=== PATIENT | female | born 1985 | race Asian ===

== ENCOUNTER 2021-10-04 08:06 | Outpatient (CLI) | payer OTHER, SELFPAY ==
[2021-10-04 09:01] LABS: Glucose Fasting Check 96 mg/dl (60-115)
[2021-10-04 13:08] LABS: Glucose GTT-Gestational 3 Hr 104 mg/dl (70-140)
[2021-10-04 13:19] LABS: Glucose 1 Hour Gest 200 mg/dl (70-180)
--- OUTSIDE RECORDS SUMMARY | 2021-10-11 01:11 | XMS_ITS | Encounter Summary ---
:1985 Author Organization [facility] Address [address] [place] [address] Care Team Providers Name Role Phone Elsewhere, Pcp Primary Care Provider Unavailable Reason for Visit Appointment Request (Routine) - Closed Specialty Diagnoses / Procedures Referred By Contact Refer red To Contact Maternal and Diagnoses Maternal Care For Known Or Suspected Abnormality And Damage NOS Sherly Thompson M.D. Medicine [address] [place] [address] Referral ID Status Reason Start Date Expiration Date Visits Requ ested Visits Authorized [id number] Closed 08/07/2021 08/07/2022 1 1 Encounter Details Date Type Department Care Team Description 09/19/2021 Routine Department of Radha Goddard Obstetrics and [place] Maternal Age Affecting Gynecology in [address] [place] [address] Management [place], [place] ([facility]) (Primary Dx) [address] [place] [id number] [place], [place] [phone] (Work) [phone] Social History Tobacco Use Types Packs/Day Years Used Date Smoking Tobacco: Never Alcohol Use Standard Drinks/Week Comments Never 0 (1 standard drink = 0.6 oz pure alcoho l) Alcohol Habits Answer Date Recorded How often do you have a drink containing alcohol? Never 09/19/2021 How many drinks containing alcohol do you have on a typical Not asked day when you are drinking? How often do you have six or more drinks on one occasion? No t asked Comment: Not asked Social Isolation Answer Date Recorded In a typical week, how many times do you talk on the Twice a week 09/19/2021 phone with family, friends, or neighbors? How often do you get together with friends or Once a week 09/19/2021 relatives? How often do you attend baptism or restorationism services? Never 09/19/2021 Do you belong to any clubs or organizations such as No 09/19/2021 baptism groups, unions, fraternal or athletic groups, or school groups? How often do you attend meetings of the clubs or Patient ref used 09/19/2021 organizations you belong to? Are you now , , , , 09/19/2021 never or living with a partner? Physical Activity Answer Date Recorded On average, how many days per week do you engage in moderate to 2 days 09/19/2021 strenuous exercise (like walking fast, running, jogging, dancing, swimming, biking, or other activities that cause a light or heavy sweat)? On average, how many minutes do you engage in exercise at th is 30 min 09/19/2021 level? Stress Answer Date Recorded Do you feel stress - tense, restless, nervous, or anxious, N ot at all 09/19/2021 or unable to sleep at night because your mind is troubled all the time - these days? Financial Resource Strain Answer Date Recorded How hard is it for you to pay for the very basics like Not h marlen at all 09/19/2021 food, housing, medical care, and heating? Intimate Partner Violence Answer Date Recorded Within the last year, have you been afraid of your partner o r No 09/19/2021 ex-partner? Within the last year, have you been humiliated or emotionall y No 09/19/2021 abused in other ways by your partner or ex-partner? Within the last year, have you been kicked, hit, slapped, or No 09/19/2021 otherwise physically hurt by your partner or ex-partner? Within the last year, have you been raped or forced to have any No 09/19/2021 kind of sexual activity by your partner or ex-partner? Food Insecurity Answer Date Recorded Within the past 12 months, you worried that your food would Never true 09/19/2021 run out before you got money to buy more. Within the past 12 months, the food you bought just didn't N ot asked last and you didn't have money to get more. Transportation Needs Answer Date Recorded In the past 12 months, has lack of transportation kept you f rom No 09/19/2021 medical appointments or from getting medications? In the past 12 months, has lack of transportation kept you f rom No 09/19/2021 meetings, work, or getting things needed for daily living? Housing Stability Answer Date Recorded In the last 12 months, was there a time when you were not ab le No 09/19/2021 to pay the mortgage or rent on time? In the last 12 months, how many places have you lived? 1 09/19/2021 In the last 12 months, was there a time when you did not hav e a No 09/19/[address] or slept in a retirement (including now)? Education Answer Date Recorded What is the highest level of school you have Some college, n o degree 09/19/2021 completed or the highest degree you have received? 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 - 09/19/2021 3:00 PM CDT SUBJECTIVE Markus Esteves is a 35 y.o. at 19w4d. Estimated Date of Delivery: 02/05/22 is determined by LMP consistent with 8 week ultrasound. She is here today for consultation from [facility] to issues as listed below. HISTORY OF PRESENT CONDITION OB History Para Term AB Living 2 1 1 1 SAB IAB Ectopic Molar Multiple Live Births 1 # Outcome Date GA Lbr Rishi/2nd Weight Sex Delivery Anes PTL Lv 2 Current 1 Term 01/28/19 3.997 kg M CS-LTranv EPI N HAMLET Complications: Failure to Progress in First Stage Issues This : 1. Fibroid uterus -Multiple fibroids. the largest is left lateral =4.3 x 3.3cm 2. 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 History of CD x 1 - planning repeat CD 4. AMA - declines genetic testing/screening - continue baby aspirin 5. History of pleural effusions - Ddx preeclampsia vs iatrogenic volume overload OBJECTIVE VITAL SIGNS Temperature: [36.3 ??C] 36.3 ??C Blood Pressure: (120)/(77) 120/77 SpO2: [99 %] 99 % Weight: [92.9 kg] 92.9 kg Pulse Rate: [83] 83 DIAGNOSTICS OB US Anatomy 09/19: Normal Anatomy Scan Acharya . No abnormalities identified. Size equals dates by LMP, first trimester ultrasound. The Placenta is without evidence of previa. The cervix is long and closed. The amniotic fluid appears normal. The adnexae appear normal. Multiple fibroids. the largest is left lateral =4.3 x 3.3cm ASSESSMENT / PLAN Ms. Esteves is a 35 y/o @ 20w1d who presents for [facility] consultation due to above issues. Anatomy ultrasound as written above was reviewed today with patient. Normal anatomy scan today. Inherent risks of advanced maternal age reviewed including aneuploidy, growth restriction, gestational diabetes, preeclampsia, delivery, section. We reviewed types of genetic screening and testing, patient declines at this time. She is currently taking baby aspirin, encouraged to continue. We reviewed risks related to fibroids in including hemorrhage, labor, degeneration and torsion. We reviewed delivery planning (TOLAC vs repeat CD) and patient is planning for repeat at this time. Does not plan on having more children currently. Of note, previously charted in patient diagnoses that patient has a history of cardiomyopathy-- this is not correct. Upon review of her history patient presented with shortness of breath on POD#5 and had a normal echo with LVEF 60-65%. Blood pressures were in the mild range. Normal plts andCr (LFTs not obtained). CT scan was notable for pleural effusions and symptoms resolved with lasix treatment. Ddx on chart review includes preeclampsia vs iatrogenic volume overload. No indication for repeat maternal echo at this time. In summary, patient may continue her regular care and does not need continued MFM management. Please refer back should any complications develop. Recommendations in addition to routine care: Declines genetic screening/testing Continue baby aspirin Consider screening growth US at 32 wga-- also follow up fibroid size at this time Consider testing with weekly NSTs at 36 wga Dispo: Routine care Debby Goddard M.D. MFM Fellow PGY-6 Pager [phone] documented in this encounter Plan of Treatment Not on filedocumented as of this encounter Visit Diagnoses Diagnosis Multigravida Advanced Maternal Age Affec ting Management (HCC) - Primary documented in this encounter Care Teams It Specialist Relationship Specialty Start Date End Date Elsewhere, Pcp PCP - General Family Medicine 02/03/19 documented as of this encounter
--- OUTSIDE RECORDS SUMMARY | 2021-10-11 01:11 | XMS_ITS | Encounter Summary ---
:1985 Author Organization [facility] Address [address] [place] [address] Care Team Providers Name Role Phone Elsewhere, Pcp Primary Care Provider Unavailable Encounter Details Date Type Department Care Team Description 08/07/2021 Orders Only Department of Nery Murrell Supervis ion Of Other Obstetrics and L, R.N. High Risk Pregnancies Gynecology in [address] [place] [address] Unspecified Trimester [place], [place] (HCC) (Primary Dx) [address] [place] [id number] [place] [phone] Social History Tobacco Use Types Packs/Day Years Used Date Smoking Tobacco: Never Alcohol Habits Answer Date Recorded How often [...] 09/19/2021 relatives? How often do you attend sabianist or confucianism services? Never 09/19/2021 Do you belong to any clubs or organizations such as No 09/19/2021 sabianist groups, unions, fraternal or athletic groups, or [...] place to sleep or slept in a [place] [facility] (including now)? Sex Assigned at Date Recorded Female 09/19/2021 11:18 AM CDT documented as of this encounter Plan of Treatment Not on filedocumented as of this encounter Visit Diagnoses Diagnosis Supervision Of Other High Risk Pregnanci es Unspecified Trimester (HCC) - Primary documented in this encounter Care Teams Valet Relationship Specialty Start Date End Date Elsewhere, Pcp PCP - General Family Medicine 02/03/19 documented as of this encounter
--- OUTSIDE RECORDS SUMMARY | 2021-10-11 01:11 | XMS_ITS | Encounter Summary ---
:1985 Author Organization [facility] Address [address] [place] [address] Care Team Providers Name Role Phone Elsewhere, Pcp Primary Care Provider Unavailable Reason for Visit Auth/Cert Specialty Diagnoses / Procedures Referred By Contact Refer red To Contact Diagnoses Shortness Of Breath cariomegaly Procedures R06.02 (ICD-10-CM) - Shortness Of Breath DIR Referral ID Status Reason Start Date Expiration Date Visits Requ ested Visits Authorized [id number] 1 1 Encounter Details Date Type Department Care Team Description 02/02/2019 - Hospital Encounter [facility] Flaquito Rubio M.D., M.P.H. [address] [place] [phone] Shortness Of Breath 02/03/2019 [facility] Joey Freeman M.D. [address] [place] [address] (Primary Dx) [facility], Third Floor [address] [place] [phone] Social History Tobacco Use Types Packs/Day Years [...] 09/19/2021 relatives? How often do you attend cheondoism or latter-day services? Never 09/19/2021 Do you belong to any clubs or organizations such as No 09/19/2021 cheondoism groups, unions, fraternal or athletic groups, or [...] place to sleep or slept in a assisted (including now)? Sex Assigned at Date Recorded Female 09/19/2021 11:18 AM CDT documented as of this encounter Last Filed Vital Signs Vital Sign Reading Time Taken Comments Blood Pressure 134/83 02/03/2019 3:41 PM SUPPLY CHAIN CONSULTANT Pulse 73 02/03/2019 3:41 PM SUPPLY CHAIN CONSULTANT Temperature 36.6 ??C (97.9 ??F) 02/03/2019 3:41 PM SUPPLY CHAIN CONSULTANT Respiratory Rate 22 02/03/2019 3:41 PM SUPPLY CHAIN CONSULTANT Oxygen Saturation 97% 02/03/2019 3:41 PM SUPPLY CHAIN CONSULTANT Inhaled Oxygen Concentration - - Weight 89.6 kg (197 lb 8.5 oz) 02/02/2019 10:13 PM SUPPLY CHAIN CONSULTANT Height 154.9 cm (5' 1) 02/02/2019 10:13 PM SUPPLY CHAIN CONSULTANT Body Mass Index 37.32 02/02/2019 10:13 PM SUPPLY CHAIN CONSULTANT documented in this encounter Discharge Summaries Beth Reynolds M.D. - 02/03/2019 3:43 PM CST DISCHARGE SUMMARY BRIEF OVERVIEW Discharge Provider: Joey Freeman M.D. Primary Care Providers: Elsewhere, Pcp (General) No address on file Primary Care Provider Phone Number: None Primary Care Provider Fax Number: None Admission Date: 02/02/2019 Discharge Date: 02/03/2019 PRINCIPAL DIAGNOSIS Dyspnea On Exertion SECONDARY DIAGNOSES Principal Problem: Dyspnea On Exertion Active Problems: Resection Teratoma Status Post Personal History Shortness Of Breath Resolved Problems: * No resolved hospital problems. * DISCHARGE DISPOSITION Home or Self Care [1] ACTIVE ISSUES REQUIRING FOLLOW UP Please establish care with a PCP as soon as you are able so they can continue to monitor you. Post-Hospital Provider: -If clinical suspicion for nephropathy continues to persist, consider a microalbumin:creatinine ratio. -Due to the ground glass opacities of the lungs, consider an AFP to monitor the status of her history of ovarian teratoma. OUTPATIENT FOLLOW UP No future appointments. TEST RESULTS PENDING AT DISCHARGE DETAILS OF HOSPITAL STAY REASON FOR ADMISSION Shortness Of Breath HOSPITAL COURSE Ms. 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 She had initially presented to an outside provider with these concerns and there was initial concernfor Peripartum Cardiomyopathy. A TTE was performed, but the read was initially unavailable, she was given 1 dose of Furosemide and she was then transferred and directly admitted to [facility] for further cares. On arrival here, she was hemodynamically stable and satting well on RA. Initial labs showing an NT-Pro BNP of 1138, High sensitivity Troponin of 14, repeat of 9, Mild anemia, Normal electrolytes. An outside CT Chest was overread which revealed no PE, but evidence of seemingly new ground glass opacities, discrete pulmonary nodules, and pleural effusions. The report of her outside TTE was obtained and showed a normal LVEF of 60-65% and no RV or diastolic abnormalities. Given these findings, Postpartumcardiomyopathy was felt to be less likely. The morning after admission, she felt well and much of her dyspnea had improved, seemingly with fluid removal from the diuretic. She was discharged in stable condition on 02/03/2019. CONSULTS ORDERED DURING THIS ADMISSION None CONDITION AT DISCHARGE stable Discharge instructions were provided to the patient and caregiver(s). LY CHAIN CONSULTANT documented in this encounter Discharge Instructions Discharge InstructionsJulia Fischer - 02/03/2019 7:57 AM CST You were discharged from the [facility] Medicine 2 ([facility]) Service. Please identify this service name if you call with questions after hospitalization. LY CHAIN CONSULTANT documented in this encounter Medications at Time of Discharge Medication Sig Dispensed Refills Start Date End Date ibuprofen (ADVIL,MOTRIN) Take 600 mg by mouth 0 1 04/02/2018 09/19/2021 600 mg tablet every 6 (six) hours as needed. documented as of this encounter H&P Notes Joey Freeman M.D. - 02/03/2019 4:05 PM CST #1 Volume overload #2 Dyspnea on exertion, improved #3 Ground glass and solid opacities on CT Chest #4 Post- day #6 following #5 Normocytic anemia #6 Leukocytosis #7 Elevated troponin I have discussed the history, physical exam, and assessment and plan with the medicine 2 team, and Iagree with the notes dated today. ??Please refer to the notes at the medicine 2 team for complete details. Brief Mrs. Esteves is a very pleasant 33-year-old woman admitted for dyspnea on exertion. On exam last night she was volume overloaded per the team. She was given furosemide, had effective diuresis and felt better. Her BNP was elevated up to 1138 within isolated trip own in elevation. Her chest imagingshowed pulmonary edema, pleural effusions and cardiomegaly. Her outside echocardiogram showed a normal ejection fraction of 60-65% and we did not feel the need to repeat it here. An informal bedside ultrasound was done by the procedure team and also confirmed a normal ejection fraction. Neither commented on diastolic function. For unclear reasons Mrs. Esteves was volume up though I see no cardiac cause. She did have lower extremity edema, and other causes of volume overload such as a low protein state from chronic liver disease (unlikely) or nephrotic syndrome could be entertained if fluid reaccumulates. Prior to discharge, we will assess O2 with ambulation. Indeterminate groundglass and solid nodular opacities, greater in the right should be followed up byher primary care provider. It would be reasonable to repeat a CT scan of the chest in 4-6 weeks. This scan could be non contrast. Of note, given her clinical response to diuresis, these do not appear to be causing her SOB. Finally, I will note that influenza and RSV were normal. LY CHAIN CONSULTANT Eric Arthur M.D. - 02/02/2019 11:07 PM CST I am seeing this patient with Dr. Guan. I saw and evaluated the patient, participating in the leach portions of the service and medical decision making. I have reviewed her excellent and comprehensive documentation and agree or amend as below. SUBJECTIVE Mrs. Esteves is a 33-year-old female with a history of immature teratoma s/p resection and adjuvant chemotherapy who presents for evaluation of dyspnea on exertion. Mrs. Esteves recently gave last week at 38 weeks and 2 days gestation. Her was only complicated by macrosomia, requiring a delivery. She went home on Saturday, 01/31. Around this time, she developed upper respiratory symptoms including nasal congestion and cough. Yesterday, she developed dyspnea on exertion. She can walk as far as down a standard hallway before having to stopto rest. She also had some orthopnea this morning. She presented to her local doctor, who performed echocardiogram at [facility] that reportedly showed an EF of 50%. She was directed to the [place] [facility] where she had a CT-PE showing bilateral pleural effusion, nodular ground-glass opacities, and negative for PE. Chest x-ray showed mild cardiomegaly but was otherwise clear.She received a dose of IV furosemide before transfer to [facility]. Speaking with Mrs. Esteves on the floor, she states she was in her usual health before the onset of URI symptoms and subsequent dyspnea on exertion. She denies sick contacts and did receive her flu vaccine this year. She is originally from [place] [facility], immigrated to [facility] at age 20. 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 She has hadno recurrence of this. She is currently breast-feeding, and her baby has been healthy since . She does endorse lower extremity edema, but states this has been stable since onset during her . She has no past cardiac history. She denies chest pain or dyspnea at rest. OBJECTIVE Physical Exam Vitals: 02/02/19 2215 BP: 152/81 Pulse: 77 Resp: Temp: SpO2: General: Alert, oriented, no acute distress. Heart: Regular rate and rhythm. No murmurs, gallops, or rubs. Lungs: Bibasilar crackles, diminished right lower field breath sounds. Breathing comfortably on roomair. Abdomen: Soft, nontender, nondistended. incision clean, dry, intact. Extremities: Trace lower extremity edema bilaterally. 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 Esteves is a 33-year-old female who presents for evaluation dyspnea on exertion in the setting of recent . She has clinical heart failure, with an initial concern for peripartum cardiomyopathy. Given her CT findings and URI symptoms, infection such as influenza deserves consideration as well. Nodular opacities can be seen with fungal infections as well, but she lacks other frankly infectious symptoms to go with this. is a risk for PE, though the CT she had does not appear consistent with this at my view. We will obtain basic labs including pro-BNP and one-time troponin, as well as swab for influenza and RSV. We will obtain an ECG and have radiology review her CT chest. We will need to track down the outside echo at [facility], and consider performing one here if this proves troublesome or does not provide all the information we need. She did receive furosemide in [place] and we will monitor her clinical status for improvement. Overall, she looks well and I am r eassured that her symptoms are primarily with exertion. Finally, she is currently and this will need to be a consideration with her ultimate treatment regimen. Rest per Dr. Guan. LY CHAIN CONSULTANT Nuvia Guan M.D. - 02/02/2019 10:02 PM CST SUBJECTIVE CHIEF COMPLAINT Ms. Markus Esteves is a 33 y.o. female who presents with shortness of breath. HISTORY OF PRESENT ILLNESS Ms. Esteves is a 33 year old woman with medical comorbidities of ovarian cancer s/p chemotherapy 2013who is day 5 from a C section delivery of a 38 1/7 weeks gestation now presenting with shortness of breath. She reports noticing shortness of breath with exertion last night. She is able to walk short distances, but going down the hallway would elicit dyspnea. She does report swelling of her lower extremities due to her . She denies any orthopnea, chest pain, nausea, or calf pain. Since saturday, she has also had nasal congestion, sore throat, and a cough. She denies any fevers, chills, or diarrhea. She called an outside provider and was brought in for workup. Per chart review, she has an EF of 50%, chest CT shows bilateral pleural effusion and ground glass nodular densities. Hemoglobin 9.8. She was a direct admit to the medicine service for further workup and management. No past medical history on file. Past Surgical History: Procedure Laterality Date ??? LAPAROTOMY N/A 09/01/2014 Laparotomy Notes: mini-laparotomy ??? OPERATIVE LAPAROSCOPY N/A 09/01/2014 Operative laparoscopy ??? OTHER CONVERTED SHX (SEE COMMENT) N/A 09/01/2014 Other Notes: Excision bilateral adnexal mass ??? OTHER CONVERTED SHX (SEE COMMENT) N/A 09/01/2014 1. Mini laparotomy. >2. Laparoscopic bilateral ovarian cystectomy. No family history on file. Social History Socioeconomic History ??? Marital status: Spouse name: Not on file ??? Number of children: Not on file ??? Years of education: Not on file ??? Highest education level: Not on file Occupational History ??? Not on file Social Needs ??? Financial resource strain: Not on file ??? Food insecurity: Worry: Not on file Inability: Not on file ??? Transportation needs: Medical: Not on file Non-medical: Not on file Tobacco Use ??? Smoking status: Never Smoker Substance and Sexual Activity ??? Alcohol use: Not on file ??? Drug use: Not on file ??? Sexual activity: Not on file Lifestyle ??? Physical activity: Days per week: Not on file Minutes per session: Not on file ??? Stress: Not on file Relationships ??? Social connections: Talks on phone: Not on file Gets together: Not on file Attends latter-day service: Not on file Active member of club or organization: Not on file Attends meetings of clubs or organizations: Not on file Relationship status: Not on file ??? Intimate partner violence: Fear of current or ex partner: Not on file Emotionally abused: Not on file Physically abused: Not on file Forced sexual activity: Not on file Other Topics Concern ??? Not on file Social History Narrative ??? Not on file Allergies not on file Active Home Medications Not on File REVIEW OF SYSTEMS Pertinent items are noted in HPI; all other review of systems was negative. OBJECTIVE VITAL SIGNS Temperature: [36.9 ??C] 36.9 ??C Resp Rate: [22] 22 Blood Pressure: (144-146)/(81-94) 144/94 SpO2: [93 %-98 %] 98 % Pulse Rate: [87-90] 87 PHYSICAL EXAM General: Alert, interactive, nontoxic appearing, no apparent distress Eyes: Pupils equal and round. Sclera anicteric ENT: Hearing intact, moist mucus membranes CV: +2 radial and posterior tibial pulses, S1 S2, normal rate, regular rhythm, no m/r/g Lungs: No increased work of breathing, crackles in bilateral lung bases Abdomen: Normal bowel sounds, soft, non-tender, non-distended Extremities: 2+ pitting edema in bilateral lower extremities Skin: No rashes or lesions on exposed surfaces. Neuro: Face symmetric, moves all extremities well Psych: Appropriate mood and affect, no evidence of disorganized thinking. ASSESSMENT / PLAN Ms. Esteves is a 33 year old woman with medical comorbidities of ovarian cancer s/p chemotherapy 2013who is day 5 from a C section delivery of a 38 1/7 weeks gestation now presenting with shortness of breath. #1 Resection Teratoma Status Post #2 Dyspnea On Exertion #3 Personal History #Dyspnea Differential diagnosis includes peripartum cardiomyopathy vs pulmonary embolism vs viral syndrome. 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 Pulmonaryembolism is less likely as patient is not hypoxemic. Given her URI symptoms, an infectious etiology should also be considered. Plan - CBC - BMP - Pro-BNP - Troponin - Influenza A/B and RSV PCR - Over read of outside CT - Obtain report of outside echo - EKG - Monitor I/Os and diurese as needed LY CHAIN CONSULTANT documented in this encounter Nursing Notes Gertrude Jung R.N. - 02/03/2019 5:06 PM CST Shift Goals: Clinical Goals for the Shift: Patient will discharge Identify possible barriers to meeting goals/advancing plan of care: none End of Shift Summary: Patient discharged home with family all questions answered. Gertrude Jung R.N. LY CHAIN CONSULTANT documented in this encounter Miscellaneous Notes Hospital Course - Beth Reynolds M.D. - 02/03/2019 1:18 AM CST Ms. 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 She had initially presented to an outside provider with these concerns and there was initial concernfor Peripartum Cardiomyopathy. A TTE was performed, but the read was initially unavailable, she was given 1 dose of Furosemide and she was then transferred and directly admitted to [facility] for further cares. On arrival here, she was hemodynamically stable and satting well on RA. Initial labs showing an NT-Pro BNP of 1138, High sensitivity Troponin of 14, repeat of 9, Mild anemia, Normal electrolytes. An outside CT Chest was overread which revealed no PE, but evidence of seemingly new ground glass opacities, discrete pulmonary nodules, and pleural effusions. The report of her outside TTE was obtained and showed a normal LVEF of 60-65% and no RV or diastolic abnormalities. Given these findings, Postpartumcardiomyopathy was felt to be less likely. The morning after admission, she felt well and much of her dyspnea had improved, seemingly with fluid removal from the diuretic. She was discharged in stable condition on 02/03/2019. LY CHAIN CONSULTANT documented in this encounter Plan of Treatment Not on filedocumented as of this encounter Procedures Procedure Name Priority Date/Time Associated Comments Diagnosis ALBUMIN, RANDOM, U Routine 02/03/2019 5:06 Result s for PM SUPPLY CHAIN CONSULTANT this procedure are in the results section. TROPONIN T, 5TH GEN, Timed 02/03/2019 12:24 Res ults for P PM SUPPLY CHAIN CONSULTANT this procedure are in the results section. CBC WITHOUT Routine 02/03/2019 5:30 Results for DIFFERENTIAL, B AM SUPPLY CHAIN CONSULTANT this procedu re are in the results section. BASIC METABOLIC Routine 02/03/2019 5:30 Results f or PANEL, S/P AM SUPPLY CHAIN CONSULTANT this procedure are in the results section. ECG Routine 02/02/2019 11:27 Results for PM SUPPLY CHAIN CONSULTANT this procedure are in the results section. NT-PRO B-TYPE Routine 02/02/2019 11:19 Results fo r NATRIURETIC PEPTIDE PM SUPPLY CHAIN CONSULTANT this pro cedure (BNP), S are in the results section. CBC WITH Routine 02/02/2019 11:19 Results for DIFFERENTIAL, B PM SUPPLY CHAIN CONSULTANT this procedu re are in the results section. TROPONIN T, 5TH GEN, Routine 02/02/2019 11:19 Res ults for P PM SUPPLY CHAIN CONSULTANT this procedure are in the results section. BASIC METABOLIC Routine 02/02/2019 11:19 Results for PANEL, S/P PM SUPPLY CHAIN CONSULTANT this procedure are in the results section. INTERPRETATION OF RAD - Routine 02/02/2019 11:16 Resul ts for OUTSIDE CT CHEST (most inpatients PM SUPPLY CHAIN CONSULTANT this pr ocedure and all are in the outpatients) results section. INFLUENZA A/B AND Routine 02/02/2019 11:14 Result s for RSV, PCR PM SUPPLY CHAIN CONSULTANT this procedure are in the results section. documented in this encounter Results Microalbumin, Random, Urine (02/03/2019 5:06 PM SUPPLY CHAIN CONSULTANT) P athologist Signature Albumin, 14.0 mg/L 02/03/2019 CHRISTIANO Random, U 5:51 PM SUPPLY CHAIN CONSULTANT Comment: ----ADDITIONAL INFORMATION---- This test has been modified from the man ufactangelr's instructions. Its performance characteri stics were determined by [facility] in a manner co nsistent with CLIA requirements. This test has not bee n cleared or approved by the U.S. Food and Drug Admin istration. Creatinine 183 mg/dL 02/03/2019 5:51 PM SUPPLY CHAIN CONSULTANT CHRISTIANO Albumin/Creatinine Ratio 8 <25 mg/g 02/03/2019 5:51 PM SUPPLY CHAIN CONSULTANT CHRISTIANO Specimen Anatomical Collection Method Collection Time Receive d Time (Source) Location / / Volume Laterality Urine (Urine, 02/03/2019 5:06 PM 02/04/20 19 5:06 Clean Catch) SUPPLY CHAIN CONSULTANT PM SUPPLY CHAIN CONSULTANT Beth Reynolds M.D. LAB URINE ORDERABLES Performing Organization Address City/[facility] Phon e Number [facility] - [address] [address] [address] [place] [address] Troponin T, 5th Generation (02/03/2019 12:24 PM SUPPLY CHAIN CONSULTANT) P athologist Signature Troponin T, 5th 9 <=10 ng/L [facility]/03[facility] SUPPLY CHAIN CONSULTANT Specimen Anatomical Collection Method Collection Time Receive d Time (Source) Location / / Volume Laterality Blood (Blood, 02/03/2019 12:24 02/03/2019 Venous) PM SUPPLY CHAIN CONSULTANT 12:31 PM SUPPLY CHAIN CONSULTANT Jose Spencer M.D. LAB BLOOD ADD-ON Performing Organization Address City/[facility] Phon e Number [facility] - [address] (ABNORMAL) CBC without Differential (02/03/2019 5:30 AM SUPPLY CHAIN CONSULTANT) Patholo gist Method Time Signature Hemoglobin 10.4 (L) 11.6 - 02/03/2019 DTL 15.0 g/dL 6:11 AM SUPPLY CHAIN CONSULTANT Hematocrit 32.6 (L) 35.5 - 02/03/2019 DTL 44.9 % 6:11 AM SUPPLY CHAIN CONSULTANT Erythrocytes 3.75 (L) 3.92 - 02/03/2019 [facility]TL 5.13 6:11 AM SUPPLY CHAIN CONSULTANT x10(12)/L MCV 86.9 78.2 - 02/03/2019 DTL 97.9 fL 6:11 AM SUPPLY CHAIN CONSULTANT RBC Distrib Width 15.5 12.2 - 02/03/2019 DTL 16.1 % 6:11 AM SUPPLY CHAIN CONSULTANT Platelet Count 310 157 - 371 02/03/2019 DTL x10(9)/L 6:11 AM SUPPLY CHAIN CONSULTANT Leukocytes 9.8 (H) 3.4 - 9.6 02/03/2019 DTL x10(9)/L 6:11 AM SUPPLY CHAIN CONSULTANT Specimen Anatomical Collection Method Collection Time Receive d Time (Source) Location / / Volume Laterality Blood (Blood, 02/03/2019 5:30 AM 02/04/20 19 6:03 Venous) SUPPLY CHAIN CONSULTANT AM SUPPLY CHAIN CONSULTANT Nuvia Guan M.D., M.P.H. LAB BLOOD ADD-ON Performing Organization Address City/State/ZIP Code Phon e Number [facility] - [address] [place], [place] [address] [address] [place] [address] [facility] [address] (ABNORMAL) BMP (Basic Metabolic Panel) (02/03/2019 5:30 AM SUPPLY CHAIN CONSULTANT) P athologist Signature Potassium, S 4.2 3.6 - 5.2 02/03/2019 DTL mmol/L 6:35 AM SUPPLY CHAIN CONSULTANT Sodium, S 141 135 - 145 02/03/2019 DTL mmol/L 6:35 AM SUPPLY CHAIN CONSULTANT Chloride, S 104 98 - 107 02/03/2019 DTL mmol/L 6:35 AM SUPPLY CHAIN CONSULTANT Bicarbonate, S 23 22 - 29 02/03/2019 DTL mmol/L 6:35 AM SUPPLY CHAIN CONSULTANT Anion Gap 14 7 - 15 02/03/2019 DTL 6:35 AM SUPPLY CHAIN CONSULTANT BUN (Blood Urea 18 6 - 21 02/03/2019 DTL Nitrogen), S mg/dL 6:35 AM SUPPLY CHAIN CONSULTANT Creatinine, S 0.86 0.59 - 1.04 02/03/2019 DTL mg/dL 6:35 AM SUPPLY CHAIN CONSULTANT eGFR-Non 88 >=60 02/03/2019 DTL Black/ mL/min/BSA 6:35 AM SUPPLY CHAIN CONSULTANT Citizen [place] Comment: ----ADDITIONAL INFORMATION---- Estimated GFR calculated using the 2009 CKD_EPI creatinine equation. eGFR-Black/ >90 >=60 mL/min/BSA 2018 6:35 AM SUPPLY CHAIN CONSULTANT DTL Comment: ----ADDITIONAL INFORMATION---- Estimated GFR calculated using the 2009 CKD_EPI creatinine equation. Calcium, Total, S 8.4 (L) 8.6 - 10.0 mg/dL 02/03/2019 6:35 AM SUPPLY CHAIN CONSULTANT DTL Glucose, S 84 70 - 140 mg/dL 02/03/2019 6:35 AM SUPPLY CHAIN CONSULTANT D TL Specimen Anatomical Collection Method Collection Time Receive d Time (Source) Location / / Volume Laterality Blood (Blood, 02/03/2019 5:30 AM 02/04/20 19 6:03 Venous) SUPPLY CHAIN CONSULTANT AM SUPPLY CHAIN CONSULTANT Nuvia Guan M.D., M.P.H. LAB BLOOD ADD-ON Performing Organization Address City/State/ZIP Code Phon e Number [facility] - [address] [place], [place] [address] [place] [address] [facility] [address] [facility] [address] ECG 12 Lead (02/02/2019 11:27 PM SUPPLY CHAIN CONSULTANT) P athologist Signature Ventricular Rate 76 BPM MUSE ECG/Min CT Interval 136 ms MUSE QRSD Interval 88 ms MUSE QT Interval 388 ms MUSE QTC Interval 436 ms MUSE P [place] 40 degrees MUSE R [place] 36 degrees MUSE T Wave [place] 33 degrees MUSE Specimen Anatomical Collection Method Collection Time Receive d Time (Source) Location / / Volume Laterality 02/02/2019 11:27 02/03/2019 5:37 PM SUPPLY CHAIN CONSULTANT AM SUPPLY CHAIN CONSULTANT Impressions MUSE - 02/03/2019 5:37 AM SUPPLY CHAIN CONSULTANT Normal sinus rhythm Normal ECG No previous ECGs available Reviewed by RADHA Wells Narrative This result has an attachment that is no t available. Procedure Note Bharat Barone M.D., Ph.D. - 9 IMPRESSION: Normal sinus rhythm Normal ECG No previous ECGs available Reviewed by RADHA Wells Nuvia Guan M.D., M.P.H. ECG ORDERABLES Performing Organization Address City/[facility]/ZIP Code Phon e Number MUSE MUSE NA (ABNORMAL) NT-Pro B-Type Natriuretic Peptide (BNP) (02/02/2019 11:19 PM SUPPLY CHAIN CONSULTANT) athologist Signature NT-Pro BNP 1138 (H) <=140 pg/mL 02/03/2019 DTL 12:39 AM SUPPLY CHAIN CONSULTANT Comment: NT-proBNP values less than 300 pg/mL hav e a 99% negative predictive value for excluding acute congestive heart macarena lure. A cutoff of 1200 pg/mL for patients with an eGFR<60 yields a diagno stic sensitivity and specificity of 89% and 72% for acute congestive heart f ailure. ??NT-proBNP values greater than 450 pg/mL are consistent with CHF i n adults under 50 years of age. Specimen Anatomical Collection Method Collection Time Receive d Time (Source) Location / / Volume Laterality Blood (Blood, 02/02/2019 11:19 02/02/2019 Venous) PM SUPPLY CHAIN CONSULTANT 11:54 PM SUPPLY CHAIN CONSULTANT Nuvia Guan M.D., M.P.H. LAB BLOOD ADD-ON Performing Organization Address City/State/[facility] Phon e Number [facility] - [address] [place] [address] Laboratories-[address] (ABNORMAL) Troponin T, 5th Generation (02/02/2019 11:19 PM SUPPLY CHAIN CONSULTANT) P athologist Signature Troponin T, 5th 14 (H) <=10 ng/L [facility]/02[facility] SUPPLY CHAIN CONSULTANT Specimen Anatomical Collection Method Collection Time Receive d Time (Source) Location / / Volume Laterality Blood (Blood, 02/02/2019 11:19 02/02/2019 Venous) PM SUPPLY CHAIN CONSULTANT 11:26 PM SUPPLY CHAIN CONSULTANT Nuvia Guan M.D., M.P.H. LAB BLOOD ADD-ON Performing Organization Address City/[facility] Phon e Number [facility] - [address] [place], [place] [address] [place], [place] [id number] [place] [address] (ABNORMAL) CBC with Differential (02/02/2019 11:19 PM SUPPLY CHAIN CONSULTANT) Patholo gist Method Time Signature Hemoglobin 11.5 (L) 11.6 - 02/03/2019 DTL 15.0 g/dL 12:01 AM SUPPLY CHAIN CONSULTANT Hematocrit 36.4 35.5 - 02/03/2019 DTL 44.9 % 12:01 AM SUPPLY CHAIN CONSULTANT Erythrocytes 4.19 3.92 - 02/03/2019 DTL 5.13 12:01 AM SUPPLY CHAIN CONSULTANT x10(12)/L MCV 86.9 78.2 - 02/03/2019 DTL 97.9 fL 12:01 AM SUPPLY CHAIN CONSULTANT RBC Distrib Width 15.3 12.2 - 02/03/2019 DTL 16.1 % 12:01 AM SUPPLY CHAIN CONSULTANT Platelet Count 312 157 - 371 02/03/2019 DTL x10(9)/L 12:01 AM SUPPLY CHAIN CONSULTANT Leukocytes 10.2 (H) 3.4 - 9.6 02/03/2019 DTL x10(9)/L 12:01 AM SUPPLY CHAIN CONSULTANT Neutrophils 8.33 (H) 1.56 - 02/03/2019 DTL 6.45 12:01 AM SUPPLY CHAIN CONSULTANT x10(9)/L Lymphocytes 1.01 0.95 - 02/03/2019 DTL 3.07 12:01 AM SUPPLY CHAIN CONSULTANT x10(9)/L Monocytes 0.69 0.26 - 02/03/2019 DTL 0.81 12:01 AM SUPPLY CHAIN CONSULTANT x10(9)/L Eosinophils 0.13 0.03 - 02/03/2019 DTL 0.48 12:01 AM SUPPLY CHAIN CONSULTANT x10(9)/L Basophils <0.03 0.01 - 02/03/2019 DTL 0.08 12:01 AM SUPPLY CHAIN CONSULTANT x10(9)/L Specimen Anatomical Collection Method Collection Time Receive d Time (Source) Location / / Volume Laterality Blood (Blood, 02/02/2019 11:19 02/02/2019 Venous) PM SUPPLY CHAIN CONSULTANT 11:54 PM SUPPLY CHAIN CONSULTANT Nuvia Guan M.D., M.P.H. LAB BLOOD ADD-ON Performing Organization Address City/State/ZIP Code Phon e Number [facility] - [address] [place], [place] [address] [place] [address] Laboratories-[facility] [address] (ABNORMAL) BMP (Basic Metabolic Panel) (02/02/2019 11:19 PM SUPPLY CHAIN CONSULTANT) P athologist Signature Potassium, S 4.1 3.6 - 5.2 02/03/2019 DTL mmol/L 12:39 AM SUPPLY CHAIN CONSULTANT Sodium, S 144 135 - 145 02/03/2019 DTL mmol/L 12:39 AM SUPPLY CHAIN CONSULTANT Chloride, S 103 98 - 107 02/03/2019 DTL mmol/L 12:39 AM SUPPLY CHAIN CONSULTANT Bicarbonate, S 22 22 - 29 02/03/2019 DTL mmol/L 12:39 AM SUPPLY CHAIN CONSULTANT Anion Gap 19 (H) 7 - 15 02/03/2019 DTL 12:39 AM SUPPLY CHAIN CONSULTANT BUN (Blood Urea 15 6 - 21 02/03/2019 DTL Nitrogen), S mg/dL 12:39 AM SUPPLY CHAIN CONSULTANT Creatinine, S 0.82 0.59 - 02/03/2019 DTL 1.04 mg/dL 12:39 AM SUPPLY CHAIN CONSULTANT eGFR-Non >90 >=60 02/03/2019 DTL Black/ mL/min/BSA 12:39 AM SUPPLY CHAIN CONSULTANT Citizen Of [place] Comment: ----ADDITIONAL INFORMATION---- Estimated GFR calculated using the 2009 CKD_EPI creatinine equation. eGFR-Black/ >90 >=60 mL/min/BSA 2018 12:39 AM SUPPLY CHAIN CONSULTANT DTL Comment: ----ADDITIONAL INFORMATION---- Estimated GFR calculated using the 2009 CKD_EPI creatinine equation. Calcium, Total, S 8.7 8.6 - 10.0 mg/dL 02/03/2019 12:3 9 AM SUPPLY CHAIN CONSULTANT DTL Glucose, S 95 70 - 140 mg/dL 02/03/2019 12:39 AM SUPPLY CHAIN CONSULTANT DTL Specimen Anatomical Collection Method Collection Time Receive d Time (Source) Location / / Volume Laterality Blood (Blood, 02/02/2019 11:19 02/02/2019 Venous) PM SUPPLY CHAIN CONSULTANT 11:54 PM SUPPLY CHAIN CONSULTANT Nuvia Guan M.D., M.P.H. LAB BLOOD ADD-ON Performing Organization Address City/State/ZIP Code Phon e Number [facility] - [address] [place], [place] [address] [place] [address] Laboratories-[facility] [address] Interpretation of Outside CT Chest (02/02/2019 11:16 PM SUPPLY CHAIN CONSULTANT) Anatomical Region Laterality Modality Chest, Thoracic RST LOS, Thoracic ARZ LOS, Thoracic N/A Computed Tomography FLA LOS Specimen (Source) Anatomical Collection Method Collection Time Re ceived Time Location / / Volume Laterality 02/02/2019 11:25 PM SUPPLY CHAIN CONSULTANT Impressions 02/03/2019 6:24 AM SUPPLY CHAIN CONSULTANT 1. Negative for acute pulmonary embolism. 2. Cardiomegaly with mild pulmonary shiraz a and small bilateral pleural effusions, greater on the right. 3. Indeterminate groundglass and solid n odular opacities, greater in the right lung. Findings may be infectious or infl ammatory. Narrative 02/03/2019 6:24 AM SUPPLY CHAIN CONSULTANT EXAM: ??INTERPRETATION OF OUTSIDE CT CHEST 1. Chest CT 2. With IV contrast. 3. Examination performed 02/02/2019 COMPARISON: ??Chest CT 01/03/2015 FINDINGS: ??Negative for acute pulmonary embolism. New indeterminate groundglass and solid nodular opacities, greatest in the right lung. Patchy dependent and lower lung opacities likely represent at electasis. Mild interlobular septal thickening suggestive of mild pulmonary edema. Small bilateral pleural effusions, greater on the right. Cardiom egaly. Remainder negative. Procedure Note Thelma Abarca M.D. - 02/03/2019Fo rmatting of this note might be different from the original. EXAM: INTERPRETATION OF OUTSIDE CT CHEST 1. Chest CT 2. With IV contrast. 3. Examination performed 02/02/2019 COMPARISON: Chest CT 01/03/2015 FINDINGS: Negative for acute pulmonary e mbolism. New indeterminate groundglass and solid nodular opacities, greatest in the right lung. Patchy dependent and lower lung opacities likely represent at electasis. Mild interlobular septal thickening suggestive of mild pulmonary edema. Small bilateral pleural effusions, greater on the right. Cardiom egaly. Remainder negative. IMPRESSION: 1. Negative for acute pulmonary embolism . 2. Cardiomegaly with mild pulmonary shiraz a and small bilateral pleural effusions, greater on the right. 3. Indeterminate groundglass and solid n odular opacities, greater in the right lung. Findings may be infectious or infl ammatory. Nuvia Guan M.D., M.P.H. IMG CT PROCEDURES Influenza A/B and Respiratory Syncytial Virus, PCR (02/02/2019 11:14 PM SUPPLY CHAIN CONSULTANT) Component Value Ref Range Test Analysis Performed Pathologis t Method Time At Signature Specimen NASOPHARYNGEAL 02/03/2019 DTL Source SWAB 10:56 AM SUPPLY CHAIN CONSULTANT Influenza A, Negative Negative 02/03/2019 DTL PCR 10:56 AM SUPPLY CHAIN CONSULTANT Influenza B, Negative Negative 02/03/2019 DTL PCR 10:56 AM SUPPLY CHAIN CONSULTANT Respiratory Negative Negative 02/03/2019 DTL Syncytial 10:56 AM Virus, PCR SUPPLY CHAIN CONSULTANT Specimen Anatomical Collection Method Collection Time Receive d Time (Source) Location / / Volume Laterality Varies 02/02/2019 11:14 02/03/2019 7:27 (Nasopharynx) PM SUPPLY CHAIN CONSULTANT AM SUPPLY CHAIN CONSULTANT Nuvia Guan M.D., M.P.H. LAB MICROBIOLOGY - GENERAL ORDERABLES Performing Organization Address City/State/ZIP Code Phon e Number [facility] - [address] [place], [place] [address] [address] [place] [address] Laboratories-[facility] [address] documented in this encounter Visit Diagnoses Diagnosis Dyspnea On Exertion - Primary Shortness Of Breath Resection Teratoma Status Post Personal History documented in this encounter Admitting Diagnoses Diagnosis Shortness Of Breath documented in this encounter Administered Medications Inactive Administered Medications - up to 3 most recent administrations Medication Order MAR Action Action Date Dose Rate Site acetaminophen tablet 1,000 mg Given 02/03/2019 3:32 PM SUPPLY CHAIN CONSULTANT 1,000 mg (TYLENOL) 1,000 mg, oral, Every 6 hours PRN, mild pain or score 1-3 of 10, Starting on Sat02/02/19 at 2256 Given 02/03/2019 8:10 AM SUPPLY CHAIN CONSULTANT 1,000 mg docusate sodium capsule 100 mg (COLACE) 100 mg, oral, 2 times daily PRN, constip ation, Starting on Sat02/03/19 at 0755, Do NOT crush or chew. heparin (porcine) Given 02/03/2019 1:17 PM SUPPLY CHAIN CONSULTANT 5,000 Units Right Lower injection 5,000 Units Abdomen 5,000 Units, subcutaneous, Every 8 hours scheduled, First dose on Sat02/03/19 at 0600 Given 02/03/2019 6:09 AM SUPPLY CHAIN CONSULTANT 5,000 Units Left Upper Arm (Back) ibuprofen tablet 600 mg (ADVIL,MOTRIN) Given 02/03/2019 11:43 AM SUPPLY CHAIN CONSULTANT 600 mg 600 mg, oral, Every 6 hours PRN, moderate pain or score 4-6 of 10, Starting on Sat02/03/19 at 0755, Take with food or milk if GI disturbances occur with use. documented in this encounter Active and Recently Administered Medications Times are shown in SUPPLY CHAIN CONSULTANT. Scheduled Medication Order 02/01/2019 02/02/2019 02/03/2019 heparin (porcine) injection 5,000 Units 0609 (Given - Provider: So Luna, R.N.)1317 (Given - Provider: Vivi Guerra RScar) 5,000 Units, subcutaneous, Every 8 hours scheduled, First dose on Sat02/03/19 at 0600 PRN Medication Order 02/01/2019 02/02/2019 02/03/2019 acetaminophen tablet 1,000 mg (TYLENOL) 0810 (Given - Provider: Vivi Guerra R.N.)1532 (Given - Provider: Gertrude Jung R.N.) 1,000 mg, oral, Every 6 hours PRN, mild pain or score 1-3 of 10, Starting 02/02/19 at 2256 docusate sodium capsule 100 mg (COLACE) 100 mg, oral, 2 times daily PRN, constip ation, Starting Sat02/03/19 at 0755, Do NOT crush or chew. ibuprofen tablet 600 mg (ADVIL,MOTRIN) 1143 (Given - Provider: Vivi Guerra, R.N.) 600 mg, oral, Every 6 hours PRN, moderat e pain or score 4-6 of 10, Starting Sat02/03/19 at 0755, Take with food or milk if GI disturbances occur with use. documented in this encounter Care Teams Casing Cooker Relationship Specialty Start Date End Date Elsewhere, Pcp PCP - General Family Medicine 02/03/19 documented as of this encounter
--- OUTSIDE RECORDS SUMMARY | 2021-10-11 01:11 | XMS_ITS | Encounter Summary ---
:1985 Author Organization [facility] Address [address] [place] [address] Care Team Providers Name Role Phone Unavailable Primary Care Provider Unavailable Encounter Details Date Type Department Care Team Description 09/01/2014 Hospital Encounter HX NO MAPPING Social History Tobacco Use Types Packs/Day Years Used Date Smoking Tobacco: Never Assessed Alcohol Habits Answer Date Recorded How often [...] How often do you attend cheondoism or taoism services? Never 09/19/2021 Do you belong to [...] place to sleep or slept in a chcf (including now)? Sex Assigned at Date Recorded Female 09/19/2021 11:18 AM CDT documented as of this encounter Plan of Treatment Not on filedocumented as of this encounter Visit Diagnoses Not on filedocumented in this encounter
--- OUTSIDE RECORDS SUMMARY | 2021-10-11 01:11 | XMS_ITS | Encounter Summary ---
:1985 Author Organization [facility] Address [address] [place] [address] Care Team Providers Name Role Phone Elsewhere, Pcp Primary Care Provider Unavailable Encounter Details Date Type Department Care Team Description 09/14/2021 Orders Only Department of Obstetrics Torrey Kim R.N. and Gynecology in [address] [place] [address] [place] [id number] [place] [address] [phone] Social History Tobacco Use Types Packs/Day Years [...] 09/19/2021 relatives? How often do you attend oriental orthodox or adventism services? Never 09/19/2021 Do you belong to any clubs or organizations such as No 09/19/2021 oriental orthodox groups, unions, fraternal or athletic groups, or [...] place to sleep or slept in a fpc (including now)? Sex Assigned at Date Recorded Female 09/19/2021 11:18 AM CDT documented as of this encounter Plan of Treatment Not on filedocumented as of this encounter Visit Diagnoses Not on filedocumented in this encounter Care Teams Wheel Aligner Relationship Specialty Start Date End Date Elsewhere, Pcp PCP - General Family Medicine 02/03/19 documented as of this encounter
--- OUTSIDE RECORDS SUMMARY | 2021-10-11 01:11 | XMS_ITS | Encounter Summary ---
:1985 Author Organization [facility] Address [address] [place] [address] Care Team Providers Name Role Phone Elsewhere, Pcp Primary Care Provider Unavailable Encounter Details Date Type Department Care Team Description 09/19/2021 Hospital Encounter Department of Sherly Thompson Super vision Of Other Obstetrics and M.D. High Risk Gynecology in [address] [facility] Pregnancies [place], [place] Unspecified [place] [address] Trimester (HCC) [address] [phone] [place], [place] (Work) [phone] Social History Tobacco Use Types Packs/Day Years [...] 09/19/2021 relatives? How often do you attend orthodoxy or shinto services? Never 09/19/2021 Do you belong to any clubs or organizations such as No 09/19/2021 orthodoxy groups, unions, fraternal or athletic groups, or [...] place to sleep or slept in a halfway (including now)? Education Answer Date Recorded What is the highest level of school you have Some college, n o degree 09/19/2021 completed or the highest degree you have received? Sex Assigned at Date Recorded Female 09/19/2021 11:18 AM CDT documented as of this encounter Medications at Time of Discharge Medication Sig Dispensed Refills Start Date End Date aspirin [address] tablet Take 81 mg by mouth 0 daily. cetirizine (ZyrTEC) 10 mg Chew 10 mg daily. 0 chewable tablet Take 1 tablet by 0 [id number] (VINATE mouth daily. ONE) 60 mg iron-1 mg per tablet documented as of this encounter Plan of Treatment Not on filedocumented as of this encounter Procedures Procedure Name Priority Date/Time Associated Comments Diagnosis US OB ADVANCED RAD - Routine 09/19/2021 3:09 Supervision Of Results for LEVEL ROBERTSON AND (most inpatients PM CDT Other High Risk t his procedure TRANSVAGINAL and all Pregnancies are in the outpatients) Unspecified results Trimester (HCC) section. documented in this encounter Results US OB Advanced Level Robertson and Transvaginal (09/19/2021 3:09 PM CDT) Anatomical Region Laterality Modality Body, Ultrasound OB RST LOS, Ultrasound ARZ LOS N/A Ultrasound Specimen (Source) Anatomical Location Collection Method / Collectio n Time Received Time / Laterality Volume Narrative 09/19/2021 3:22 PM CDT NICK BARAJAS OB Exam, 09/19/2021 EXAM INFORMATION Patient Name: ??NICK BARAJAS : ??1985 Age: ??35 yrs Sex: ??Female Ref Phys: ??JESSE OSEI Exam Date: 09/19/2021 Procedure: US OB ADVANCED LEVEL SINGLETO N AND TRANSVAGINAL Exam Site: [facility] OB [facility]2 Plurality: 1 OBHx: [G:(2)] ?F Trm:() Pre:() C-Sec:() Ab-I:( ) Ab-S:() Ect:() Multi:() Yulisa:() INDICATIONS FOR SONOGRAPHY Detailed Survey MEASUREMENTS ??george ??wks [+/-] (R james) % ?? BPD: 4.93 cm ?? 20w6d ??[+/-1.73] ??(4. 09 - 5.27) 80% FL: 3.37 cm ?? 20w4d ??[+/-1.80] ??(2.7 2 - 3.90) 58% HC: 18.61 cm ?? 21w0d ??[+/-1.48] ??(15 .90 - 19.82) 77% AC: 16.17 cm ?? 21w2d ??[+/-2.06] ??(12 .45 - 17.70) 79% HL: 3.2 cm ?20w3d ? (2.54 - 3.54) 64% RATIOS ??(Range) % ?? HC/AC: 1.15 ?(1.09 - 1. 26) 38% ?? FL/BPD: 0.68 ? FL/AC: 0.21 ? LONG BONES SURVEY ??cm ??wks [+/-] (Rang e) % ?? Humerus: 3.2 cm ?20w3d ? (2.54 - 3.54) 64% Ulna: ?? 2.98 cm ? Radius: 2.75 cm ? Femur: 3.37 cm ?? 20w4d ??[+/-1.80] ??( 2.72 - 3.90) 58% Tibia: 3.0 cm ? Fibula: 2.92 cm ? COMPUTATIONS GA: ?? 20w1d [+/-1.40] Method: BRANDON BRANDON: 02/05/2022 Sono GA: 20w4d [+/-1.40] Method: ?? BPD, HC, AC, FL OBSERVATIONS Amniotic Fluid Fluid Volume: ??Normal Placenta: Placenta is Posterior. ??There is no evidence of a placenta previa. Presentation: ?? Variable Growth: Within normal limits. FHR: 146 bpm Sex: Male ANATOMY Normal: Sag and Trans Cervical spine, Sa g and Trans Thoracic spine, Sag and Trans Lumbar spine, Sag and Trans Sacral spine, cerebellum, cisterna magna, cerebral ventricle, choroid plexus, midline falx, CSP, nuchal thickness, 4 chamber heart, RVOT, LVOT, 3 vessel view, aortic arch, ductal arch, diaphragm, anterior abdominal wall, abdominal cord insertion, cord insert into placenta, 3 vessel cord, situs, stomach, kidneys, renal arteries, bladder, face/orbits, upper lip/nose, profile/Nasal bone, upper extremities, lower extremities, hands, f eet COMMENTS Both transabdominal and transvaginal ult rasound was performed. Normal Anatomy Scan Robertson . No abnormalities id entified. Size equals dates by LMP, first trimester ultrasound. The Placenta is without evidence of previa. The cervix is long and closed. The amniotic fluid appears normal. The adnexae appear normal. Multiple fibroids. ??the largest is left lateral =4.3 x 3.3cm Preliminary Read by Cookie Rosa R.D.M.S. on 09/19/2021 3:09:13 PM. Field Rep: ??Cookie Rosa R.D. M.S. Thank You For This Referral Procedure Note Rodolfo Woodruff M.B.B.S., [facility] - 09/19 NICK BARAJAS OB Exam, 09/19/2021 EXAM INFORMATION Patient Name: NICK BARAJAS : 1985 Age: 35 yrs Sex: Female Ref Phys: JESSE Ti FARNAZ Exam Date: 09/19/2021 Procedure: US OB ADVANCED LEVEL SINGLETO N AND TRANSVAGINAL Exam Site: [facility] OB #2 Plurality: 1 OBHx: [G:(2)] F Trm:() Pre:() C-Sec:() Ab-I:() Ab-S:( ) Ect:() Multi:() Yulisa:() INDICATIONS FOR SONOGRAPHY Detailed Survey MEASUREMENTS george wks [+/-] (Range ) % BPD:4.93 cm 20w6d [+/-1.73] (4.09 - 5.2 7) 80% FL: 3.37 cm 20w4d [+/-1.80] (2.72 - 3.9 0) 58% HC: 18.61 cm 21w0d [+/-1.48] (15.90 - 1 9.82) 77% AC: 16.17 cm 21w2d [+/-2.06] (12.45 - 1 7.70) 79% HL: 3.2 cm 20w3d (2.54 - 3.54) 64% RATIOS (Range) % HC/AC:1.15 (1.09 - 1.26) 38% FL/BPD:0.68 FL/AC:0.21 LONG BONES SURVEY cm wks [+/-] (Range) % Humerus:3.2 cm 20w3d (2.54 - 3.54) 64% Ulna: 2.98 cm Radius:2.75 cm Femur:3.37 cm 20w4d [+/-1.80] (2.72 - 3 .90) 58% Tibia:3.0 cm Fibula:2.92 cm COMPUTATIONS GA: 20w1d [+/-1.40] Method: BRANDON BRANDON: 02/05/2022 Sono GA: 20w4d [+/-1.40] Method: BPD, HC, AC, FL OBSERVATIONS Amniotic Fluid Fluid Volume: Normal Placenta: Placenta is Posterior. There i s no evidence of a placenta previa. Presentation: Variable Growth: Within normal limits. FHR: 146 bpm Sex: Male ANATOMY Normal: Sag and Trans Cervical spine, Sa g and Trans Thoracic spine, Sag and Trans Lumbar spine, Sag and Trans Sacral spine, cerebellum, cisterna magna, cerebral ventricle, choroid plexus, midline falx, CSP, nuchal thickness, 4 chamber heart, RVOT, LVOT, 3 vessel view, aortic arch, ductal arch, diaphragm, anterior abdominal wall, abdominal cord insertion, cord insert into placenta, 3 vessel cord, situs, stomach, kidneys, renal arteries, bladder, face/orbits, upper lip/nose, profile/Nasal bone, upper extremities, lower extremities, hands, f eet COMMENTS Both transabdominal and transvaginal ult rasound was performed. Normal Anatomy Scan Robertson . No abnormalities id entified. Size equals dates by LMP, first trimester ultrasound. The Placenta is without evidence of previa. The cervix is long and closed. The amniotic fluid appears normal. The adnexae appear normal. Multiple fibroids. the largest is left l ateral =4.3 x 3.3cm Preliminary Read by Cookie Rosa R.D.M.S. on 09/19/2021 3:09:13 PM. Field Rep: Cookie Rosa R.D.M. S. Thank You For This Referral Jesse Osei M.D. IMG OB US PROCEDURES documented in this encounter Visit Diagnoses Diagnosis Supervision Of Other High Risk Pregnanci es Unspecified Trimester (HCC) documented in this encounter Care Teams Production Finisher Relationship Specialty Start Date End Date Elsewhere, Pcp PCP - General Family Medicine 02/03/19 documented as of this encounter
--- OUTSIDE RECORDS SUMMARY | 2021-10-11 01:11 | XMS_ITS | Encounter Summary ---
:1985 Author Organization [facility] Address [address] [place] [address] Care Team Providers Name Role Phone Unavailable Primary Care Provider Unavailable Encounter Details Date Type Department Care Team Description 09/01/2014 Hospital Encounter HX RST UNIT 5-4 GYNECOLOGY Social History Tobacco Use Types Packs/Day Years [...] 09/19/2021 relatives? How often do you attend caodaism or confucianism services? Never 09/19/2021 Do you belong to any clubs or organizations such as No 09/19/2021 caodaism groups, unions, fraternal or athletic groups, or [...] place to sleep or slept in a m[facility]p (including now)? Sex Assigned at Date Recorded Female 09/19/2021 11:18 AM CDT documented as of this encounter Last Filed Vital Signs Vital Sign Reading Time Taken Comments Blood Pressure 120/77 09/01/2014 3:47 PM NIBP - Value from CDT [employer]. Pulse 76 09/01/2014 3:47 PM Value from artplus. CDT Temperature - - Respiratory Rate 16 09/01/2014 3:45 PM CDT Oxygen Saturation - - Inhaled Oxygen - - Concentration Weight 68.3 kg (150 lb 9.2 09/01/2014 6:25 AM oz) CDT Height 156 cm (5' 1.42) 09/01/2014 6:25 AM CDT Body Mass Index 28.07 09/01/2014 6:25 AM CDT documented in this encounter Plan of Treatment Not on filedocumented as of this encounter Procedures Procedure Name Priority Date/Time Associated Comments Diagnosis INHIBIN A AND B, TM, S Routine 09/01/2014 11:05 R esults for this AM CDT procedure are i n the results section. ALPHA-FETOPROTEIN Routine 09/01/2014 11:05 Result s for this (AFP) TM, S AM CDT procedure are i n the results section. HUMAN CHORIONIC Routine 09/01/2014 11:05 Results for this GONADOTROPIN (HCG), AM CDT procedur e are in TINO, the results section. LACTATE DEHYDROGENASE Routine 09/01/2014 10:46 Re sults for this (LD), S AM CDT procedure are i n the results section. HXGENERAL PATHOLOGY Routine 09/01/2014 9:00 AM Re sults for this REPORT CDT procedure are i n the results section. documented in this encounter Results hCG (Human Chorionic Gonadotropin), Quantitative, (09/01/2014 11:05 AM CDT) [facility] gist Method Time Signature HCG, <0.5 <5.0 [facility] Quantitative, Negative; LABORATORIES - , S 5.0-25.0 [facility] Indeterminat CAMPUS e; >25.0 Positive IU/L Specimen Anatomical Collection Method Collection Time Receive d Time (Source) Location / / Volume Laterality 09/01/2014 11:05 09/01/2014 AM CDT 11:05 AM CDT Chapito Thomson M.D. LAB BLOOD ADD-ON Performing Organization Address City/State/ZIP Code Phon e Number [facility] LABORATORIES - [address] [place], [place] [address] [facility] Inhibin A and B, Tumor Marker (09/01/2014 11:05 AM CDT) athologist Signature Inhibin A, 6.3 <97.5 [facility] Tumor Marker, ([place] LABORATORIES - S usal); [facility] <2.1 CAMPUS (Postmenop ausal) PG/ML Comment: ? ADDITIONAL INFORMATIO N ? The testing method is an immunoenzymatic assay ? manufactured by [employer]. and performed ? on the UniCel DxI 800. ? Values obtained with different assay met hods or kits ? may be different and cannot be used inte rchangeably. ? Test results cannot be interpreted as ab solute ? evidence for the presence or absence of ? malignant disease. ? Inhibin A values are not interpretable i n ? females for the investigation o f ? malignant disease. ? Inhibin B, S 17 SeeComment PG/ML [facility] Comment: ? REFERENCE VALUE------ ? <139 (Premenopausal, Follicular) ? <92 (Premenopausal, Luteal) ? <10 (Postmenopausal) ? ADDITIONAL INFORMATIO N ? The testing method is a manual immunoenz ymatic assay manufactured by [employer] ? [employer] ??Values obtained with diff erent assay methods or kits may be ? different and cannot be used interchange ably. If this test is being ordered ? as a tumor marker, results cannot be int erpreted as absolute evidence for the ? presence or absence of malignant disease . ? Specimen Anatomical Collection Method Collection Time Receive d Time (Source) Location / / Volume Laterality 09/01/2014 11:05 09/01/2014 AM CDT 11:05 AM CDT Chapito Thomson M.D. LAB BLOOD ADD-ON Performing Organization Address City/State/ZIP Code Phon e Number [facility] LABORATORIES - [address] [place], [place] [address] [facility] (ABNORMAL) AFP (Alpha-Fetoprotein), Tumor Marker (09/01/2014 11:05 AM CDT) [facility] gist Method Time Signature Alpha-Fetopro 407 (H) SeeComment [facility] tein, Tumor NG/ML LABORATORIES - Marker, S [facility] Comment: ? REFERENCE VALUE------ ? <6.0 ? Reference values are for non- ? subjects only; ? production of AFP ? elevates values in ? women. ? ADDITIONAL INFORMATIO N ? The testing method is an immunoenzymatic assay ? manufactured by [employer] and performed ? on the UniCel DxI 800. ? Values obtained with different assay met hods or ? kits may be different and cannot be used ? interchangeably. ? Test results cannot be interpreted as ab solute ? evidence for the presence or absence of ? malignant disease. ? Alpha-Fetoprotein values are not interpr etable in ? females for the investigation o f ? malignant disease. ? Specimen Anatomical Collection Method Collection Time Receive d Time (Source) Location / / Volume Laterality 09/01/2014 11:05 09/01/2014 AM CDT 11:05 AM CDT Chapito Thomson M.D. LAB BLOOD ADD-ON Performing Organization Address City/State/ZIP Code Phon e Number [facility] LABORATORIES - [address] [place], [place] [address] [facility] LD (Lactate Dehydrogenase) (09/01/2014 10:46 AM CDT) [facility] gist Method Time Signature Lactate 181 122 - 222 [facility] Dehydrogenase U/L LABORATORIES - (LD), S [facility] Specimen Anatomical Collection Method Collection Time Receive d Time (Source) Location / / Volume Laterality 09/01/2014 10:46 09/01/2014 AM CDT 10:46 AM CDT Chapito Thomson M.D. LAB BLOOD NON ADD-ON Performing Organization Address City/State/ZIP Code Phon e Number [facility] LABORATORIES - [address] [place], [place] [address] [facility] Hx general Pathology Report (09/01/2014 9:00 AM CDT) Specimen Anatomical Collection Method Collection Time Receive d Time (Source) Location / / Volume Laterality 09/01/2014 9:00 AM 201 5 9:00 CDT AM CDT Narrative [facility] - 09/01/2014 9:00 AM CDT ??09/01/2014 Surgical Pathology ?([id number]) ? Requested By: Ramon Rodriguez M.D. ? ?[phone] ? SLIDE DISPOSITION: ? DIAGNOSIS: ?? A. 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 ?? Immunohistochemical stains (block A6) s how positivity for Glypican 3 in teratoma and yolk sac elements. ??St aining for CD30 and PLAP is negative. ??See synoptic report. ? B. Ovary, left mass No. 1, cystectomy: ??Mature cystic teratoma measuring 8.8 cm in greatest dimension. ?? C. Ovary, left mass No. 2, cystectomy: ??Mature cystic teratoma measuring 4.9 cm in greatest dimension. ?? Participated in interpretation: ??Shirin Jolley M.D. [phone] and Stu Mariee M.D. [phone] ? Seen in consultation with Dr. Rodolfo jackson. ?? Synoptic Report Specimen: Bilateral ovarian masses. ?? Procedure: Bilateral mass excision. ?? Lymph Node Sampling: Not performed. ?? Specimen Integrity: ?Right ovary: Capsule ruptured. ?Left ovary: Capsule intact. ?? Primary Tumor Site: Right ovary. ?? Ovarian Surface Involvement: Absent. ?? Tumor Size: Right: 6.6 x 5.5 x 2.0 cm. ?? Histologic Type: Mixed malignant germ c ell tumor: ??Predominantly (80%) immature teratoma (grade 2). ??Mi nor (20%) yolk sac component. ?? Histologic Grade: ??GX: Cannot be asses sed. ?? Implants: Not applicable/not sampled. ? ? Extent of Involvement: ?Right ovary: Involved. ?Right fallopian tube: Not appli cable. ?Left ovary: Not involved. ?Left fallopian tube: Not applic able. ?Uterus: Not applicable. ?Omentum: Not applicable. ?Peritoneum: Not applicable. ?? Pathologic Staging (AJCC, 7th edition): ?Primary tumor: ??pT1c ?Regional lymph nodes: pNX ? Number examined (total): 0 ? Number involved (total): 0 ?Distant Metastasis: Not applica ble. ? The synoptic report incorporates inform ation from all relevant surgical material and includes all requ ired data elements of the current CAP Cancer Protocol. ? 09/07/2014 12:44 Interpreted by: Julio Dennis M.D. [id number] Report electronically signed by Julio Dennis M.D. Transcribed by: [email or web address] 09/01/2014 09:39:32 ? PRELIMINARY FROZEN SECTION CONSULTATION : A. Ovary, right mass, excision: ??Germ cell tumor with teratomatous elements. ? B. Ovary, left mass No. 1, cystectomy: ??Mature cystic teratoma measuring 8.8 cm in greatest dimension. ?? C. Ovary, left mass No. 2, cystectomy: ??Mature cystic teratoma measuring 4.9 cm in greatest dimension. ?? HOLD OVER to rule out other germ cell e lements and immature components. ?? Frozen section histologic interpretatio n performed by: ??Julio Dennis M.D. ?? GROSS DESCRIPTION: A. Received fresh labeled right ovaria n mass is a 36.5 gram, 6.6 x 5.5 x 2.0 cm disrupted ovarian mass wit h a smooth surface. ?? Sectioning shows a heterogenous, solid, red-holt and gelatinous cut surface with scant calcifications. ??No papillary excrescence identified. ??Senior Internet Sales Consultant sections a re submitted. ??Grossed by /[facility]. ?? B. Received fresh labeled left ovarian mass is a 65.9 gram, 8.8 x 6.8 x 2.4 cm holt-pink biloculated cyst. ??The specimen is deflated and displays a smooth surface. ??Openin g reveals one cyst containing sanguinous fluid and contains the holt-g reen debris, bezoar, fat and skin. ??No papillary excrescences are g rossly identified. ?? Senior Internet Sales Consultant sections are submitted. ??Grossed [facility]. ?? C. Received fresh labeled left ovarian mass #2 is a 6.2 gram, 4.9 x 3.2 x 1.5 cm deflated unilocular cyst . ??Opening reveals holt-sierra grumous material and a bezoar. ??No pap illary excrescences are identified. ??Senior Internet Sales Consultant sections a re submitted. ??Grossed by [facility]. ? BLOCK SUMMARY: Part A: ??Right ovarian mass ?1 Rt ovarian mass-1 ?2 Rt ovarian mass-2 ?3 Rt ovarian mass-3 ?4 Rt ovarian mass-4 ?5 Rt ovarian mass-5 ?6 Rt ovarian mass-6 ?7 Rt ovarian mass-7 ?8 Rt ovarian mass-8 ?9 Rt ovarian mass-9 ?? Part B: ??Left ovarian mass ?1 Lt ovarian mass ?? Part C: ??Left ovarian mass #2 ?1 Lt ovarian mass #2 - 1 ?2 Lt ovarian mass #2 - 2 ?? Stu Mariee M.D., Ph.D. ? Procedure Note 05/25/2017 09/01/2014 Surgical Pathology ([id number]) Requested By: Ramon Rodriguez M.D. [phone] SLIDE DISPOSITION: DIAGNOSIS: A. Ovary, right mass, excision: Mixed m alignant germ cell tumor is identified forming a 6.6 x 5.5 x 2.0 cm mass, encompassing teratoma with immaturity (grade 2) (80%) and yol k sac elements (20%). Immunohistochemical stains (block A6) s how positivity for Glypican 3 in teratoma and yolk sac elements. Stai lenora for CD30 and PLAP is negative. See synoptic report. B. Ovary, left mass No. 1, cystectomy: Mature cystic teratoma measuring 8.8 cm in greatest dimension. C. Ovary, left mass No. 2, cystectomy: Mature cystic teratoma measuring 4.9 cm in greatest dimension. Participated in interpretation: Klaudia Jolley M.D. [phone] and Stu Mariee M.D. [phone] Seen in consultation with Dr. Rodolfo jackson. Synoptic Report Specimen: Bilateral ovarian masses. Procedure: Bilateral mass excision. Lymph Node Sampling: Not performed. Specimen Integrity: Right ovary: Capsule ruptured. Left ovary: Capsule intact. Primary Tumor Site: Right ovary. Ovarian Surface Involvement: Absent. Tumor Size: Right: 6.6 x 5.5 x 2.0 cm. Histologic Type: Mixed malignant germ c ell tumor: Predominantly (80%) immature teratoma (grade 2). Gerson r (20%) yolk sac component. Histologic Grade: GX: Cannot be assesse d. Implants: Not applicable/not sampled. Extent of Involvement: Right ovary: Involved. Right fallopian tube: Not applicable. Left ovary: Not involved. Left fallopian tube: Not applicable. Uterus: Not applicable. Omentum: Not applicable. Peritoneum: Not applicable. Pathologic Staging (AJCC, 7th edition): Primary tumor: pT1c Regional lymph nodes: pNX Number examined (total): 0 Number involved (total): 0 Distant Metastasis: Not applicable. The synoptic report incorporates inform ation from all relevant surgical material and includes all requ ired data elements of the current CAP Cancer Protocol. 09/07/2014 12:44 Interpreted by: Julio Dennis M.D. [id number] Report electronically signed by Julio Dennis M.D. Transcribed by: [email or web address] 09/01/2014 09:39:32 PRELIMINARY FROZEN SECTION CONSULTATION : A. Ovary, right mass, excision: Germ ce ll tumor with teratomatous elements. B. Ovary, left mass No. 1, cystectomy: Mature cystic teratoma measuring 8.8 cm in greatest dimension. C. Ovary, left mass No. 2, cystectomy: Mature cystic teratoma measuring 4.9 cm in greatest dimension. HOLD OVER to rule out other germ cell e lements and immature components. Frozen section histologic interpretatio n performed by: Julio Dennis M.D. GROSS DESCRIPTION: A. Received fresh labeled right ovaria n mass is a 36.5 gram, 6.6 x 5.5 x 2.0 cm disrupted ovarian mass wit h a smooth surface. Sectioning shows a heterogenous, solid, red-holt and gelatinous cut surface with scant calcifications. No p apillary excrescence identified. Senior Internet Sales Consultant sections are submitted. Grossed by /[facility]. B. Received fresh labeled left ovarian mass is a 65.9 gram, 8.8 x 6.8 x 2.4 cm holt-pink biloculated cyst. The specimen is deflated and displays a smooth surface. Opening reveals one cyst containing sanguinous fluid and contains the holt-g reen debris, bezoar, fat and skin. No papillary excrescences are carole ssly identified. Senior Internet Sales Consultant sections are submitted. Grossed [facility]. C. Received fresh labeled left ovarian mass #2 is a 6.2 gram, 4.9 x 3.2 x 1.5 cm deflated unilocular cyst . Opening reveals holt-sierra grumous material and a bezoar. No papil fay excrescences are identified. Senior Internet Sales Consultant sections are submitted. Grossed by [facility]. BLOCK SUMMARY: Part A: Right ovarian mass 1 Rt ovarian mass-1 2 Rt ovarian mass-2 3 Rt ovarian mass-3 4 Rt ovarian mass-4 5 Rt ovarian mass-5 6 Rt ovarian mass-6 7 Rt ovarian mass-7 8 Rt ovarian mass-8 9 Rt ovarian mass-9 Part B: Left ovarian mass 1 Lt ovarian mass Part C: Left ovarian mass #2 1 Lt ovarian mass #2 - 1 2 Lt ovarian mass #2 - 2 Stu Mariee M.D., Ph.D. Ramon Rodriguez M.D. LAB PATHOLOGY/CYTOLOGY ORDER RENNY Performing Organization Address City/State/ZIP Code Phon e Number [facility]IES - [address] [place], [place] [address] [facility] documented in this encounter Visit Diagnoses Not on filedocumented in this encounter
--- OUTSIDE RECORDS SUMMARY | 2021-10-11 01:11 | XMS_ITS | Encounter Summary ---
:1985 Author Organization [facility] Address [address] [place] [address] Care Team Providers Name Role Phone Elsewhere, Pcp Primary Care Provider Unavailable Encounter Details Date Type Department Care Team Description 07/05/2021 [facility] Sherly Thompson C ardiomyopathy AND CLINICS M.DTelma Peripartum [facility] Delivery (HCC) [place], [place] (Primary Dx ) [phone] Social History Tobacco Use Types Packs/Day Years [...] 09/19/2021 relatives? How often do you attend worship or uatsdin services? Never 09/19/2021 Do you belong to any clubs or organizations such as No 09/19/2021 worship groups, unions, fraternal or athletic groups, or [...] or slept in a halfway (including now)? 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
--- OUTSIDE RECORDS SUMMARY | 2021-10-11 01:11 | XMS_ITS | Encounter Summary ---
:1985 Author Organization [facility] Address [address] [place] [address] Care Team Providers Name Role Phone Unavailable Primary Care Provider Unavailable Encounter Details Date Type Department Care Team Description 02/02/2019 Ancillary Procedure Department of Radiology Amara Arthur in [facility] aileen Cormier [address] [facility] [address] [place] [phone] (Wo rk) Social History Tobacco Use Types Packs/Day Years [...] 09/19/2021 relatives? How often do you attend quaker or anglican services? Never 09/19/2021 Do you belong to any clubs or organizations such as No 09/19/2021 quaker groups, unions, fraternal or athletic groups, or [...] Procedure Name Priority Date/Time Associated Comments Diagnosis INTERPRETATION OF RAD - Routine 02/02/2019 11:16 Resul ts for OUTSIDE CT CHEST (most inpatients PM OPTICAL MECHANIC this pr ocedure and all are in the outpatients) results section. documented in this encounter Results Interpretation of Outside CT Chest (02/02/2019 11:16 PM OPTICAL MECHANIC) Anatomical Region Laterality Modality Chest, Thoracic RST LOS, Thoracic ARZ LOS, Thoracic N/A Computed Tomography FLA LOS Specimen (Source) Anatomical Collection Method Collection Time Re ceived Time Location / / Volume Laterality 02/02/2019 11:25 PM OPTICAL MECHANIC Impressions 02/03/2019 6:24 AM OPTICAL MECHANIC 1. Negative for acute pulmonary embolism. 2. Cardiomegaly with mild pulmonary shiraz a and small bilateral pleural effusions, greater on the right. 3. Indeterminate groundglass and solid n odular opacities, greater in the right lung. Findings may be infectious or infl ammatory. Narrative 02/03/2019 6:24 AM OPTICAL MECHANIC EXAM: ??INTERPRETATION OF OUTSIDE CT CHEST 1. [...] Cardiom egaly. Remainder negative. Procedure Note Thelma Abarac M.D. - 02/03/2019Fo rmatting of this note [...] Nuvia Guan M.D., M.P.H. IMG CT PROCEDURES documented in this encounter Visit Diagnoses Not on filedocumented in this encounter
--- OUTSIDE RECORDS SUMMARY | 2021-10-11 01:11 | XMS_ITS | Clinical Summary ---
:1985 Author Organization [facility] Address [address] [place] [address] Support Name Relationship Address Phone Lamont Varela Spouse [address] [phone] [place] [address] Care Team Providers Name Role Phone Elsewhere, Pcp Primary Care Provider Unavailable Source Comments Patient records contain information from all sites at [facility]. For routine questions regarding patient records, call [phone] during business hours, M-F 8:00 AM - 5:00 PM Central Time. Record requests for emergency care only can be directed to [phone] at any time.[facility] Allergies No known active allergies Medications Medication Sig Dispensed Refills Start Date End Date Status Take 1 tablet 0 Active yzucoco-Vh-pxos-FA by mouth (VINATE ONE) 60 mg daily. iron-1 mg per tablet cetirizine Chew 10 mg 0 Active (ZyrTEC) 10 mg daily. chewable tablet aspirin [address] Take 81 mg by 0 Active tablet mouth daily. ibuprofen Take 600 mg by 0 01/31/2019 09/19/2021 Dis continued (ADVIL,MOTRIN) 600 mouth every 6 mg tablet (six) hours as needed. Active Problems Patient Care Coordination Note Formatting of this note might be differe nt from the original. Pt is being seen in [place]. 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 08/07/2021 Orders Only Maternal and Handy, Supervisi on Of Other Medicine Nery Lindquist R.N. High Risk Pregnancies Unspecified Trimester (HCC) (Primary Dx) from Last 3 Months Social History Tobacco Use Types Packs/Day Years [...] 09/19/2021 relatives? How often do you attend tenriism or mosque services? Never 09/19/2021 Do you belong to any clubs or organizations such as No 09/19/2021 tenriism groups, unions, fraternal or athletic groups, or [...] place to sleep or slept in a residential (including now)? Education Answer Date Recorded What is the highest level of school you have Some college, n o degree 09/19/2021 completed or the highest degree you have received? Estimated Date of Delivery Comments Yes 02/05/2022 Based on last menstr ual period of 05/01/2021 (Exact Date) Sex Assigned at Date Recorded Female 09/19/2021 11:18 AM CDT Last Filed Vital Signs Vital Sign Reading Time Taken Comments Blood Pressure 120/77 09/19/2021 3:20 PM CDT Pulse 83 09/19/2021 3:20 PM CDT Temperature 36.3 ??C (97.4 ??F) 09/19/2021 3:20 PM CDT Respiratory Rate 22 02/03/2019 3:41 PM PANAMA HAT BLOCKER Oxygen Saturation 99% 09/19/2021 3:20 PM CDT Inhaled Oxygen Concentration - - Weight 92.9 kg (204 lb 12.9 oz) 09/19/2021 3:18 PM CDT Height 154.9 cm (5' 1) 02/02/2019 10:13 PM PANAMA HAT BLOCKER Body Mass Index 38.7 02/02/2019 10:13 PM PANAMA HAT BLOCKER Plan of Treatment Health Maintenance Due Date Last Done Comments Fasting Lipid Panel 1985 HIV Screening 1985 Hepatitis B Vaccines (1 of 3 1984 - 3-dose series) Hepatitis C Screening 1985 Cervical Cancer Screening 10/16/2018 10/17/2015 Depression Screening (Annual 03/04/2021 PHQ-2) Influenza Vaccine (#1) 2022 11/19/2019, 12/02/2018, 10/20/2017 DTaP,Tdap,and Td Vaccines (2 12/02/2028 12/02/2018 - Td or Tdap) COVID-19 Vaccine Completed 03/17/2021, 06/28/2020, 06/07/2020 Pneumococcal vaccine (0-64 Aged Out No lo nger eligible based years) on patient's age to complete this to pic Procedures Procedure Name Priority Date/Time Associated Comments Diagnosis US OB ADVANCED RAD - Routine 09/19/2021 3:09 Supervision Of Results for LEVEL ROBERTSON AND (most inpatients PM CDT Other High Risk t his procedure TRANSVAGINAL and all Pregnancies are in the outpatients) Unspecified results Trimester (HCC) section. from Last 3 Months Results US OB Advanced Level Robertson and [...] LEVEL SINGLETO N AND TRANSVAGINAL Exam Site: [facility] OB #2 Plurality: 1 OBHx: [G:(2)] ?F Trm:() Pre:() C-Sec:() Ab-I:( ) Ab-S:() Ect:() Multi:() Yulisa:() INDICATIONS FOR SONOGRAPHY Detailed Survey MEASUREMENTS ??george ??wks [+/-] (Beau ramirez) % ?? BPD: 4.93 cm ?? 20w6d [...] x 3.3cm Preliminary Read by Cookie Rosa R.D.M.STelma on 09/19/2021 3:09:13 PM. Bmet: ??Cookie Rosa R.D. M.S. Thank You For This Referral Procedure Note Rodolfo Woodruff M.B.B.S., M.D. - 09/19 NICK BARAJAS OB Exam, 09/19/2021 EXAM INFORMATION Patient Name: NICK BARAJAS : 1985 Age: 35 yrs Sex: Female Ref Phys: JESSE OSEI Exam Date: 09/19/2021 Procedure: US OB ADVANCED LEVEL SINGLETO N AND TRANSVAGINAL Exam Site: [facility] OB #2 Plurality: 1 OBHx: [G:(2)] F [...] x 3.3cm Preliminary Read by Cookie Rosa R.D.M.STelma on 09/19/2021 3:09:13 PM. Bmet: Cookie Rosa R.D.MTelma STelma Thank You For This Referral Jesse SHI OB US PROCEDURES from Last 3 Months Insurance Payer Benefit Plan Subscriber ID Effective Phone Address Typ e / Group Dates [facility] [id number] 2018-Pres [phone] [address] [id number] PPO PLUS ent [address] [place] [address] Guarantor Name Account Type Relation to Date of Phone Billing Patient Address Nick Barajas Personal/Family Self 1985 [phone] [address] [facility] (Home) [place] [address] Advance Directives For more information, please contact: [phone] Latest Code Status on File Code Status Date Activated Date Inactivated Comments Full Code 02/02/2019 10:57 PM 02/03/2019 7:17 PM Full Code: Discussed Care Teams Director Of Preclinical Research Relationship Specialty Start Date End Date Elsewhere, Pcp PCP - General Family Medicine 02/03/19
--- OUTSIDE RECORDS SUMMARY | 2021-10-11 01:12 | XMS_ITS | Encounter Summary ---
:1985 Author Organization [facility] Address [address] [place] [address] Care Team Providers Name Role Phone Unavailable Primary Care Provider Unavailable Encounter Details Date Type Department Care Team Description 04/23/2014 Hospital Encounter HX [facility] Ramy Gaston M .D. Social History Tobacco Use Types Packs/Day Years [...] 09/19/2021 relatives? How often do you attend anabaptist or moravian services? Never 09/19/2021 Do you belong to any clubs or organizations such as No 09/19/2021 anabaptist groups, unions, fraternal or athletic groups, or [...] place to sleep or slept in a longterm (including now)? Sex Assigned at Date Recorded Female 09/19/2021 11:18 AM CDT documented as of this encounter Progress Notes Ramy Ospina M.D. - 04/23/2014 9:56 AM CST [id number] CHIEF COMPLAINT/REASON FOR VISIT Abdominal pain, nausea, vomiting. HISTORY OF PRESENT ILLNESS This patient is a 28-year-old , female with LMP of 04/05/2014, who presents for an acute visit in clinic. She complains of acute onset of left side abdominal pain with nausea and vomiting. We are unable to obtain vital signs on the patient due to her emesis. The patient reports she is in severe pain. IMPRESSION/REPORT/PLAN The patient was not examined in clinic and she was taken down to the emergency room for evaluation and management of her acute pain, nausea and vomiting with IV fluids, ultrasound and other measures. The patient was not examined in clinic before going down to the emergency room. Ramy Ospina M.D./oma Electronically Signed By: RAMY OSPINA MD On: 04/23/2014 11:23 AM Source: [facility] MHSDOLBEYNONRADSYS Document Id: [id number] ER MECHANIC documented in this encounter Miscellaneous Notes Miscellaneous - Ramy Ospina M.D. - 04/23/2014 10:25 AM CST Ambulatory Patient Summary [facility] [address] [place] [id number] Visit Information Name: NICK BARAJAS [facility] Number: [id number] Current Date: 04/23/2014 10:25:14 Physicians Attending Provider: RAMY OSPINA MD Primary Care Provider: PCP, UNASSIGNED - NICK PERSAUD has been given the following list of follow-up instructions, medication list, and patient education materials: Follow-up Instructions Your Medications Here is a list of your medications. It is important to take your medications as directed. Use a pillbox or chart to help remind you to take your medications. Please let your doctor or nurse know if you have problems taking your medications. Medication/Strength How to Take Indications/Special Instructions/Comments/Notes for Patient Medication Changes/Routing No Medications found Stop Taking the Following Medications: Medication list as of 04-23-14 10:25 Attention: If you have any medications at home that are not on this list, DO NOT take them until youcontact your provider for clarification. Give a copy of your medication list to your primary care provider. Update your medication list any time medications or doses are changed and carry your medication list at all times in case of emergency. Electronically Signed By: RAMY OSPINA MD Signed On:23-APR-2014 10:25:12 Your Allergies & Intolerances Substance Reaction Symptoms Category Comments No Known Allergies Drug Your Problem List Problem Status Onset Comments Cyst Ovary Active Your Upcoming Appointments Date Time Location Provider No Appointments found Attention: Contact your local Clinic if further appointment detail needed. Your Goals/Additional instructions: Source: [facility] POWERCHART Document Id: [id number] ER MECHANIC Miscellaneous - Ramy Ospina M.D. - 04/23/2014 10:25 AM CST Ambulatory Discharge Medication List [address] [id number] Visit Information Name: NICK BARAJAS [facility] Number: [id number] Visit Date: 04/23/2014 10:25:13 Attending Provider: RAMY OSPINA MD Primary Care Provider: PCP, UNASSIGNED - FB BARAJASNICK URENA has been given the following list of medications: Your Medications It is important to take your medications as directed. Use a pill box or chart to help remind you to take your medications. Please let your doctor or nurse know if you have problems taking your medications. Medication/Strength How to Take Indications/Special Instructions/Comments/Notes for Patient Medication Changes/Routing No Medications found Stop Taking the Following Medications: Medication list as of 04-23-14 10:25 Attention: If you have any medications at home that are not on this list, DO NOT take them until youcontact your provider for clarification. Give a copy of your medication list to your primary care provider. Update your medication list any time medications or doses are changed and carry your medication list at all times in case of emergency. Electronically Signed By: RAMY OSPINA MD Signed On:23-APR-2014 10:25:12 Additional Information: Source: [facility] POWERCHART Document Id: [id number] ER MECHANIC documented in this encounter Plan of Treatment Not on filedocumented as of this encounter Visit Diagnoses Not on filedocumented in this encounter
--- OUTSIDE RECORDS SUMMARY | 2021-10-11 01:12 | XMS_ITS | Encounter Summary ---
:1985 Author Organization [facility] Address [address] [place] [address] Care Team Providers Name Role Phone Unavailable [...] 09/19/2021 relatives? How often do you attend pentecostalism or hoahaoism services? Never 09/19/2021 Do you belong to any clubs or organizations such as No 09/19/2021 pentecostalism groups, unions, fraternal or athletic groups, or [...] place to sleep or slept in a nursing home (including now)? Sex Assigned at Date Recorded Female 09/19/2021 11:18 AM CDT documented as of this encounter Last Filed Vital Signs Vital Sign Reading Time Taken Comments Blood Pressure 100/62 04/23/2014 2:23 PM GRASS CUTTER Pulse 76 04/23/2014 2:23 PM GRASS CUTTER Temperature - - Respiratory Rate - - Oxygen Saturation - - Inhaled Oxygen Concentration - - Weight 67.2 kg (148 lb 2.4 oz) 04/23/2014 2:23 PM GRASS CUTTER Height - - Body Mass Index - - documented in this encounter Progress Notes Ramy Ospina M.D. - 04/23/2014 2:18 PM CST [id number] CHIEF COMPLAINT/REASON FOR VISIT Ovarian cyst, emergency room followup. HISTORY OF PRESENT ILLNESS This patient is a 28-year-old G0, P0, female with LMP of 04/05/2014. The patient presents for emergency room followup. She was seen in the emergency room this morning. She had acute onset of left-sidedpelvic pain 2 weeks ago which caused her to present to the emergency room with sharp stabbing pain in the left lower quadrant and left pelvis. The pain resolved in the emergency room with IV fluids andIV pain medications. She was found to have a large pelvic mass on the left side. The patient was seen in clinic last week without pain or discomfort. She requested conservative observation of the pelvic mass with a repeat ultrasound. This morning the patient woke up with acute onset of left-sided sharp stabbing pelvic pain in her left lower quadrant and left pelvis. The pain radiated down to her left leg. It is not relieved with oral pain medications, so the patient presented to the emergency room this morning. She was given IV fluids and IV pain medications with resolution of her pain. Her nausea and vomiting symptoms have resolved, now that her pain has resolved. The patient reports positive flatus without difficulty. She denies bowel movement today. She denies any difficulty urinating. No vaginal itching, irritation, or discharge. No vaginal bleeding. No fevers or chills. The patient presents to clinic after being seen in the emergency room this morning to discuss plan. She is interested in surgical evaluation and removal of this pelvic mass, which she believes is causing her sharp pain. The patient feels normal now. She has no further pain, cramping, tenderness, or discomfort after being seen in the emergency room this morning. Since being discharged from the emergency room earlier today, she reports no difficulty eating, no further nausea or vomiting, no difficulty with flatus, no difficulty with urination. She has some diffuse tenderness in the left lower quadrant, but no further sharp stabbing pain. ALLERGIES No known drug allergies. MEDICATIONS 1. Percocet pain medication. 2. Tramadol pain medication. PAST MEDICAL/SURGICAL HISTORY PAST MEDICAL HISTORY: None. PAST SURGICAL HISTORY: None. PAST OBSTETRICAL HISTORY: None. SOCIAL HISTORY Patient is . No tobacco, alcohol or drug use. No history of STD or PID. She has never had a Pap smear. FAMILY HISTORY Mother with hypertension. No diabetes, breast cancer, colon cancer or ovarian cancer. ADULT PREVENTIVE SERVICES Unknown. VITAL SIGNS Weight 67.2 kg, pulse 76, blood pressure 100/62, respirations 18. PHYSICAL EXAMINATION GENERAL: Well-developed, well-nourished female, in no apparent distress. Alert and oriented x3. LUNGS: Clear to auscultation bilaterally. Good inspiratory effort. HEART: Regular rate and rhythm without murmur. ABDOMEN: Soft, nontender, nondistended. Positive bowel sounds. No hepatosplenomegaly. No rebound. Noguarding. EXTREMITIES: No clubbing, cyanosis, or edema. Nontender bilaterally. GENITALIA: Normal external female genitalia. Normal BUS. Normal vaginal rugae without lesions. Normal nulliparous cervical os without lesions. No cervical motion tenderness. Uterus is anteflexed, mobile, nontender. Right adnexal without masses or tenderness. In the left adnexa, there is a large pelvicmass that is not mobile and is not tender to palpation. RECTAL: Exam declined by patient. DIAGNOSTICS LABORATORY: 04/09/2014: Creatinine 0.81. test negative. White blood cell count 5.2, hemoglobin 13.5, hematocrit 41.1, platelets 218. 04/23/2014: Creatinine 0.79, ALT 14, AST 21. test negative. Amylase 116, lipase 20. White blood cell count 6.8, hemoglobin 14.1, hematocrit 42.8, platelets 220. Urinalysis negative. CA-125 pending. RADIOLOGY: 04/09/2014: Pelvic ultrasound shows anteflexed uterus is 7.3 x 5.5 x 2.9 cm without myometrial masses. Endometrial stripe is 4 mm. No fluid in the endometrial cavity. Right ovary measures 4.3 x 3.9 cm and appeared normal with good blood flow. Left ovary measures 4.6 x 4.4 cm and appears normal with good blood flow. Adjacent to left ovary is a hypoechoic anomaly, measuring 6.6 x 5.7 cm, consistent with hemorrhagic cyst. Also adjacent to left ovary is a multicystic hypoechoic anomaly, measured 10.8 x 9.2 x 6.5 cm with multiple septum. This may be adjacent to the ovary or part of the left ovary. There is no free fluid noted. 04/23/2014: Pelvic ultrasound shows a normal-appearing uterus with normal myometrium. No masses. Endometrium shows endometrial thickness of 13 mm. No endometrial mass or fluid. Right ovary measured 3.5x 4.1 x 2.1 cm without adnexal masses. Good blood flow. Left ovary measures 5.4 x 4.4 x 1.9 cm with g ood blood flow. There is a large mixed cystic and solid mass of the left adnexa, measuring up to 14 cm in size. No free fluid is noted. IMPRESSION/REPORT/PLAN 1. Large left adnexal complex cystic mass, multiseptated. 2. Episode of acute abdominal pain, now resolved. PLAN: 1. CA-125 value is drawn today in the emergency room. And this result is pending. 2. I discussed management options with the patient. The large multicystic complex adnexal mass in the left adnexa has increased in size from 11 cm up to 14 cm. There is good blood flow going in and outof the adnexal mass. There is no evidence of a torsion. 3. I reviewed differential diagnosis with the patient. I reviewed with the patient that this may be ovarian in nature. I discussed the possibility of a gastrointestinal or colon source. I discussed with the patient the possibility of a pedunculated fibroid. I discussed the possibility of an endometrioma or dermoid cyst. I reviewed the small possibility of ovarian carcinoma. CA-125 value is drawn today and the result is pending. 4. Due to the large size of the left pelvic mass and the prominent nature and the patient's acute abdominal pain that redeveloped, I recommend surgical evaluation. I recommend laparoscopic evaluation with possible laparotomy, with ovarian cystectomy versus oophorectomy, with excision of this pelvic mass. I discussed the possibility of laparotomy. The patient thought about her options and would like to proceed forward with surgery. 5. The patient would like to have surgery in 2 weeks due to family situation and the need to apply for medical insurance. 6. I am going to have the patient talk with our business office for any assistance that they can offer in applying for medical insurance. 7. I would like the patient to follow back up next week for evaluation in the clinic and preoperative examination, or be seen sooner as needed. 8. The patient will follow up immediately if she has any return of sharp pelvic pain. 9. I did discuss with the patient the possibility of checking an MRI to further evaluate the nature of this pelvic adnexal mass, and the patient declines due to cost. I feel proceeding forward with surgery is reasonable at this time. 10. I discussed with the patient about having her do surgery next week instead of waiting for 2 weeks, but she would prefer to wait for 2 weeks due to family situation and cost. 11. The patient is comfortable. Her pain symptoms have resolved. 12. I have contacted [facility] and scheduled patient for laparoscopy with possible laparotomy with possible ovarian cystectomy versus oophorectomy, as well as excision of mass on 05/06/2014. 13. Pain precautions reviewed with the patient. 14. I would like the patient to see [employer] for assistance in applying for medical insurance. 15. I spent 30 minutes [id number] time with the patient, with over 50% of that time spent in counseling. Ramy Ospina M.D./oma Electronically Signed By: RAMY OSPINA MD On: 04/26/2014 08:16 AM Source: [facility] MHSDOLBEYNONRADSYS Document Id: [id number] S CUTTER documented in this encounter Miscellaneous Notes Miscellaneous - Ramy Ospina M.D. - 04/23/2014 2:58 PM CST Ambulatory Patient Summary [address] [id number] Visit Information Name: NICK BARAJAS [facility] Number: [id number] Current Date: 04/23/2014 14:58:01 Physicians Attending Provider: RAMY OSPINA MD Primary Care Provider: PCP, BRONWYNSSIGNED - FB BARAJASNICK URENA has been given [...] Following Medications: Medication list as of 04-23-14 14:58 Attention: If you have any medications at home that are not on this list, DO NOT take them until youcontact your provider for clarification. Give a copy of your medication list to your primary care provider. Update your medication list any time medications or doses are changed and carry your medication list at all times in case of emergency. Electronically Signed By: RMAY OSPINA MD Signed On:23-APR-2014 14:57:59 Your Allergies & Intolerances Substance Reaction Symptoms Category Comments No Known Allergies Drug Your Problem List Problem Status Onset Comments Cyst Ovary Active Your Upcoming Appointments Date Time Location Provider 05/03/2014 09:30 [facility] LAB SUPPORT SERVICE TECH Ramy Ospina MD Attention: Contact your local Clinic if further appointment detail needed. Your Goals/Additional instructions: Source: [facility] POWERCHART Document Id: [id number] S CUTTER Miscellaneous - Ramy Ospina M.D. - 04/23/2014 2:58 PM CST Ambulatory Discharge Medication List [address] [id number] Visit Information Name: NICK BARAJAS [facility] Number: [id number] Visit Date: 04/23/2014 14:58:01 Attending Provider: RAMY OSPINA MD Primary Care Provider: PCP, BRONWYNSSUSHA - YURIDIA BARAJAS NICK has been given the following list of [...] Following Medications: Medication list as of 04-23-14 14:58 Attention: If you have any medications at [...] Signed By: RAMY OSPINA MD Signed On:23-APR-2014 14:57:59 Additional Information: Source: [facility] POWERCHART Document Id: [id number] S CUTTER Miscellaneous - Isacc Wisdom, L.P.N. - 04/23/2014 2:23 PM CST Adult Wine And Spirits Clerk Intake/History Adult Wine And Spirits Clerk Intake/History Entered On: 04/23/2014 14:25 GRASS CUTTER Performed On: 04/23/2014 14:23 GRASS CUTTER by ISACC WISDOM LPN Intake Chief Complaint : ER follow up LMP Date : 04/05/14 Peripheral Pulse Rate : 76 /min Systolic Blood Pressure : 100 mmHg Diastolic Blood Pressure : 62 mmHg NIBP Mean : 75 mmHg BP Location : Left upper extremity Blood Pressure Cuff Size : Regular Actual Weight : 67.2 kg(Converted to: 148 lb 2 oz) Weight Source : Standing scale Dosing Weight Clinic : 67.2 kg ISACC WISDOM LPN - 04/23/2014 14:23 GRASS CUTTER General Info Information Given By : Patient Languages : Yakut Is Patient Female and 13-50 no hysterectomy : Yes Status : Patient denies Are you ? : No ISACC WISDOM LPN - 04/23/2014 14:23 GRASS CUTTER Subjective Pain Symptoms : No ISACC WISDOM LPN - 04/23/2014 14:23 GRASS CUTTER Dependent Habits Tobacco Use/Currently Using : No Exposure to Tobacco Smoke : Other: Never Smoking Status : Never smoker ISACC WISDOM LPN - 04/23/2014 14:23 GRASS CUTTER ID Screen Drug Resistant Organism : No Travel Within Last 21 Days : No ISACC WISDOM LPN - 04/23/2014 14:23 GRASS CUTTER Source: [facility] [employer] Document Id: [id number] GRASS CUTTER!28 S CUTTER documented in this encounter Plan of Treatment Not on filedocumented as of this encounter Visit Diagnoses Not on filedocumented in this encounter
--- OUTSIDE RECORDS SUMMARY | 2021-10-11 01:12 | XMS_ITS | Encounter Summary ---
:1985 Author Organization [facility] Address [address] [place] [address] Care Team Providers Name Role Phone Unavailable Primary Care Provider Unavailable Encounter Details Date Type Department Care Team Description 05/17/2014 - 05/27/2014 Hospital Encounter HX NO MAPPING Social History [...] 09/19/2021 relatives? How often do you attend jewish or sikhism services? Never 09/19/2021 Do you belong to any clubs or organizations such as No 09/19/2021 jewish groups, unions, fraternal or athletic groups, or [...]
--- OUTSIDE RECORDS SUMMARY | 2021-10-11 01:12 | XMS_ITS | Encounter Summary ---
:1985 Author Organization [facility] Address [address] [place] [address] Care Team Providers Name Role Phone Unavailable Primary Care Provider Unavailable Encounter Details Date Type Department Care Team Description 04/14/2014 Hospital Encounter HX [facility] Ramy Gaston [...] How often do you attend jewish or church services? Never 09/19/2021 Do you belong to [...] place to sleep or slept in a care home (including now)? Sex Assigned at Date Recorded Female 09/19/2021 11:18 AM CDT documented as of this encounter Last Filed Vital Signs Vital Sign Reading Time Taken Comments Blood Pressure 104/74 04/14/2014 2:57 PM GEOPHYSICS TEACHER Pulse 74 04/14/2014 2:57 PM GEOPHYSICS TEACHER Temperature - - Respiratory Rate - - Oxygen Saturation - - Inhaled Oxygen Concentration - - Weight 67.5 kg (148 lb 13 oz) 04/14/2014 2:57 PM GEOPHYSICS TEACHER Height - - Body Mass Index - - documented in this encounter Progress Notes Ramy Ospina M.D. - 04/14/2014 2:53 PM CST [id number] CHIEF COMPLAINT/REASON FOR VISIT Ovarian cyst. HISTORY OF PRESENT ILLNESS This patient presents for TEACHING ASSISTANT consult from Dr. Rivera of [facility]. This is her first visit to [facility]. She is a 28-year-old G0, P0, female with LMP of 04/05/2014. The patient presents for TEACHING ASSISTANT consult from Dr. Rivera. She was seen in the emergency room last week with abdominal pain. The patient reports regular menses once a month that last for 5 to 6 days. She denies menorrhagia or intermenstrual bleeding. No dysmenorrhea. No dyspareunia or postcoital spotting. No vaginal itching, irritation or discharge. The patient reports acute onset of left side and left pelvic pain on 04/09/2014. She started having the left-sided pelvic pain during a bowel movement and lasted for approximately 2 to 3 hours. This was sharp and stabbing in the left lower quadrant and left pelvis. She reports the pain radiated down to her left leg. The patient reports that the pain did not improve so she went to the emergency room and with intravenous fluids and medication, the pain resolved. The patient reports that she has had nofurther left-sided or pelvic pain or discomfort since she left the emergency room on 04/09/2014. Shehas had no further pain or discomfort with bowel movement. She denies any change in bowel habits. No constipation or diarrhea. No nausea or vomiting. No difficulty urinating. No dysuria, hematuria or flank pain. In the emergency room, the patient was found to have an ovarian cyst. It was suspected to be a hemorrhagic cyst and then she also had a multi-cystic pelvic mass with septations. There is no signs of infection. The patient was discharged home, much improved. The patient now presents for TEACHING ASSISTANT consult. She reports that she has had no further pain, cramping, tenderness or discomfort. No difficulty eating. No change in bowel habits. No further pain with defecation. No bright red blood per rectum or melena. No fevers or chills. ALLERGIES No known drug allergies. MEDICATIONS None. PAST MEDICAL/SURGICAL HISTORY PAST MEDICAL HISTORY: None. PAST SURGICAL HISTORY: None. PAST OBSTETRICAL HISTORY: None. SOCIAL HISTORY Patient is . She denies tobacco, alcohol or drug use. She denies history of STD or PID. She reports she has never had a Pap smear. FAMILY HISTORY Mother with hypertension. No diabetes. No breast cancer, colon cancer or ovarian cancer. ADULT PREVENTIVE SERVICES Unknown. VITAL SIGNS Weight 67.5 kg. Pulse 74. Blood pressure 104/74. Respirations 18. PHYSICAL EXAMINATION GENERAL: Well-developed, well-nourished female, in no apparent distress. Alert and oriented x3. LUNGS: Clear to auscultation bilaterally with good inspiratory effort. HEART: Regular rate and rhythm without murmur. ABDOMEN: Soft, nontender, nondistended. Positive bowel sounds. No hepatomegaly. No rebound. No guarding. EXTREMITIES: No clubbing, cyanosis or edema. Nontender bilaterally. GENITOURINARY: Normal external female genitalia. Normal BUS. Normal vaginal rugae without lesions. Normal nulliparous cervical os without lesions. No cervical motion tenderness. Bimanual exam normal size uterus anteflexed, mobile and nontender. Right adnexa no masses or tenderness. Left adnexa there is a normal ovary that is palpated without tenderness. Adjacent to the ovary there is a large 6 to 8 cm pelvic mass that is not mobile and tender to examination. RECTAL: Declined by patient. DIAGNOSTICS LABORATORY: 04/09/2014: Creatinine 0.81. test negative. White blood cell count 5.2, hemoglobin 13.5, hematocrit 41.1, platelets 218. RADIOLOGY: 04/09/2014: Pelvic ultrasound shows an anteflexed uterus that is 7.3 x 5.5 x 2.9 cm without myometrial masses. Endometrial stripe is 4 mm. No fluid in the endometrial cavity. Right ovary measures 4.3 x 3.9 cm and appears normal with good blood flow. Left ovary measures 4.6 x 4.4 cm and appears normal with good blood flow. Adjacent to the left ovary is a hypoechoic anomaly measuring 6.6 x 5.7 cm. It is consistent with a hemorrhagic cyst. Also adjacent to the left ovary is a multi-cystic hypoechoic anomaly measuring 10.8 x 9.2 x 6.5 cm with multiple septum. This may be adjacent to the ovary or part of the left ovary no free fluid is noted. IMPRESSION/REPORT/PLAN 1. Suspected a 6.6 cm hemorrhagic left ovarian cyst. 2. There is a large 10.8 x 9.2 cm multi septated left pelvic mass of unknown etiology. PLAN: 1. The patient's abdominal pelvic pain symptoms have resolved. She is having no further pain or discomfort. She has no difficulty with bowel movement or pain with defecation. No bleeding or bright red blood per rectum. No fevers or chills or signs of infection. 2. I reviewed the patient's ultrasound findings and physical examination findings showing a large left-sided pelvic adnexal mass. On ultrasound it has multiple septations. I reviewed the abnormality ofthis with the patient. 3. I discussed differential diagnosis with the patient. This may be ovarian in nature. There is a possibility it could be gastrointestinal or colon in nature. There is also a possibility that this could be from the uterus, possibly a pedunculated fibroid. I discussed the possibility of endometrioma aswell as dermoid cyst. I reviewed with the patient the small possibility of a carcinoma. 4. I discussed management options with the patient. Due to the large size of the left pelvic mass and the prominent nature of this on examination, I recommend surgical evaluation. I discussed laparoscopic, possible laparotomy evaluation, possible operative procedures. I reviewed the risks, benefits, alternatives and indication of this with the patient. The patient declined surgical evaluation at thistime. 5. I discussed the option of checking tumor markers including CA-125, CEA and alpha fetoprotein. Thepatient is undecided. 6. I discussed the option of checking an MRI to further evaluate the nature of this pelvic adnexal mass. The patient is undecided. 7. The patient reports that she does not have insurance. I am sending the patient to our business office for assistance, as well as to social service worker to help apply for medical insurance. 8. I discussed options with the patient and she would like conservative observation as she feels fine and her symptoms have resolved. I reviewed with the patient that I suspect that this large pelvic mass has been present for some time and has been slowly growing. It is not an acute process. I discussed my concerns and reservations with this with the patient. The patient desires conservative observation. In that situation, I discussed having the patient come back in for repeat pelvic ultrasound in 4to 6 weeks or sooner if she re-develops symptoms. 9. If the patient re-develops pain symptoms or problems with bowel movements, she should follow up immediately for evaluation at which point I strongly would recommend surgical evaluation. If on the next ultrasound this pelvic mass is still present or enlarged I would strongly recommend proceeding with laparoscopic and surgical evaluation. 10. Pain precautions are reviewed with patient. 11. I did discuss with the patient my concerns for this pelvic mass and the fact that this may be a malignancy. She again declines to do tumor markers, MRI or surgical evaluation at this time. 12. All the patient's questions are answered. 13. I would like the patient to see social service worker, too for assistance, as mentioned above. 14. I spent 30 minutes [id number] time with patient with over 50% of that time spent in counseling. Ramy Ospina M.D./oma Electronically Signed By: RAMY OSPINA MD On: 04/15/2014 10:41 AM Source: [facility]SDOLBEYNON[facility] Document Id: [id number] HYSICS TEACHER documented in this encounter Miscellaneous Notes Miscellaneous - Ramy Ospina M.D. - 04/14/2014 5:38 PM CST Ambulatory Discharge Medication List [address] [id number] Visit Information Name: NICK BARAJAS [facility] Number: [id number] Visit Date: 04/14/2014 17:38:33 Attending Provider: RAMY OSPINA MD Primary Care [...] the Following Medications: Medication list as of 04-14-14 17:38 Attention: If you have any medications at [...] Electronically Signed By: RAMY OSPINA MD Signed On:14-APR-2014 17:38:32 Additional Information: Source: [facility] POWER[facility] Document Id: [id number] HYSICS TEACHER Miscellaneous - Ramy Ospina M.D. - 04/14/2014 5:38 PM CST Ambulatory Patient Summary [address] [id number] Visit Information Name: NICK BARAJAS [facility] Number: [id number] Current Date: 04/14/2014 17:38:34 Physicians Attending Provider: RAMY OSPINA MD Primary Care Provider: PCP, UNASSIGNED - FB NICK BARAJAS has been given the following list of [...] the Following Medications: Medication list as of 04-14-14 17:38 Attention: If you have any medications at [...] Electronically Signed By: RAMY OSPINA MD Signed On:14-APR-2014 17:38:32 Your Allergies & Intolerances Substance Reaction Symptoms Category Comments No Known Allergies Drug Your Problem List Problem Status Onset Comments Cyst Ovary Active Your Upcoming Appointments Date Time Location Provider No Appointments found Attention: Contact your local Clinic if further appointment detail needed. Your Goals/Additional instructions: Source: [facility] Document Id: [id number] HYSICS TEACHER Miscellaneous - Isacc Wisdom L.P.N. - 04/14/2014 2:57 PM CST Adult Uptwist Spinner Intake/History Adult Uptwist Spinner Intake/History Entered On: 04/14/2014 15:00 GEOPHYSICS TEACHER Performed On: 04/14/2014 14:57 GEOPHYSICS TEACHER by ISACC WISDOM LPN Intake Chief Complaint : Consult- ovarian cysts Peripheral Pulse Rate : 74 /min Systolic Blood Pressure : 104 mmHg Diastolic Blood Pressure : 74 mmHg NIBP Mean : 84 mmHg BP Location : Left upper extremity Blood Pressure Cuff Size : Regular Actual Weight : 67.5 kg(Converted to: 148 lb 13 oz) Weight Source : Standing scale Dosing Weight Clinic : 67.5 kg ISACC WISDOM LPN - 04/14/2014 14:57 GEOPHYSICS TEACHER General Info Information Given By : Patient Languages : Bangladeshi Is Patient Female and 13-50 no hysterectomy : Yes Status : Patient denies Are you ? : No ISACC WISDOM LPN - 04/14/2014 14:57 GEOPHYSICS TEACHER Subjective Pain Symptoms : No ISACC WISDOM LPN - 04/14/2014 14:57 GEOPHYSICS TEACHER Dependent Habits Tobacco Use/Currently Using : No Exposure to Tobacco Smoke : Other: Never Smoking Status : Never smoker ISACC WISDOM LPN - 04/14/2014 14:57 GEOPHYSICS TEACHER ID Screen Drug Resistant Organism : No Travel Within Last 21 Days : No ISACC WISDOM LPN - 04/14/2014 14:57 GEOPHYSICS TEACHER Source: [facility] Document Id: [id number] GEOPHYSICS TEACHER!27 HYSICS TEACHER documented in this encounter Plan of Treatment Not on filedocumented as of this encounter Visit Diagnoses Not on filedocumented in this encounter
--- OUTSIDE RECORDS SUMMARY | 2021-10-11 01:12 | XMS_ITS | Encounter Summary ---
:1985 Author Organization [facility] Address [address] [place] [address] Care Team Providers Name Role Phone Unavailable Primary Care Provider Unavailable Encounter Details Date Type Department Care Team Description 05/03/2014 Hospital Encounter HX [facility] Ramy Gaston [...] 09/19/2021 relatives? How often do you attend gnosticist or gnosticism services? Never 09/19/2021 Do you belong to any clubs or organizations such as No 09/19/2021 gnosticist groups, unions, fraternal or athletic groups, or [...] place to sleep or slept in a custodial (including now)? Sex Assigned at Date Recorded Female 09/19/2021 11:18 AM CDT documented as of this encounter Last Filed Vital Signs Vital Sign Reading Time Taken Comments Blood Pressure 112/78 05/03/2014 9:26 AM CUSTOMER MARKETING ASSISTANT Pulse 72 05/03/2014 9:26 AM CUSTOMER MARKETING ASSISTANT Temperature - - Respiratory Rate - - Oxygen Saturation - - Inhaled Oxygen Concentration - - Weight 66.7 kg (147 lb 0.8 oz) 05/03/2014 9:26 AM CUSTOMER MARKETING ASSISTANT Height - - Body Mass Index - - documented in this encounter Progress Notes Ramy Patterson M.D. - 05/03/2014 9:19 AM CST [id number] CHIEF COMPLAINT/REASON FOR VISIT Pelvic mass. HISTORY OF PRESENT ILLNESS This patient is a 28-year-old G0, P0, female with LMP of 04/30/2014. The patient has a large left adnexal complex cystic mass that is multi septated. The patient presents for followup and to discuss management options. The patient had acute onset of left-sided pelvic pain on 04/09/2014. During a bowelmovement she had sharp stabbing pain in her left lower quadrant and left pelvis. She presented to the emergency room, was given IV medications and intravenous fluids. Her pain symptoms resolved. she was found to have a left-sided large pelvic mass. The patient requested conservative observation and repeat ultrasound. The patient then had a 2nd episode of acute pelvic pain with sharp stabbing pain in the left pelvis and left lower quadrant on 04/23/2014. The patient re-presented to the emergency roomwith nausea and sharp stabbing pain. She was given pain medications and intravenous fluids with improvement in her symptoms. The patient was having no difficulty with bowel movements. No pain with bowel movements. No difficulty urinating. No signs of infection. The patient had a another ultrasound performed again showing a large left adnexal complex multi septated cystic mass. The patient is interested in surgical evaluation and removal. The patient believes that this pelvic mass is causing her pelvic pain. The patient presents for follow up. She reports that her pain has resolved. She had no abdominal pain, cramping, tenderness, or discomfort. No difficulty urinating. No dysuria, hematuria or flank pain.No change in bowel habits. No constipation. No pain with defecation. No diarrhea. No fevers or chills. No vaginal itching, irritation, discharge. She did start her menses 2 days ago and is having normal blood flow without menorrhagia. ALLERGIES No known drug allergies. MEDICATIONS Tramadol pain medication as needed. PAST MEDICAL/SURGICAL HISTORY PAST MEDICAL: Large left adnexal mass. PAST SURGICAL HISTORY: None. PAST OBSTETRICAL HISTORY: None. SOCIAL HISTORY Patient is . No tobacco, alcohol or drug use. No history of STD or PID. She has never had a Pap smear. FAMILY HISTORY Mother with hypertension. No diabetes breast cancer, colon cancer or ovarian cancer. ADULT PREVENTIVE SERVICES Unknown. VITAL SIGNS Weight 66.7 kg, pulse 72, respiration 18, blood pressure 112/78. PHYSICAL EXAMINATION GENERAL: Well-developed, well-nourished female, in no apparent distress. Alert and oriented x3. LUNGS: Clear to auscultation bilaterally. Good inspiratory effort. HEART: Regular rate and rhythm without murmur. ABDOMEN: Soft, nontender, nondistended. Positive bowel sounds. No hepatomegaly. No rebound. No guarding. EXTREMITIES: No clubbing, cyanosis, or edema. Nontender bilaterally. GENITALIA: Exam deferred as on menses. Prior examination showed normal external female genitalia with normal BUS. Nulliparous cervical os without lesions. No cervical motion tenderness. Uterus was anteflexed, mobile, nontender. Right adnexa without masses or tenderness, in the left adnexa there is a large palpable mass that is not mobile but was not tender to palpation. RECTAL: Was declined by patient. DIAGNOSTICS 04/23/2014 creatinine 0.79, ALT 14, AST 21, test negative. Amylase 116, lipase 20. White blood cell count 6.8, hemoglobin 14.1, hematocrit 42.8, platelets 220. Urinalysis negative. CA-125 41.3, elevated. 04/23/2014 pelvic ultrasound shows a normal appearing uterus with normal myometrium. No masses. Endometrium shows endometrial thickness of 13 mm. No endometrial mass or fluid. Right ovary measured 3.5 x 4.1 x 2.1 cm without adnexal masses. Good blood flow to the right ovary. Left ovary measures 5.4 x 4 .4 x 1.9 cm with good blood flow. There is a large mixed cystic and solid mass in the left adnexum measuring 14 cm in size. No free fluid is noted. IMPRESSION/REPORT/PLAN 1. Symptomatic large left adnexal complex multi septated cystic mass. 2. Elevated CA-125 level. 3. Episode of acute abdominal pain, now resolved and asymptomatic. PLAN: 1. Reviewed CA-125 value. Results the patient which is elevated at 41.3. I discussed with the patient her large multi-cystic complex adnexal mass and that is up to 14 cm in size. There is good blood flow in and out of both ovaries. There is no evidence of an ovarian torsion. The patient's pelvic pain symptoms have resolved and she is asymptomatic currently. 2. I discussed elevated CA-125 value in the setting of an adnexal multi-septated complex mass. I discussed with the patient possibility of ovarian carcinoma. I discussed possibility of a dermoid cyst. I discussed the possibility of endometrioma. 3. Due to the large size of the adnexal mass and elevated CA-125 value I recommend the patient be seen at a tertiary care center for further evaluation and management and possible surgery. 4. The patient and her are requesting a consult to [facility] to see a specialty clinic for evaluation and management. They would like to have surgery at [facility]. I feel this is very reasonable given her situation and the elevated CA-125 value. I discussed the possibility of laparoscopy with possible laparotomy. Instead of having this done at our [facility] the patient would like to go to [facility] which I feel it is very reasonable. 5. I have placed a consult to [facility] for evaluation and management including surgical evaluation and management. They will contact the patient in the next few days to set this up. 6. Precautions are reviewed patient. 7. Bleeding and pain precautions reviewed with the patient. 8. We will not proceed with surgery at our facility. I recommend the patient be seen and evaluated at tertiary care center, with strong consideration of surgery at their facility. The patient agrees tothis course of action. Ramy Patterson M.D./oma Electronically Signed By: RAMY PATTERSON MD On: 05/03/2014 02:34 PM Source: [facility] MHSDOLBEYNONRADSYS Document Id: [id number] OMER MARKETING ASSISTANT documented in this encounter Miscellaneous Notes Telephone Encounter - Conversion, Historical Provider Ser - 05/11/2014 10:19 AM CDT *Phone Message/dr patterson Document Contains Addenda Addendum by CAROLINE WISDOM LPN on 12 May 2014 08:40:05 CDT Referral placed. Addendum by RAMY PATTERSON MD on 12 May 2014 08:30:51 CDT From: RAMY PATTERSON MD To: Obstetrics/Gynecology Nurse; Sent: 05/12/2014 08:30:51 CDT Subject: RE: *Phone Message/dr patterson I spoke with the patient. She is requesting another consult to [facility]. Her prior consult was closed due to insurance reasons and now she has insurance and wants to be seen in [place]. Consult placed. Addendum by RAMY PATTERSON MD on 12 May 2014 07:53:58 CDT From: RAMY PATTERSON MD To: Obstetrics/Gynecology Nurse; Sent: 05/12/2014 07:53:58 CDT Subject: RE: *Phone Message/dr patterson No answer at listed number. voice mail left for patient Addendum by KALIA CHAVES on 11 May 2014 10:54:34 CDT From: KALIA CHAVES ( Obstetrics/Gynecology Nurse) To: RAMY PATTERSON MD; Sent: 05/11/2014 10:54:34 CDT Subject: FW: *Phone Message/dr patterson Looks like referral was originally closed due to insurance issue. Should we resubmit or what would you like to do? From: GREG WOOTEN ( [place] [facility]) To: Obstetrics/Gynecology Nurse; Sent: 05/11/2014 10:19:20 CDT Subject: *Phone Message/dr patterson Caller is: ( x ) Patient ( ) Mother ( ) Father ( ) Spouse ( ) Daughter ( ) Son ( ) Pharmacy ( ) Other: Physician: Patient N #: Reason for Call: S needs another referral sent to [facility] can call [phone] Message: Advice/Action: Source used: ( ) Verbalizes understanding of instructions ( ) Instructed to call back if symptoms worsen or do not resolve ( ) Refused to see provider ( ) Appointment Scheduled ( ) OK to leave message on voice mail ( ) Patient told to expect return call: ( ) today ( ) tomorrow ( ) next work day ( ) Patient's email ( ) Patient told physician out of office, will call upon return call on ( ) ( ) Patient told physician out of office, routed to other physician ( ) Other ( ) Call back telephone number ( ) Call back cell phone number ( ) Source: [facility] Delivered Document Id: [id number] Miscellaneous - Ramy Patterson M.D. - 05/03/2014 9:58 AM CST Ambulatory Patient Summary [address] [id number] Visit Information Name: NICK BARAJAS [facility] Number: [id number] Current Date: 05/03/2014 09:58:59 Physicians Attending Provider: RAMY PATTERSON MD Primary Care Provider: PCP, UNASSIGNED - [...] the Following Medications: Medication list as of 05-03-14 09:59 Attention: If you have any medications at home that are not on this list, DO NOT take them until youcontact your provider for clarification. Give a copy of your medication list to your primary care provider. Update your medication list any time medications or doses are changed and carry your medication list at all times in case of emergency. Electronically Signed By: RAMY PATTERSON MD Signed On:03-MAY-2014 09:58:56 Your Allergies & Intolerances Substance Reaction Symptoms Category Comments No Known Allergies Drug Your Problem List Problem Status Onset Comments Cyst Ovary Active Your Upcoming Appointments Date Time Location Provider No Appointments found Attention: Contact your local Clinic if further appointment detail needed. Your Goals/Additional instructions: Source: [facility] Delivered Document Id: [id number] Ramy Harris M.D. - 05/03/2014 9:58 AM CST Ambulatory Discharge Medication List [address] [id number] Visit Information Name: NICK BARAJAS [facility] Number: [id number] Visit Date: 05/03/2014 09:58:58 Attending Provider: RAMY PATTERSON MD Primary Care Provider: PCP, UNASSIGNED - [...] the Following Medications: Medication list as of 05-03-14 09:58 Attention: If you have any medications at home that are not on this list, DO NOT take them until youcontact your provider for clarification. Give a copy of your medication list to your primary care provider. Update your medication list any time medications or doses are changed and carry your medication list at all times in case of emergency. Electronically Signed By: RAMY PATTERSON MD Signed On:03-MAY-2014 09:58:56 Additional Information: Source: [facility] Document Id: [id number] [place] - Caroline Wisdom L.P.N. - 05/03/2014 9:26 AM CST Adult Machine Operator Hop Worker Intake/History Adult Machine Operator Hop Worker Intake/History Entered On: 05/03/2014 9:27 CUSTOMER MARKETING ASSISTANT Performed On: 05/03/2014 9:26 CUSTOMER MARKETING ASSISTANT by CAROLINE WISDOM LPN Intake Chief Complaint : Pre-op/consents LMP Date : 04/30/14 Peripheral Pulse Rate : 72 /min Systolic Blood Pressure : 112 mmHg Diastolic Blood Pressure : 78 mmHg NIBP Mean : 89 mmHg BP Location : Right upper extremity Blood Pressure Cuff Size : Regular Actual Weight : 66.7 kg(Converted to: 147 lb 1 oz) Weight Source : Standing scale Dosing Weight Clinic : 66.7 kg CAROLINE WISDOM LPN - 05/03/2014 9:26 CUSTOMER MARKETING ASSISTANT General Info Information Given By : Patient Languages : Korean Is Patient Female and 13-50 no hysterectomy : Yes Status : Patient denies Are you ? : No CAROLINE WISDOM LPN - 05/03/2014 9:26 CUSTOMER MARKETING ASSISTANT Subjective Pain Symptoms : No CAROLINE WISDOM LPN - 05/03/2014 9:26 CUSTOMER MARKETING ASSISTANT Dependent Habits Tobacco Use/Currently Using : No Exposure to Tobacco Smoke : Other: Never Smoking Status : Never smoker CAROLINE WISDOM LPN - 05/03/2014 9:26 CUSTOMER MARKETING ASSISTANT ID Screen Drug Resistant Organism : No Travel Within Last 21 Days : No Contact with someone with Ebola : No CAROLINE WISDOM LPN - 05/03/2014 9:26 CUSTOMER MARKETING ASSISTANT Source: [facility] POWERCHART Document Id: [id number] CUSTOMER MARKETING ASSISTANT!29 OMER MARKETING ASSISTANT documented in this encounter Plan of Treatment Not on filedocumented as of this encounter Visit Diagnoses Not on filedocumented in this encounter
== END 2021-10-04 08:07 | disposition home or self-care (01) ==
PROVIDERS: PCP Family Medicine; Visit Provider Obstetrics & Gynecology
DX: R73.09 Other abnormal glucose (principal)
CPT/HCPCS: 82951; 82952

== ENCOUNTER 2021-11-15 08:01 | Outpatient (CLI) | payer OTHER, SELFPAY ==
--- NOTE | 2021-11-15 08:15 | CRLHL7_ITS ---
For Patients: As a result of the Century Cures Act, medical imaging exams and procedure reports are released immediately into your electronic medical record. You may view this report before your referring provider. If you have questions, please contact your health care provider. INDICATION: Third trimester scan, evaluate growth. COMPARISON: Not available TECHNIQUE: Real time sierra scale imaging of the fetus was performed. FINDINGS: Sonographic imaging demonstrates a single living intrauterine gestation. Fetus demonstrates a regular cardiac rate of 139 beats per minute. Fetus has a wilder breech position. The placenta lies posteriorly. Amniotic fluid volume appears normal and there is a single deepest vertical pocket: 6.1 cm. The estimated weight is 1543gm which lies at the 96th %. BPD greater than 97th percentile. HC 94th percentile. AC greater than 97th percentile. FL 22nd percentile. The HC/AC ratio measures 1.04 range (0.97-1.18). Anterior left uterine fibroid measuring 5.7 x 2.3 x 4.4 cm. Smaller fibroid also present measuring 2.2 x 1.2 x 1.8 cm. IMPRESSION: Sonographic gestational age 30 weeks 3 days and sonographic due date of 01/21/2022. sonographic age is 15 days ahead of the clinical dates. Estimated weight 96th percentile. Abdominal circumference greater than 97th percentile. Uterine fibroids measuring up to 5.7 cm. Dictated by Aristides Snow MD @ 11/15/2021 10:45:28 AM (Electronically Signed)
== END 2021-11-15 08:02 | disposition home or self-care (01) ==
PROVIDERS: PCP Family Medicine; Visit Provider Obstetrics & Gynecology
DX: O24.419 Gestational diabetes mellitus in pregnancy, unspecified control (principal); O34.13 Maternal care for benign tumor of corpus uteri, third trimester; Z3A.30 30 weeks gestation of pregnancy
CPT/HCPCS: 76816; 86592

== ENCOUNTER 2021-12-13 07:20 | Outpatient (CLI) | payer OTHER, SELFPAY ==
--- NOTE | 2021-12-13 07:15 | CRLHL7_ITS ---
For Patients: As a result of the Century Cures Act, medical imaging exams and procedure reports are released immediately into your electronic medical record. You may view this report before your referring provider. If you have questions, please contact your health care provider. INDICATION: Third trimester scan, evaluate growth. Advanced maternal age COMPARISON: 11/15/2021 TECHNIQUE: Real time sierra scale imaging of the fetus was performed. FINDINGS: Sonographic imaging demonstrates a single living intrauterine gestation. Fetus demonstrates a regular cardiac rate of 132 beats per minute. Fetus has a vertex position. The placenta lies posteriorly. Amniotic fluid volume appears normal and there is a single deepest vertical pocket: 6.4 cm. The estimated weight is 2676gm which lies at the greater than 97th %. On the prior OB ultrasound exam dated 11/15/2021 the estimated weight was at the 96th%. BPD 97th percentile. HC 89th percentile. AC greater than 97th percentile. FL 44th percentile. The HC/AC ratio measures 0.96 range (0.93-1.11). IMPRESSION: Sonographic gestational age 35 weeks 0 days and sonographic due date 01/17/2022. Sonographic age 19 days ahead of the clinical age. Estimated weight greater than 97th percentile. Abdominal circumference greater than 97th percentile. Dictated by Aristides Snow MD @ 12/13/2021 9:21:14 AM (Electronically Signed)
--- OUTSIDE RECORDS SUMMARY | 2021-12-13 07:22 | XMS_ITS | Clinical Summary ---
:1985 Demographics Address [address] [facility] [place] [address] Home Phone Phone Preferred Language Danish Marital Status Unknown Baptism Affiliation Unknown Race Ethnic Group Not or Author Organization [facility] [place] [address] Care Team Providers Name Role Phone West Ospina MD Primary Care Provider Allergies No known active allergies Medications Medication Sig Dispensed Refills Start Date End Date Status fluticasone (50 mcg Inhale 1 [place] 1 Bottle 2 11/19/2016 Active per actuation) nasal into both nostrils solution once daily. (FLONASE)Indications: Sore throat Active Problems Not on file Social History Tobacco Use Types Packs/Day Years Used Date Never Smoker Smokeless Tobacco: Never Used Tobacco Cessation: Counseling Given: Yes Alcohol Use Standard Drinks/Week Comments Not Asked 0 (1 standard drink = 0.6 oz pure alcoho l) Sex Assigned at Date Recorded Not on file Obstetrics History Last Filed Vital Signs Vital Sign Reading Time Taken Comments Blood Pressure 103/68 11/19/2016 5:32 PM CDT Pulse 66 11/19/2016 5:32 PM CDT Temperature 37 ??C (98.6 ??F) 11/19/2016 5:32 PM CDT Respiratory Rate 22 04/23/2014 10:29 AM AEROPLANE PILOT Oxygen Saturation 98% 11/19/2016 5:32 PM CDT Inhaled Oxygen Concentration - - Weight 86.9 kg (191 lb 9.6 oz) 11/19/2016 5:32 PM CDT Height 154.9 cm (5' 1) 04/23/2014 10:29 AM AEROPLANE PILOT Body Mass Index 36.2 04/23/2014 10:29 AM AEROPLANE PILOT Plan of Treatment Health Maintenance Due Date Last Done Comments COVID-19 vaccine series (#1) 06/25/1985 Tdap 12/26/1995 Depression screening for age 12+ 1996 BMI (ht and wt on same day) for age 18+ 2002 Hepatitis C screening for age 18-79 2002 Tetanus booster 2004 Pap test for age 21-65 07/08/2021 07/08/2018, 07/08/2018 Influenza for age 9-49 11/02/2021 Results Not on filefrom Last 3 Months Insurance Payer Benefit Plan / Subscriber ID Effective Dates Phone Addre ss Type Group [facility] [id number] 2018-Jie [place] [id number] [place] [phone] [address] (Home) [place] [address] Markus Esteves Personal/Family Self 1985 [address] (Home) [place] [id number] Care Teams Glass Production Machine Operator Relationship Specialty Start Date End Date West Ospina MD PCP - General Obstetrics and Gynecology 04/28/14 [address] [facility] [place] [id number]
--- OUTSIDE RECORDS SUMMARY | 2021-12-13 07:23 | XMS_ITS | Encounter Summary ---
:1985 Author Organization [facility] Address [address] [place] [address] Care Team Providers Name Role Phone Elsewhere, Pcp Primary Care Provider Unavailable Encounter Details Date Type Department Care Team Description 07/05/2021 [facility] Sherly Thompson C ardiomyopathy AND CLINICS M.DTelma Peripartum [address] [facility] [address] [facility] Delivery (HCC) [place], [place] (Primary Dx ) [phone] Social History Tobacco Use Types Packs/Day Years [...] 09/19/2021 relatives? How often do you attend yazidi or alevism services? Never 09/19/2021 Do you belong to any clubs or organizations such as No 09/19/2021 yazidi groups, unions, fraternal or athletic groups, or [...] place to sleep or slept in a fci (including now)? 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
--- OUTSIDE RECORDS SUMMARY | 2021-12-13 07:23 | XMS_ITS | Encounter Summary ---
:1985 Author Organization [facility] Address [address] [place] [address] Care Team Providers Name Role Phone Unavailable [...] 09/19/2021 relatives? How often do you attend roman catholic or adventism services? Never 09/19/2021 Do you belong to any clubs or organizations such as No 09/19/2021 roman catholic groups, unions, fraternal or athletic groups, or [...] place to sleep or slept in a jail (including now)? Sex Assigned at Date Recorded Female 09/19/2021 11:18 AM CDT documented as of this encounter Plan of Treatment Not on filedocumented as of this encounter Visit Diagnoses Not on filedocumented in this encounter
--- OUTSIDE RECORDS SUMMARY | 2021-12-13 07:23 | XMS_ITS | Encounter Summary ---
:1985 Author Organization [facility] Address [address] [place] [address] Care Team Providers Name Role Phone Elsewhere, Pcp Primary Care Provider Unavailable Encounter Details Date Type Department Care Team Description 09/19/2021 Hospital Encounter Department of Sherly Thompson Super vision Of Other Obstetrics and M.D. High Risk Gynecology in [address] [facility] Pregnancies [place], [place] Unspecified [place] [address] Trimester (HCC) [address] [phone] [place], [place] (Work) [phone] Social History Tobacco Use Types Packs/Day Years [...] 09/19/2021 relatives? How often do you attend rastafari or adventism services? Never 09/19/2021 Do you belong to any clubs or organizations such as No 09/19/2021 rastafari groups, unions, fraternal or athletic groups, or [...] or slept in a longterm (including now)? Education Answer Date Recorded What [...] chewable tablet Take 1 tablet by 0 [id number] (VINATE mouth daily. ONE) 60 mg iron-1 [...] LEVEL SINGLETO N AND TRANSVAGINAL Exam Site: [facility]2 Plurality: 1 OBHx: [G:(2)] ?F [...] Cookie Rosa R.D.M.S. on 09/19/2021 3:09:13 PM. Veterinary Assistant: ??Cookie Rosa R.D. M.S. Thank You For This Referral Procedure Note Rodolfo Woodruff M.B.B.S., [facility] - 09/19 NICK BARAJAS OB Exam, 09/19/2021 EXAM INFORMATION Patient Name: NICK BARAJAS : 1985 Age: 35 yrs Sex: Female Ref Phys: JESSE Ti FARNAZ Exam Date: 09/19/2021 Procedure: US OB ADVANCED LEVEL SINGLETO N AND TRANSVAGINAL Exam Site: [facility]2 Plurality: 1 OBHx: [G:(2)] F [...] Cookie Rosa R.D.M.S. on 09/19/2021 3:09:13 PM. Veterinary Assistant: Cookie Rosa R.D.M. S. Thank You For This Referral Jesse Osei M.D. IMG OB US PROCEDURES documented in this encounter Visit Diagnoses Diagnosis Supervision Of Other High Risk Pregnanci es Unspecified Trimester (HCC) documented in this encounter Care Teams Cutter Grind Tool Technician Relationship Specialty Start Date End Date Elsewhere, Pcp PCP - General Family Medicine 02/03/19 documented as of this encounter
--- OUTSIDE RECORDS SUMMARY | 2021-12-13 07:23 | XMS_ITS | Encounter Summary ---
:1985 Author Organization [facility] Address [address] [place] [address] Care Team Providers Name Role Phone Elsewhere, Pcp Primary Care Provider Unavailable Reason for Visit Auth/Cert Specialty Diagnoses / Procedures Referred By Contact Refer red To Contact Diagnoses Shortness Of Breath cariomegaly Procedures R06.02 (ICD-10-CM) - Shortness Of Breath DIR Referral ID Status Reason Start Date Expiration Date Visits Requ ested Visits Authorized [id number] 1 1 Encounter Details Date Type Department Care Team Description 02/02/2019 - Hospital Encounter [facility] Flaquito Rubio M.D., M.P.H. [address] [place] [phone] Shortness Of Breath 02/03/2019 [facility] Joey Freeman M.D. [address] [place] [address] (Primary Dx) [facility], Third Floor [address] [place] [id number] Social History Tobacco Use Types Packs/Day [...] How often do you attend orthodoxy or baptism services? Never 09/19/2021 Do you belong to [...] Comments Blood Pressure 134/83 02/03/2019 3:41 PM WRAPPER STITCHER Pulse 73 02/03/2019 3:41 PM WRAPPER STITCHER Temperature 36.6 ??C (97.9 ??F) 02/03/2019 3:41 PM WRAPPER STITCHER Respiratory Rate 22 02/03/2019 3:41 PM WRAPPER STITCHER Oxygen Saturation 97% 02/03/2019 3:41 PM WRAPPER STITCHER Inhaled Oxygen Concentration - - Weight 89.6 kg (197 lb 8.5 oz) 02/02/2019 10:13 PM WRAPPER STITCHER Height 154.9 cm (5' 1) 02/02/2019 10:13 PM WRAPPER STITCHER Body Mass Index 37.32 02/02/2019 10:13 PM WRAPPER STITCHER documented in this encounter Discharge Summaries Beth [...] was then transferred and directly admitted to [facility] for further cares. On arrival here, she [...] were provided to the patient and caregiver(s). PER STITCHER documented in this encounter Discharge Instructions Discharge InstructionsJulia Fischer - 02/03/2019 7:57 AM CST You were discharged from the [facility] Medicine 2 ([facility]) Service. Please identify this service name if you call with questions after hospitalization. PER STITCHER documented in this encounter Medications at Time [...] note that influenza and RSV were normal. PER STITCHER Eric Arthur M.D. - 02/02/2019 11:07 PM [...] her local doctor, who performed echocardiogram at [facility] that reportedly showed an EF of 50%. She was directed to the [place] [facility] where she had a CT-PE showing bilateral pleural effusion, nodular ground-glass opacities, and negative for PE. Chest x-ray showed mild cardiomegaly but was otherwise clear.She received a dose of IV furosemide before transfer to [facility]. Speaking with Mrs. Esteves on the floor, she states she was in her usual health before the onset of URI symptoms and subsequent dyspnea on exertion. She denies sick contacts and did receive her flu vaccine this year. She is originally from [place], immigrated to [place] at age 20. She was treated for [...] to track down the outside echo at [facility], and consider performing one here if this proves troublesome or does not provide all the information we need. She did receive furosemide in [place] and we will monitor her clinical status for improvement. Overall, she looks well and I am r eassured that her symptoms are primarily with exertion. Finally, she is currently and this will need to be a consideration with her ultimate treatment regimen. Rest per Dr. Guan. PER STITCHER Nuvia Guan M.D. - 02/02/2019 10:02 PM [...] file Gets together: Not on file Attends baptism service: Not on file Active member of [...] - Monitor I/Os and diurese as needed PER STITCHER documented in this encounter Nursing Notes Gertrude Jung R.N. - 02/03/2019 5:06 PM CST Shift Goals: Clinical Goals for the Shift: Patient will discharge Identify possible barriers to meeting goals/advancing plan of care: none End of Shift Summary: Patient discharged home with family all questions answered. Gertrude Jung R.N. PER STITCHER documented in this encounter Miscellaneous Notes Hospital [...] was then transferred and directly admitted to [facility] for further cares. On arrival here, she [...] was discharged in stable condition on 02/03/2019. PER STITCHER documented in this encounter Plan of Treatment Not on filedocumented as of this encounter Procedures Procedure Name Priority Date/Time Associated Comments Diagnosis ALBUMIN, RANDOM, U Routine 02/03/2019 5:06 Result s for PM WRAPPER STITCHER this procedure are in the results section. TROPONIN T, 5TH GEN, Timed 02/03/2019 12:24 Res ults for P PM WRAPPER STITCHER this procedure are in the results section. CBC WITHOUT Routine 02/03/2019 5:30 Results for DIFFERENTIAL, B AM WRAPPER STITCHER this procedu re are in the results section. BASIC METABOLIC Routine 02/03/2019 5:30 Results f or PANEL, S/P AM WRAPPER STITCHER this procedure are in the results section. ECG Routine 02/02/2019 11:27 Results for PM [facility]APPER STITCHER this procedure are in the results section. NT-PRO B-TYPE Routine 02/02/2019 11:19 Results fo r NATRIURETIC PEPTIDE PM WRAPPER STITCHER this pro cedure (BNP), S are in the results section. CBC WITH Routine 02/02/2019 11:19 Results for DIFFERENTIAL, B PM WRAPPER STITCHER this procedu re are in the results section. TROPONIN T, 5TH GEN, Routine 02/02/2019 11:19 Res ults for P PM WRAPPER STITCHER this procedure are in the results section. BASIC METABOLIC Routine 02/02/2019 11:19 Results for PANEL, S/P PM WRAPPER STITCHER this procedure are in the results section. INTERPRETATION OF RAD - Routine 02/02/2019 11:16 Resul ts for OUTSIDE CT CHEST (most inpatients PM WRAPPER STITCHER this pr ocedure and all are in the outpatients) results section. INFLUENZA A/B AND Routine 02/02/2019 11:14 Result s for RSV, PCR PM WRAPPER STITCHER this procedure are in the results section. documented in this encounter Results Microalbumin, Random, Urine (02/03/2019 5:06 PM WRAPPER STITCHER) P athologist Signature Albumin, 14.0 mg/L 02/03/2019 CHRISTIANO Random, U 5:51 PM WRAPPER STITCHER Comment: ----ADDITIONAL INFORMATION---- This test has been modified from the man ufactangelr's instructions. Its performance characteri stics were determined by [facility] in a manner co nsistent with CLIA requirements. This test has not bee n cleared or approved by the U.S. Food and Drug Admin istration. Creatinine 183 mg/dL 02/03/2019 5:51 PM WRAPPER STITCHER CHRISTIANO Albumin/Creatinine Ratio 8 <25 mg/g 02/03/2019 5:51 PM WRAPPER STITCHER CHRISTIANO Specimen Anatomical Collection Method Collection Time Receive d Time (Source) Location / / Volume Laterality Urine (Urine, 02/03/2019 5:06 PM 02/04/20 19 5:06 Clean Catch) WRAPPER STITCHER PM WRAPPER STITCHER Beth Reynolds M.D. LAB URINE ORDERABLES Performing Organization Address City/[facility] Phon e Number [facility] - [address] [address] [address] [place] [address] Troponin T, 5th Generation (02/03/2019 12:24 PM WRAPPER STITCHER) P athologist Signature Troponin T, 5th 9 <=10 ng/L [facility]/03[facility] Specimen Anatomical Collection Method Collection Time Receive d Time (Source) Location / / Volume Laterality Blood (Blood, 02/03/2019 12:24 02/03/2019 Venous) PM WRAPPER STITCHER 12:31 PM WRAPPER STITCHER Jose Spencer M.D. LAB BLOOD ADD-ON Performing Organization Address City/[facility] Phon e Number [facility] - [address] (ABNORMAL) CBC without Differential (02/03/2019 5:30 AM WRAPPER STITCHER) Patholo gist Method Time Signature Hemoglobin 10.4 (L) 11.6 - 02/03/2019 DTL 15.0 g/dL 6:11 AM WRAPPER STITCHER Hematocrit 32.6 (L) 35.5 - 02/03/2019 DTL 44.9 % 6:11 AM WRAPPER STITCHER Erythrocytes 3.75 (L) 3.92 - 02/03/2019 DTL 5.13 6:11 AM WRAPPER STITCHER x10(12)/L MCV 86.9 78.2 - 02/03/2019 DTL 97.9 fL 6:11 AM WRAPPER STITCHER RBC Distrib Width 15.5 12.2 - 02/03/2019 DTL 16.1 % 6:11 AM WRAPPER STITCHER Platelet Count 310 157 - 371 02/03/2019 DTL x10(9)/L 6:11 AM WRAPPER STITCHER Leukocytes 9.8 (H) 3.4 - 9.6 02/03/2019 DTL x10(9)/L 6:11 AM WRAPPER STITCHER Specimen Anatomical Collection Method Collection Time Receive d Time (Source) Location / / Volume Laterality Blood (Blood, 02/03/2019 5:30 AM 02/04/20 19 6:03 Venous) WRAPPER STITCHER AM WRAPPER STITCHER Nuvia Guan M.D., M.P.H. LAB BLOOD ADD-ON Performing Organization Address City/State/ZIP Code Phon e Number [facility] - [address] [place], [place] [address] [facility] [place] [address] Laboratories-[facility] [address] (ABNORMAL) BMP (Basic Metabolic Panel) (02/03/2019 5:30 AM WRAPPER STITCHER) P athologist Signature Potassium, S 4.2 3.6 - 5.2 02/03/2019 DTL mmol/L 6:35 AM WRAPPER STITCHER Sodium, S 141 135 - 145 02/03/2019 DTL mmol/L 6:35 AM WRAPPER STITCHER Chloride, S 104 98 - 107 02/03/2019 DTL mmol/L 6:35 AM WRAPPER STITCHER Bicarbonate, S 23 22 - 29 02/03/2019 DTL mmol/L 6:35 AM WRAPPER STITCHER Anion Gap 14 7 - 15 02/03/2019 DTL 6:35 AM WRAPPER STITCHER BUN (Blood Urea 18 6 - 21 02/03/2019 DTL Nitrogen), S mg/dL 6:35 AM WRAPPER STITCHER Creatinine 0.86 0.59 - 02/03/2019 DTL 1.04 mg/dL 6:35 AM WRAPPER STITCHER eGFR-Non 88 >=60 02/03/2019 DTL Black/ mL/min/BSA 6:35 AM WRAPPER STITCHER Syrian Comment: ----ADDITIONAL INFORMATION---- Estimated GFR calculated using the 2009 CKD_EPI creatinine equation. eGFR-Black/ >90 >=60 mL/min/BSA 2018 6:35 AM WRAPPER STITCHER DTL Comment: ----ADDITIONAL INFORMATION---- Estimated GFR calculated using the 2009 CKD_EPI creatinine equation. Calcium, Total, S 8.4 (L) 8.6 - 10.0 mg/dL 02/03/2019 6:35 AM WRAPPER STITCHER DTL Glucose, S 84 70 - 140 mg/dL 02/03/2019 6:35 AM WRAPPER STITCHER D TL Specimen Anatomical Collection Method Collection Time Receive d Time (Source) Location / / Volume Laterality Blood (Blood, 02/03/2019 5:30 AM 02/04/20 19 6:03 Venous) WRAPPER STITCHER AM WRAPPER STITCHER Nuvia Guan M.D., M.P.H. LAB BLOOD ADD-ON Performing Organization Address City/[facility]/ZIP Code Phon e Number [facility] - [address] [place], [place] [address] [facility] [place] [address] [facility] 200 [facility] ECG 12 Lead (02/02/2019 11:27 PM WRAPPER STITCHER) P athologist Signature Ventricular Rate 76 BPM MUSE ECG/Min [place] Interval 136 ms MUSE QRSD Interval 88 ms MUSE QT Interval 388 ms MUSE QTC Interval 436 ms MUSE P [place] 40 degrees MUSE R [place] 36 degrees MUSE T Wave [place] 33 degrees MUSE Specimen Anatomical Collection Method Collection Time Receive d Time (Source) Location / / Volume Laterality 02/02/2019 11:27 02/03/2019 5:37 PM WRAPPER STITCHER AM WRAPPER STITCHER Impressions MUSE - 02/03/2019 5:37 AM WRAPPER STITCHER Normal sinus rhythm Normal ECG No previous ECGs available Reviewed by RADHA Wells Narrative This result has an attachment that is no t available. Procedure Note Bharat Barone M.D., Ph.D. - 9 IMPRESSION: Normal sinus rhythm Normal ECG No previous ECGs available Reviewed by RADHA Wells Nuvia Guan M.D., M.P.H. ECG ORDERABLES Performing Organization Address City/[facility]/ZIP Code Phon e Number MUSE MUSE NA (ABNORMAL) NT-Pro B-Type Natriuretic Peptide (BNP) (02/02/2019 11:19 PM WRAPPER STITCHER) athologist Signature NT-Pro BNP 1138 (H) <=140 pg/mL 02/03/2019 DTL 12:39 AM WRAPPER STITCHER Comment: NT-proBNP values less than 300 pg/mL [...] Blood (Blood, 02/02/2019 11:19 02/02/2019 Venous) PM WRAPPER STITCHER 11:54 PM WRAPPER STITCHER Nuvia Guan M.D., M.P.H. LAB BLOOD ADD-ON Performing Organization Address City/[facility] Phon e Number [facility] - [address] [place] [address] Laboratories-[address] (ABNORMAL) Troponin T, 5th Generation (02/02/2019 11:19 PM WRAPPER STITCHER) P athologist Signature Troponin T, 5th 14 (H) <=10 ng/L 02/02/2019 [facility] 11:[facility] PM [facility]PER STITCHER Specimen Anatomical Collection Method Collection Time Receive d Time (Source) Location / / Volume Laterality Blood (Blood, 02/02/2019 11:19 02/02/2019 Venous) PM WRAPPER STITCHER 11:26 PM WRAPPER STITCHER Nuvia Guan M.D., M.P.H. LAB BLOOD ADD-ON Performing Organization Address City/[facility] Phon e Number [facility] - [address] [place], [place] [address] [place], [place] [address] [place] [address] (ABNORMAL) CBC with Differential (02/02/2019 11:19 PM WRAPPER STITCHER) Patholo gist Method Time Signature Hemoglobin 11.5 (L) 11.6 - 02/03/2019 DTL 15.0 g/dL 12:01 AM WRAPPER STITCHER Hematocrit 36.4 35.5 - 02/03/2019 DTL 44.9 % 12:01 AM WRAPPER STITCHER Erythrocytes 4.19 3.92 - 02/03/2019 DTL 5.13 12:01 AM WRAPPER STITCHER x10(12)/L MCV 86.9 78.2 - 02/03/2019 DTL 97.9 fL 12:01 AM WRAPPER STITCHER RBC Distrib Width 15.3 12.2 - 02/03/2019 DTL 16.1 % 12:01 AM WRAPPER STITCHER Platelet Count 312 157 - 371 02/03/2019 DTL x10(9)/L 12:01 AM WRAPPER STITCHER Leukocytes 10.2 (H) 3.4 - 9.6 02/03/2019 DTL x10(9)/L 12:01 AM WRAPPER STITCHER Neutrophils 8.33 (H) 1.56 - 02/03/2019 DTL 6.45 12:01 AM WRAPPER STITCHER x10(9)/L Lymphocytes 1.01 0.95 - 02/03/2019 DTL 3.07 12:01 AM WRAPPER STITCHER x10(9)/L Monocytes 0.69 0.26 - 02/03/2019 DTL 0.81 12:01 AM WRAPPER STITCHER x10(9)/L Eosinophils 0.13 0.03 - 02/03/2019 DTL 0.48 12:01 AM WRAPPER STITCHER x10(9)/L Basophils <0.03 0.01 - 02/03/2019 DTL 0.08 12:01 AM WRAPPER STITCHER x10(9)/L Specimen Anatomical Collection Method Collection Time Receive d Time (Source) Location / / Volume Laterality Blood (Blood, 02/02/2019 11:19 02/02/2019 Venous) PM WRAPPER STITCHER 11:54 PM WRAPPER STITCHER Nuvia Guan M.D., M.P.H. LAB BLOOD ADD-ON Performing Organization Address City/State/ZIP Code Phon e Number [facility] - [address] [place], [place] [address] [facility] [place] [address] Laboratories-[facility] [address] (ABNORMAL) BMP (Basic Metabolic Panel) (02/02/2019 11:19 PM WRAPPER STITCHER) P athologist Signature Potassium, S 4.1 3.6 - 5.2 02/03/2019 DTL mmol/L 12:39 AM WRAPPER STITCHER Sodium, S 144 135 - 145 02/03/2019 DTL mmol/L 12:39 AM WRAPPER STITCHER Chloride, S 103 98 - 107 02/03/2019 DTL mmol/L 12:39 AM WRAPPER STITCHER Bicarbonate, S 22 22 - 29 02/03/2019 DTL mmol/L 12:39 AM WRAPPER STITCHER Anion Gap 19 (H) 7 - 15 02/03/2019 DTL 12:39 AM WRAPPER STITCHER BUN (Blood Urea 15 6 - 21 02/03/2019 DTL Nitrogen), S mg/dL 12:39 AM WRAPPER STITCHER Creatinine 0.82 0.59 - 02/03/2019 DTL 1.04 mg/dL 12:39 AM WRAPPER STITCHER eGFR-Non >90 >=60 02/03/2019 DTL Black/ mL/min/BSA 12:39 AM WRAPPER STITCHER Syrian Comment: ----ADDITIONAL INFORMATION---- Estimated GFR calculated using the 2009 CKD_EPI creatinine equation. eGFR-Black/ >90 >=60 mL/min/BSA 2018 12:39 AM WRAPPER STITCHER DTL Comment: ----ADDITIONAL INFORMATION---- Estimated GFR calculated using the 2009 CKD_EPI creatinine equation. Calcium, Total, S 8.7 8.6 - 10.0 mg/dL 02/03/2019 12:3 9 AM WRAPPER STITCHER DTL Glucose, S 95 70 - 140 mg/dL 02/03/2019 12:39 AM WRAPPER STITCHER DTL Specimen Anatomical Collection Method Collection Time Receive d Time (Source) Location / / Volume Laterality Blood (Blood, 02/02/2019 11:19 02/02/2019 Venous) PM WRAPPER STITCHER 11:54 PM WRAPPER STITCHER Nuvia Guan M.D., M.P.H. LAB BLOOD ADD-ON Performing Organization Address City/State/ZIP Code Phon e Number [facility] - [address] [place], [place] [address] [facility] [place] [address] Laboratories-[facility] [address] Interpretation of Outside CT Chest (02/02/2019 11:16 PM WRAPPER STITCHER) Anatomical Region Laterality Modality Chest, Thoracic RST LOS, Thoracic ARZ LOS, Thoracic N/A Computed Tomography FLA LOS Specimen (Source) Anatomical Collection Method Collection Time Re ceived Time Location / / Volume Laterality 02/02/2019 11:25 PM WRAPPER STITCHER Impressions 02/03/2019 6:24 AM WRAPPER STITCHER 1. Negative for acute pulmonary embolism. 2. Cardiomegaly with mild pulmonary shiraz a and small bilateral pleural effusions, greater on the right. 3. Indeterminate groundglass and solid n odular opacities, greater in the right lung. Findings may be infectious or infl ammatory. Narrative 02/03/2019 6:24 AM WRAPPER STITCHER EXAM: ??INTERPRETATION OF OUTSIDE CT CHEST 1. [...] Respiratory Syncytial Virus, PCR (02/02/2019 11:14 PM WRAPPER STITCHER) Component Value Ref Range Test Analysis Performed Pathologis t Method Time At Signature Specimen NASOPHARYNGEAL 02/03/2019 DTL Source SWAB 10:56 AM WRAPPER STITCHER Influenza A, Negative Negative 02/03/2019 DTL PCR 10:56 AM WRAPPER STITCHER Influenza B, Negative Negative 02/03/2019 DTL PCR 10:56 AM WRAPPER STITCHER Respiratory Negative Negative 02/03/2019 DTL Syncytial 10:56 AM Virus, PCR WRAPPER STITCHER Specimen Anatomical Collection Method Collection Time Receive d Time (Source) Location / / Volume Laterality Varies 02/02/2019 11:14 02/03/2019 7:27 (Nasopharynx) PM WRAPPER STITCHER AM WRAPPER STITCHER Nuvia Guan M.D., M.P.H. LAB MICROBIOLOGY - GENERAL ORDERABLES Performing Organization Address City/State/ZIP Code Phon e Number [facility] - [address] [place], [place] [address] [facility] [place] [address] [facility] [address] documented in [...] tablet 1,000 mg Given 02/03/2019 3:32 PM WRAPPER STITCHER 1,000 mg (TYLENOL) 1,000 mg, oral, Every 6 hours PRN, mild pain or score 1-3 of 10, Starting on Sat02/02/19 at 2256 Given 02/03/2019 8:10 AM WRAPPER STITCHER 1,000 mg docusate sodium capsule 100 mg (COLACE) 100 mg, oral, 2 times daily PRN, constip ation, Starting on Sat02/03/19 at 0755, Do NOT crush or chew. heparin (porcine) Given 02/03/2019 1:17 PM WRAPPER STITCHER 5,000 Units Right Lower injection 5,000 Units Abdomen 5,000 Units, subcutaneous, Every 8 hours scheduled, First dose on Sat02/03/19 at 0600 Given 02/03/2019 6:09 AM WRAPPER STITCHER 5,000 Units Left Upper Arm (Back) ibuprofen tablet 600 mg (ADVIL,MOTRIN) Given 02/03/2019 11:43 AM WRAPPER STITCHER 600 mg 600 mg, oral, Every 6 hours PRN, moderate pain or score 4-6 of 10, Starting on Sat02/03/19 at 0755, Take with food or milk if GI disturbances occur with use. documented in this encounter Active and Recently Administered Medications Times are shown in WRAPPER STITCHER. Scheduled Medication Order 02/01/2019 02/02/2019 02/03/2019 heparin (porcine) injection 5,000 Units 0609 (Given - Provider: So Luna R.N.)1317 (Given - Provider: Vivi Guerra RLorena.) 5,000 Units, subcutaneous, Every 8 hours scheduled, First dose on Sat02/03/19 at 0600 PRN Medication Order 02/01/2019 02/02/2019 02/03/2019 acetaminophen tablet 1,000 mg (TYLENOL) 0810 (Given - Provider: Vivi Guerra R.N.)1532 (Given - Provider: Gertrude Jung R.N.) 1,000 mg, oral, Every 6 hours PRN, mild pain or score 1-3 of 10, Starting on Sat02/02/19 at 2256 docusate sodium capsule 100 mg (COLACE) 100 mg, oral, 2 times daily PRN, constip ation, Starting on Sat02/03/19 at 0755, Do NOT crush or chew. ibuprofen tablet 600 mg (ADVIL,MOTRIN) 1143 (Given - Provider: Vivi Guerra R.N.) 600 mg, oral, Every 6 hours PRN, moderat e pain or score 4-6 of 10, Starting on Sat02/03/19 at 0755, Take with food or milk if GI disturbances occur with use. documented in this encounter Care Teams Clerical Investigator Relationship Specialty Start Date End Date Elsewhere, Pcp PCP - General Family Medicine 02/03/19 documented as of this encounter
--- OUTSIDE RECORDS SUMMARY | 2021-12-13 07:23 | XMS_ITS | Encounter Summary ---
:1985 Author Organization [facility] Address [address] [place] [address] Care Team Providers Name Role Phone Unavailable [...] 09/19/2021 relatives? How often do you attend lutheran or judaism services? Never 09/19/2021 Do you belong to any clubs or organizations such as No 09/19/2021 lutheran groups, unions, fraternal or athletic groups, or [...] Chorionic Gonadotropin), Quantitative, (09/01/2014 11:05 AM CDT) [facility] gist Method Time Signature HCG, <0.5 <5.0 [facility] Quantitative, Negative; LABORATORIES - , S 5.0-25.0 [facility] Indeterminat CAMPUS e; >25.0 Positive IU/L Specimen Anatomical Collection Method Collection Time Receive d Time (Source) Location / / Volume Laterality 09/01/2014 11:05 09/01/2014 AM CDT 11:05 AM CDT Chapito Thomson M.D. LAB BLOOD ADD-ON Performing Organization Address City/State/ZIP Code Phon e Number [facility] LABORATORIES - [address] [place], [place] [address] [facility] Inhibin A and B, Tumor Marker (09/01/2014 11:05 AM CDT) athologist Signature Inhibin A, 6.3 <97.5 [facility] Tumor Marker, ([facility] LABORATORIES - S usal); [facility] <2.1 CAMPUS (Postmenop ausal) PG/ML Comment: ? ADDITIONAL INFORMATIO N ? The testing method is an immunoenzymatic assay ? manufactured by [employer]. and performed ? on the UniCel DxI [...] ? Inhibin B, S 17 SeeComment PG/ML [facility] Comment: ? REFERENCE VALUE------ ? <139 (Premenopausal, Follicular) ? <92 (Premenopausal, Luteal) ? <10 (Postmenopausal) ? ADDITIONAL INFORMATIO N ? The testing method is a manual immunoenz ymatic assay manufactured by [employer] ? [employer] ??Values obtained with diff erent assay [...] Organization Address City/State/ZIP Code Phon e Number [facility] LABORATORIES - [address] [place], [place] [address] [facility] (ABNORMAL) AFP (Alpha-Fetoprotein), Tumor Marker (09/01/2014 11:05 AM CDT) [facility] gist Method Time Signature Alpha-Fetopro 407 (H) SeeComment [facility] tein, Tumor NG/ML LABORATORIES - Marker, S [facility] Comment: ? REFERENCE VALUE------ ? <6.0 ? [...] Organization Address City/State/ZIP Code Phon e Number [facility] LABORATORIES - [address] [place], [place] [address] [facility] LD (Lactate Dehydrogenase) (09/01/2014 10:46 AM CDT) [facility] gist Method Time Signature Lactate 181 122 - 222 [facility] Dehydrogenase U/L LABORATORIES - (LD), S [facility] Specimen Anatomical Collection Method Collection Time Receive d Time (Source) Location / / Volume Laterality 09/01/2014 10:46 09/01/2014 AM CDT 10:46 AM CDT Chapito Thomson M.D. LAB BLOOD NON ADD-ON Performing Organization Address City/State/ZIP Code Phon e Number [facility] LABORATORIES - [address] [place], [place] [address] [facility] Hx general Pathology Report (09/01/2014 9:00 AM CDT) Specimen Anatomical Collection Method Collection Time Receive d Time (Source) Location / / Volume Laterality 09/01/2014 9:00 AM 201 5 9:00 CDT AM CDT Narrative [facility] - 09/01/2014 9:00 AM CDT ??09/01/2014 Surgical Pathology ?([id number]) ? Requested By: Ramon Rodriguez M.D. ? ?[id number] ? SLIDE DISPOSITION: ? DIAGNOSIS: ?? A. [...] ?? Participated in interpretation: ??Shirin Jolley M.D. [phone] and Stu Mariee M.D. [phone] ? Seen in consultation with Dr. Rodolfo [...] 09/07/2014 12:44 Interpreted by: Julio Dennis M.D. [id number] Report electronically signed by Julio Dennis M.D. [...] with scant calcifications. ??No papillary excrescence identified. ??Business Unit Controller sections a re submitted. ??Grossed by /[facility]. ?? B. Received fresh labeled left ovarian mass is a 65.9 gram, 8.8 x 6.8 x 2.4 cm holt-pink biloculated cyst. ??The specimen is deflated and displays a smooth surface. ??Openin g reveals one cyst containing sanguinous fluid and contains the holt-g reen debris, bezoar, fat and skin. ??No papillary excrescences are g rossly identified. ?? Business Unit Controller sections are submitted. ??Grossed [facility]. ?? C. Received fresh labeled left ovarian mass #2 is a 6.2 gram, 4.9 x 3.2 x 1.5 cm deflated unilocular cyst . ??Opening reveals holt-sierra grumous material and a bezoar. ??No pap illary excrescences are identified. ??Business Unit Controller sections a re submitted. ??Grossed by [facility]. ? BLOCK SUMMARY: Part A: ??Right ovarian [...] ? Procedure Note 05/25/2017 09/01/2014 Surgical Pathology ([id number]) Requested By: Ramon Rodriguez M.D. [phone] SLIDE DISPOSITION: DIAGNOSIS: A. Ovary, right mass, [...] dimension. Participated in interpretation: Klaudia Jolley M.D. [phone] and Stu Mariee M.D. [phone] Seen in consultation with Dr. Rodolfo jackson. [...] scant calcifications. No p apillary excrescence identified. Business Unit Controller sections are submitted. Grossed by /[facility]. B. Received fresh labeled left ovarian mass is a 65.9 gram, 8.8 x 6.8 x 2.4 cm holt-pink biloculated cyst. The specimen is deflated and displays a smooth surface. Opening reveals one cyst containing sanguinous fluid and contains the holt-g reen debris, bezoar, fat and skin. No papillary excrescences are carole ssly identified. Business Unit Controller sections are submitted. Grossed [facility]. C. Received fresh labeled left ovarian mass #2 is a 6.2 gram, 4.9 x 3.2 x 1.5 cm deflated unilocular cyst . Opening reveals holt-sierra grumous material and a bezoar. No papil fay excrescences are identified. Business Unit Controller sections are submitted. Grossed by [facility]. BLOCK SUMMARY: Part A: Right ovarian mass [...] Organization Address City/State/ZIP Code Phon e Number [facility] LABORATORIES - [address] [place], [place] [address] [facility] documented in this encounter Visit Diagnoses Not on filedocumented in this encounter
--- OUTSIDE RECORDS SUMMARY | 2021-12-13 07:23 | XMS_ITS | Encounter Summary ---
:1985 Author Organization [facility] Address [address] [place] [address] Care Team Providers Name Role Phone Unavailable [...] 09/19/2021 relatives? How often do you attend taoism or mormonism services? Never 09/19/2021 Do you belong to any clubs or organizations such as No 09/19/2021 taoism groups, unions, fraternal or athletic groups, or [...] Comments Blood Pressure 104/74 04/14/2014 2:57 PM CURED MEATS SUPERVISOR Pulse 74 04/14/2014 2:57 PM CURED MEATS SUPERVISOR Temperature - - Respiratory Rate - - Oxygen Saturation - - Inhaled Oxygen Concentration - - Weight 67.5 kg (148 lb 13 oz) 04/14/2014 2:57 PM CURED MEATS SUPERVISOR Height - - Body Mass Index - - documented in this encounter Progress Notes Ramy Ospina M.D. - 04/14/2014 2:53 PM CST [id number] CHIEF COMPLAINT/REASON FOR VISIT Ovarian cyst. HISTORY OF PRESENT ILLNESS This patient presents for FUR BLOWER OPERATOR consult from Dr. Rivera of [facility]. This is her first visit to [facility]. She is a 28-year-old G0, P0, female with LMP of 04/05/2014. The patient presents for FUR BLOWER OPERATOR consult from Dr. Rivera. She was seen [...] much improved. The patient now presents for FUR BLOWER OPERATOR consult. She reports that she has had [...] office for assistance, as well as to manager social media to help apply for medical insurance. 8. [...] I would like the patient to see manager social media, too for assistance, as mentioned above. 14. I spent 30 minutes cyep-ca-fnjy time with patient with over 50% of that time spent in counseling. Ramy Ospina M.D./oma Electronically Signed By: RAMY OSPINA MD On: 04/15/2014 10:41 AM Source: [facility] MHSDOLBEYNONRADSYS Document Id: [id number] D MEATS SUPERVISOR documented in this encounter Miscellaneous Notes Miscellaneous - Ramy Ospina M.D. - 04/14/2014 5:38 PM CST Ambulatory Discharge Medication List [address] [id number] Visit Information Name: NICK BARAJAS [facility] Number: [id number] Visit Date: 04/14/2014 [...] MD Signed On:14-APR-2014 17:38:32 Additional Information: Source: [facility] POWERCHART Document Id: [id number] D MEATS SUPERVISOR Miscellaneous - Ramy Ospina M.D. - 04/14/2014 5:38 PM CST Ambulatory Patient Summary [address] [id number] Visit Information Name: NICK BARAJAS [facility] Number: [id number] Current Date: 04/14/2014 [...] detail needed. Your Goals/Additional instructions: Source: [facility] Digital [employer] Document Id: [id number] D MEATS SUPERVISOR Miscellaneous - Isacc Wisdom L.P.N. - 04/14/2014 2:57 PM CST Adult Loom Mechanic Intake/History Adult Loom Mechanic Intake/History Entered On: 04/14/2014 15:00 CURED MEATS SUPERVISOR Performed On: 04/14/2014 14:57 CURED MEATS SUPERVISOR by ISACC WISDOM LPN Intake Chief Complaint [...] kg ISACC WISDOM LPN - 04/14/2014 14:57 CURED MEATS SUPERVISOR General Info Information Given By : Patient Languages : Martiniquais Is Patient Female and 13-50 no hysterectomy : Yes Status : Patient denies Are you ? : No ISACC WISDOM LPN - 04/14/2014 14:57 CURED MEATS SUPERVISOR Subjective Pain Symptoms : No ISACC WISDOM LPN - 04/14/2014 14:57 CURED MEATS SUPERVISOR Dependent Habits Tobacco Use/Currently Using : No Exposure to Tobacco Smoke : Other: Never Smoking Status : Never smoker ISACC WISDOM LPN - 04/14/2014 14:57 CURED MEATS SUPERVISOR ID Screen Drug Resistant Organism : No Travel Within Last 21 Days : No ISACC WISDOM LPN - 04/14/2014 14:57 CURED MEATS SUPERVISOR Source: [facility] Digital [employer] Dialog Document Id: [id number] CURED MEATS SUPERVISOR!27 D MEATS SUPERVISOR documented in this encounter Plan of Treatment Not on filedocumented as of this encounter Visit Diagnoses Not on filedocumented in this encounter
--- OUTSIDE RECORDS SUMMARY | 2021-12-13 07:23 | XMS_ITS | Encounter Summary ---
:1985 Author Organization [facility] Address [address] [place] [address] Care Team Providers Name Role Phone Elsewhere, Pcp Primary Care Provider Unavailable Reason for Visit Appointment Request (Routine) - Closed Specialty Diagnoses / Procedures Referred By Contact Refer red To Contact Maternal and Diagnoses Maternal Care For Known Or Suspected Abnormality And Damage NOS Sherly Thompson M.D. Medicine [address] [place] [address] Referral ID Status Reason Start Date Expiration Date Visits Requ ested Visits Authorized [id number] Closed 08/07/2021 08/07/2022 1 1 Encounter Details Date Type Department Care Team Description 09/19/2021 Routine Department of Radha Goddard Obstetrics and [place] Maternal Age Affecting Gynecology in [address] [place] [address] Management [place], [place] ([facility]) (Primary Dx) [address] [place] [address] [place], [place] [phone] (Work) [phone] Social History Tobacco Use Types Packs/Day Years [...] How often do you attend worship or taoism services? Never 09/19/2021 Do you [...] place to sleep or slept in a penitentiary (including now)? Education Answer Date Recorded What [...] Body Mass Index 38.7 02/02/2019 10:13 PM OFFICE RENTAL CLERK documented in this encounter Consult Notes Debby Goddard M.D. - 09/19/2021 3:00 PM CDT SUBJECTIVE Markus Esteves is a 35 y.o. at 19w4d. Estimated Date of Delivery: 02/05/22 is determined by LMP consistent with 8 week ultrasound. She is here today for consultation from [facility] to issues as listed below. HISTORY OF [...] chemotherapy in 2015 - graduated from oncology [employer] 3. History of CD x 1 [...] 35 y/o @ 20w1d who presents for [facility] consultation due to above issues. Anatomy ultrasound [...] Debby Goddard M.D. MFM Fellow PGY-6 Pager [phone] documented in this encounter Plan of Treatment Not on filedocumented as of this encounter Visit Diagnoses Diagnosis Multigravida Advanced Maternal Age Affec ting Management (HCC) - Primary documented in this encounter Care Teams Cosmetician Apprentice Relationship Specialty Start Date End Date Elsewhere, Pcp PCP - General Family Medicine 02/03/19 documented as of this encounter
--- OUTSIDE RECORDS SUMMARY | 2021-12-13 07:23 | XMS_ITS | Encounter Summary ---
:1985 Author Organization [facility] Address [address] [place] [address] Care Team Providers Name Role Phone Elsewhere, Pcp Primary Care Provider Unavailable Encounter Details Date Type Department Care Team Description 09/14/2021 Orders Only Department of Obstetrics Torrey Kim R.N. and Gynecology in [address] [place] [address] [place] [phone] [place] [address] [phone] Social History Tobacco Use Types Packs/Day Years [...] 09/19/2021 relatives? How often do you attend voodoo or rastafarian services? Never 09/19/2021 Do you belong to any clubs or organizations such as No 09/19/2021 voodoo groups, unions, fraternal or athletic groups, or [...] on filedocumented in this encounter Care Teams Process Engineering Intern Relationship Specialty Start Date End Date Elsewhere, Pcp PCP - General Family Medicine 02/03/19 documented as of this encounter
--- OUTSIDE RECORDS SUMMARY | 2021-12-13 07:23 | XMS_ITS | Encounter Summary ---
:1985 Author Organization [facility] Address [address] [place] [address] Care Team Providers Name Role Phone Elsewhere, Pcp Primary Care Provider Unavailable Encounter Details Date Type Department Care Team Description 08/07/2021 Orders Only Department of Nery Murrell Supervis ion Of Other Obstetrics and L, R.N. High Risk Pregnancies Gynecology in [address] [place] [address] Unspecified Trimester [place], [place] (HCC) (Primary Dx) [address] [place] [address] [place] [address] Social History Tobacco Use Types Packs/Day Years [...] 09/19/2021 relatives? How often do you attend nondenominational or jew services? Never 09/19/2021 Do you belong to any clubs or organizations such as No 09/19/2021 nondenominational groups, unions, fraternal or athletic groups, or [...] Primary documented in this encounter Care Teams Lpn Or Medical Assistant Relationship Specialty Start Date End Date Elsewhere, Pcp PCP - General Family Medicine 02/03/19 documented as of this encounter
--- OUTSIDE RECORDS SUMMARY | 2021-12-13 07:23 | XMS_ITS | Encounter Summary ---
:1985 Author Organization [facility] Address [address] [place] [address] Care Team Providers Name Role Phone Unavailable [...] 09/19/2021 relatives? How often do you attend jew or zoroastrian services? Never 09/19/2021 Do you belong to any clubs or organizations such as No 09/19/2021 jew groups, unions, fraternal or athletic groups, or [...] or slept in a penitentiary (including now)? Sex Assigned at Date Recorded Female 09/19/2021 11:18 AM CDT documented as of this encounter Last Filed Vital Signs Vital Sign Reading Time Taken Comments Blood Pressure 100/62 04/23/2014 2:23 PM SUPERVISOR SEWING ROOM Pulse 76 04/23/2014 2:23 PM SUPERVISOR SEWING ROOM Temperature - - Respiratory Rate - - Oxygen Saturation - - Inhaled Oxygen Concentration - - Weight 67.2 kg (148 lb 2.4 oz) 04/23/2014 2:23 PM SUPERVISOR SEWING ROOM Height - - Body Mass Index - - documented in this encounter Progress Notes Ramy Ospina M.D. - 04/23/2014 2:18 PM CST [id number] CHIEF COMPLAINT/REASON FOR VISIT Ovarian cyst, emergency [...] symptoms have resolved. 12. I have contacted [facility] and scheduled patient for laparoscopy with possible laparotomy with possible ovarian cystectomy versus oophorectomy, as well as excision of mass on 05/06/2014. 13. Pain precautions reviewed with the patient. 14. I would like the patient to see Ski Maker for assistance in applying for medical insurance. 15. I spent 30 minutes fxhf-ft-tlwc time with the patient, with over 50% of that time spent in counseling. Ramy Ospina M.D./oma Electronically Signed By: RAMY OSPINA MD On: 04/26/2014 08:16 AM Source: [facility] MHSDOLBEYNONRADSYS Document Id: [id number] RVISOR SEWING ROOM documented in this encounter Miscellaneous Notes Miscellaneous - Ramy Ospina M.D. - 04/23/2014 2:58 PM CST Ambulatory Patient Summary [address] [id number] Visit Information Name: NICK BARAJAS [facility] Number: [id number] Current Date: 04/23/2014 14:58:01 Physicians [...] By: RAMY OSPINA MD Signed On:23-APR-2014 14:57:59 Your Allergies & Intolerances Substance Reaction Symptoms Category Comments No Known Allergies Drug Your Problem List Problem Status Onset Comments Cyst Ovary Active Your Upcoming Appointments Date Time Location Provider 05/03/2014 09:30 [facility] PRIVATE DETECTIVE Ramy Ospina MD Attention: Contact your local Clinic if further appointment detail needed. Your Goals/Additional instructions: Source: [facility] POWERCHART Document Id: [id number] RVISOR SEWING ROOM Miscellaneous - Ramy Ospina M.D. - 04/23/2014 2:58 PM CST Ambulatory Discharge Medication List [address] [id number] Visit Information Name: NICK BARAJAS [facility] Number: [id number] Visit Date: 04/23/2014 14:58:01 Attending [...] MD Signed On:23-APR-2014 14:57:59 Additional Information: Source: [facility] POWERCHART Document Id: [id number] RVISOR SEWING ROOM Miscellaneous - Isacc Wisdom, L.P.N. - 04/23/2014 2:23 PM CST Adult Commercial Loan Assistant Intake/History Adult Commercial Loan Assistant Intake/History Entered On: 04/23/2014 14:25 SUPERVISOR SEWING ROOM Performed On: 04/23/2014 14:23 SUPERVISOR SEWING ROOM by ISACC WISDOM LPN Intake Chief Complaint [...] kg ISACC WISDOM LPN - 04/23/2014 14:23 SUPERVISOR SEWING ROOM General Info Information Given By : Patient Languages : Greenlandic Is Patient Female and 13-50 no hysterectomy : Yes Status : Patient denies Are you ? : No ISACC WISDOM LPN - 04/23/2014 14:23 SUPERVISOR SEWING ROOM Subjective Pain Symptoms : No ISACC WISDOM LPN - 04/23/2014 14:23 SUPERVISOR SEWING ROOM Dependent Habits Tobacco Use/Currently Using : No Exposure to Tobacco Smoke : Other: Never Smoking Status : Never smoker ISACC WISDOM LPN - 04/23/2014 14:23 SUPERVISOR SEWING ROOM ID Screen Drug Resistant Organism : No Travel Within Last 21 Days : No ISACC WISDOM LPN - 04/23/2014 14:23 SUPERVISOR SEWING ROOM Source: [facility] [employer] Document Id: [id number] SUPERVISOR SEWING ROOM!28 RVISOR SEWING ROOM documented in this encounter Plan of Treatment Not on filedocumented as of this encounter Visit Diagnoses Not on filedocumented in this encounter
--- OUTSIDE RECORDS SUMMARY | 2021-12-13 07:23 | XMS_ITS | Encounter Summary ---
:1985 Author Organization [facility] Address [address] [place] [address] Care Team Providers Name Role Phone Unavailable [...] 09/19/2021 relatives? How often do you attend amish or scientology services? Never 09/19/2021 Do you belong to any clubs or organizations such as No 09/19/2021 amish groups, unions, fraternal or athletic groups, or [...]
--- OUTSIDE RECORDS SUMMARY | 2021-12-13 07:23 | XMS_ITS | Encounter Summary ---
:1985 Author Organization [facility] Address [address] [place] [address] Care Team Providers Name Role Phone Unavailable [...] How often do you attend voodoo or latter-day services? Never 09/19/2021 Do you [...] or slept in a residential (including now)? Sex Assigned at Date Recorded Female 09/19/2021 11:18 AM CDT documented as of this encounter Progress Notes Ramy Ospina M.D. - 04/23/2014 9:56 AM CST [id number] CHIEF COMPLAINT/REASON FOR VISIT Abdominal pain, nausea, [...] OSPINA MD On: 04/23/2014 11:23 AM Source: [facility] MHSDOLBEYNONRADSYS Document Id: [id number] ATTACHER documented in this encounter Miscellaneous Notes Miscellaneous - Ramy Ospina M.D. - 04/23/2014 10:25 AM CST Ambulatory Patient Summary [facility] [address] [place] [id number] Visit Information Name: NICK BARAJAS [facility] Number: [id number] Current Date: 04/23/2014 10:25:14 Physicians [...] appointment detail needed. Your Goals/Additional instructions: Source: [facility] POWERCHART Document Id: [id number] ATTACHER Miscellaneous - Ramy Ospina M.D. - 04/23/2014 10:25 AM CST Ambulatory Discharge Medication List [address] [id number] Visit Information Name: NICK BARAJAS [facility] Number: [id number] Visit Date: 04/23/2014 10:25:13 Attending [...] MD Signed On:23-APR-2014 10:25:12 Additional Information: Source: [facility] POWERCHART Document Id: [id number] ATTACHER documented in this encounter Plan of Treatment Not on filedocumented as of this encounter Visit Diagnoses Not on filedocumented in this encounter
--- OUTSIDE RECORDS SUMMARY | 2021-12-13 07:23 | XMS_ITS | Encounter Summary ---
:1985 Author Organization [facility] Address [address] [place] [address] Care Team Providers Name Role Phone Unavailable [...] How often do you attend cheondoism or anabaptism services? Never 09/19/2021 Do you belong to [...] place to sleep or slept in a senior living (including now)? Sex Assigned at Date Recorded Female 09/19/2021 11:18 AM CDT documented as of this encounter Last Filed Vital Signs Vital Sign Reading Time Taken Comments Blood Pressure 112/78 05/03/2014 9:26 AM SECONDARY SET UP MAN Pulse 72 05/03/2014 9:26 AM SECONDARY SET UP MAN Temperature - - Respiratory Rate - - Oxygen Saturation - - Inhaled Oxygen Concentration - - Weight 66.7 kg (147 lb 0.8 oz) 05/03/2014 9:26 AM SECONDARY SET UP MAN Height - - Body Mass Index - - documented in this encounter Progress Notes Ramy Patterson M.D. - 05/03/2014 9:19 AM CST [id number] CHIEF COMPLAINT/REASON FOR VISIT Pelvic mass. HISTORY [...] and her are requesting a consult to [facility] to see a specialty clinic for evaluation and management. They would like to have surgery at [facility]. I feel this is very reasonable given her situation and the elevated CA-125 value. I discussed the possibility of laparoscopy with possible laparotomy. Instead of having this done at our [facility] the patient would like to go to [facility] which I feel it is very reasonable. [...] PATTERSON MD On: 05/03/2014 02:34 PM Source: [facility] MHSDOLBEYNONRADSYS Document Id: [id number] NDARY SET UP MAN documented in this encounter Miscellaneous Notes Telephone [...] patient. She is requesting another consult to Driver. Her prior consult was closed due to insurance reasons and now she has insurance and wants to be seen in [place]. Consult placed. Addendum by RAMY PATTERSON MD [...] like to do? From: GREG WOOTEN ( [employer] Audit Manager) To: Obstetrics/Gynecology Nurse; Sent: 05/11/2014 10:19:20 CDT Subject: *Phone Message/dr patterson Caller is: ( x ) Patient ( ) Mother ( ) Father ( ) Spouse ( ) Daughter ( ) Son ( ) Pharmacy ( ) Other: Physician: Patient N #: Reason for Call: S needs another referral sent to Meera Yanez can call [phone] Message: Advice/Action: Source used: ( ) Verbalizes [...] back cell phone number ( ) Source: [facility] [place] Document Id: [id number] Miscellaneous - Ramy Patterson M.D. - 05/03/2014 9:58 AM CST Ambulatory Patient Summary [address] [id number] Visit Information Name: NICK BARAJAS [facility] Number: [id number] Current Date: 05/03/2014 09:58:59 [...] appointment detail needed. Your Goals/Additional instructions: Source: [facility] [place] Document Id: [id number] Ramy Harris M.D. - 05/03/2014 9:58 AM CST Ambulatory Discharge Medication List [address] [id number] Visit Information Name: NICK BARAJAS [facility] Number: [id number] Visit Date: 05/03/2014 09:58:58 Attending Provider: RAMY PATTERSON MD Primary Care Provider: PCP, UNASSIGNED - FB NCIK BARAJAS has been given the following list [...] MD Signed On:03-MAY-2014 09:58:56 Additional Information: Source: Message Bus Document Id: [id number] [place] - Caroline Wisdom L.P.N. - 05/03/2014 9:26 AM CST Adult Electronics Commodity Manager Intake/History Adult Electronics Commodity Manager Intake/History Entered On: 05/03/2014 9:27 SECONDARY SET UP MAN Performed On: 05/03/2014 9:26 SECONDARY SET UP MAN by CAROLINE WISDOM LPN Intake Chief Complaint [...] kg CAROLINE WISDOM LPN - 05/03/2014 9:26 SECONDARY SET UP MAN General Info Information Given By : Patient Languages : Kyrgyz Is Patient Female and 13-50 no hysterectomy : Yes Status : Patient denies Are you ? : No CAROLINE WISDOM LPN - 05/03/2014 9:26 SECONDARY SET UP MAN Subjective Pain Symptoms : No CAROLINE WISDOM LPN - 05/03/2014 9:26 SECONDARY SET UP MAN Dependent Habits Tobacco Use/Currently Using : No Exposure to Tobacco Smoke : Other: Never Smoking Status : Never smoker CAROLINE WISDOM LPN - 05/03/2014 9:26 SECONDARY SET UP MAN ID Screen Drug Resistant Organism : No Travel Within Last 21 Days : No Contact with someone with Ebola : No CAROLINE WISDOM LPN - 05/03/2014 9:26 SECONDARY SET UP MAN Source: [facility] POWERCHART Document Id: [id number] SECONDARY SET UP MAN!29 NDARY SET UP MAN documented in this encounter Plan of Treatment Not on filedocumented as of this encounter Visit Diagnoses Not on filedocumented in this encounter
--- OUTSIDE RECORDS SUMMARY | 2021-12-13 07:23 | XMS_ITS | Encounter Summary ---
:1985 Author Organization [facility] Address [address] [place] [address] Care Team Providers Name Role Phone Unavailable Primary Care Provider Unavailable Encounter Details Date Type Department Care Team Description 02/02/2019 Ancillary Procedure Department of Radiology Amara Arthur in [facility] aileen Cormier [address] [facility] [address] [place] [phone] (Wo rk) Social History Tobacco Use Types [...] How often do you attend yazidi or pentecostalism services? Never 09/19/2021 Do you belong to [...] for OUTSIDE CT CHEST (most inpatients PM TRAINING EXECUTIVE this pr ocedure and all are in the outpatients) results section. documented in this encounter Results Interpretation of Outside CT Chest (02/02/2019 11:16 PM TRAINING EXECUTIVE) Anatomical Region Laterality Modality Chest, Thoracic RST LOS, Thoracic ARZ LOS, Thoracic N/A Computed Tomography FLA LOS Specimen (Source) Anatomical Collection Method Collection Time Re ceived Time Location / / Volume Laterality 02/02/2019 11:25 PM TRAINING EXECUTIVE Impressions 02/03/2019 6:24 AM TRAINING EXECUTIVE 1. Negative for acute pulmonary embolism. 2. Cardiomegaly with mild pulmonary shiraz a and small bilateral pleural effusions, greater on the right. 3. Indeterminate groundglass and solid n odular opacities, greater in the right lung. Findings may be infectious or infl ammatory. Narrative 02/03/2019 6:24 AM TRAINING EXECUTIVE EXAM: ??INTERPRETATION OF OUTSIDE CT CHEST 1. [...]
--- OUTSIDE RECORDS SUMMARY | 2021-12-13 07:23 | XMS_ITS | Clinical Summary ---
:1985 Author Organization [facility] Address [address] [place] [address] Care Team Providers Name Role Phone Elsewhere, Pcp Primary Care Provider Unavailable Source Comments Patient records contain information from all sites at [facility]. For routine questions regarding patient records, call [phone] during business hours, M-F 8:00 AM - 5:00 PM Central Time. Record requests for emergency care only can be directed to [phone] at any time.[facility] Allergies No known active allergies Medications Medication Sig Dispensed Refills Start Date End Date Status Take 1 tablet by 0 Act davis qdydsea-Rg-gzpx-FA mouth daily. (VINATE ONE) 60 mg iron-1 mg per tablet cetirizine (ZyrTEC) 10 Chew 10 mg daily. 0 Active mg chewable tablet aspirin [address] Take 81 mg by 0 Active tablet mouth daily. Active Problems Patient Care Coordination Note Formatting of this note might be differe nt from the original. Pt is being seen in [place]. 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 from Last 3 Months Social History Tobacco [...] 09/19/2021 relatives? How often do you attend congregation or samaritan services? Never 09/19/2021 Do you belong to any clubs or organizations such as No 09/19/2021 congregation groups, unions, fraternal or athletic groups, or [...] or slept in a fpc (including now)? Education Answer Date Recorded What [...] CDT Respiratory Rate 22 02/03/2019 3:41 PM CORPORATE RECRUITER Oxygen Saturation 99% 09/19/2021 3:20 PM CDT Inhaled Oxygen Concentration - - Weight 92.9 kg (204 lb 12.9 oz) 09/19/2021 3:18 PM CDT Height 154.9 cm (5' 1) 02/02/2019 10:13 PM CORPORATE RECRUITER Body Mass Index 38.7 02/02/2019 10:13 PM CORPORATE RECRUITER Plan of Treatment Health Maintenance Due Date Last Done Comments HIV Screening 1985 Hepatitis B Vaccines (1 of 3 1984 - 3-dose series) Hepatitis C Screening 1985 Lipid (Cholesterol) Screening 1985 Cervical Cancer Screening 10/16/2018 10/17/2015 Depression Screening (Annual 03/04/2021 PHQ-2) COVID-19 Vaccine (4 - Booster 05/12/2021 03/17/2021, for Pfizer series) 06/28/2020, 06/07/2020 Influenza Vaccine (#1) 2021 11/19/2019, 12/02/2018, 10/20/2017 DTaP,Tdap,and Td Vaccines (2 12/02/2028 12/02/2018 - Td or Tdap) Pneumococcal vaccine (0-64 Aged Out No lo [...] N AND TRANSVAGINAL Exam Site: [facility] OB #2 Plurality: 1 OBHx: [G:(2)] ?F [...] ?? 20w1d [+/-1.40] Method: BRANDON BRANDON: 02/05/2022 [place]: 20w4d [+/-1.40] Method: ?? BPD, HC, [...] x 3.3cm Preliminary Read by Cookie Rosa R.Florence.M.S. on 09/19/2021 3:09:13 PM. Slicing Machine Operator/Tender: ??Cookie Rosa R.D. M.S. Thank You For This Referral Procedure Note Rodolfo Woodruff M.B.B.S., M.D. - 09/19 NICK BARAJAS OB Exam, 09/19/2021 EXAM INFORMATION Patient Name: NICK BARAJAS : 1985 Age: 35 yrs Sex: Female Ref Phys: JESSE OSEI Exam Date: 09/19/2021 Procedure: US OB ADVANCED LEVEL SINGLETO N AND TRANSVAGINAL Exam Site: [facility] OB #2 Plurality: 1 OBHx: [G:(2)] F [...] Cookie Rosa R.D.M.S. on 09/19/2021 3:09:13 PM. Slicing Machine Operator/Tender: Cookie Rosa R.D.M. S. Thank You For This Referral Jesse SHI OB US PROCEDURES from Last 3 Months Insurance Payer Benefit Plan Subscriber ID Effective Phone Address Typ e / Group Dates [facility] CHOICE [id number] 2018-Pres [phone] [address] [address] PPO PLUS ent [address] [place] [id number] Guarantor Name Account Type Relation to Date of Phone Billing Patient Address Nick Barajas Personal/Family Self 1985 [phone] [address] [facility] (Home) [place] [address] Advance Directives For more information, please contact: [phone] Latest Code Status on File Code Status Date Activated Date Inactivated Comments Full Code 02/02/2019 10:57 PM 02/03/2019 7:17 PM Full Code: Discussed Care Teams Dog Trainer Relationship Specialty Start Date End Date Elsewhere, Pcp PCP - General Family Medicine 02/03/19
== END 2021-12-13 07:21 | disposition home or self-care (01) ==
LOC: US 07:21
PROVIDERS: PCP Family Medicine; Visit Provider Obstetrics & Gynecology
DX: O99.283 Endocrine, nutritional and metabolic diseases complicating pregnancy, third trimester (principal); E05.90 Thyrotoxicosis, unspecified without thyrotoxic crisis or storm; Z3A.35 35 weeks gestation of pregnancy
CPT/HCPCS: 76816

== ENCOUNTER 2022-01-10 10:49 | Outpatient (CLI) | payer OTHER, SELFPAY ==
--- OUTSIDE RECORDS SUMMARY | 2022-01-10 11:13 | XMS_ITS | Encounter Summary ---
:1985 Author Organization [facility] Address [address] [place] [address] Care Team Providers Name Role Phone Elsewhere, Pcp Primary Care Provider Unavailable Encounter Details Date Type Department Care Team Description 09/19/2021 Hospital Encounter Department of Sherly Thompson Super vision Of Other Obstetrics and M.D. High Risk Gynecology in [address] [facility] Pregnancies [place], [place] Unspecified [place] [address] Trimester (HCC) [address] [phone] [place], [place] (Work) [phone] Social History Tobacco Use Types Packs/Day Years [...] drinks on one occasion? No t asked Social Isolation Answer Date Recorded In a typical week, how many times do you talk on the Twice a week 09/19/2021 phone with family, friends, or neighbors? How often do you get together with friends or Once a week 09/19/2021 relatives? How often do you attend protestant or sikhism services? Never 09/19/2021 Do you belong to any clubs or organizations such as No 09/19/2021 protestant groups, unions, fraternal or athletic groups, or [...] or slept in a jail (including now)? Education Answer Date Recorded What [...] chewable tablet Take 1 tablet by 0 calpfpj-Df-phja-FA (VINATE mouth daily. ONE) 60 mg iron-1 [...] Exam, 09/19/2021 EXAM INFORMATION Patient Name: ??NICK BARAJASH : ??1985 Age: ??35 yrs Sex: ??Female Ref Phys: ??JESSE Luke FARNAZ Exam Date: 09/19/2021 Procedure: US OB ADVANCED LEVEL SINGLETO N AND TRANSVAGINAL Exam Site: [facility] OB #2 Plurality: 1 OBHx: [G:(2)] ?F [...] Cookie Rosa R.D.M.S. on 09/19/2021 3:09:13 PM. Battery Assembler Dry Cell: ??Cookie Rosa R.D. M.S. Thank You For This Referral Procedure Note Rodolfo Woodruff M.B.BCasa Bess - 09/19 NICK BARAJAS OB Exam, 09/19/2021 EXAM INFORMATION Patient Name: NICK BARAJAS : 1985 Age: 35 yrs Sex: Female Ref Phys: JESSE OSEI Exam Date: 09/19/2021 Procedure: US OB ADVANCED LEVEL SINGLETO N AND TRANSVAGINAL Exam Site: [facility] OB #2 Plurality: 1 OBHx: [G:(2)] F [...] Cookie Rosa R.D.M.S. on 09/19/2021 3:09:13 PM. Battery Assembler Dry Cell: Cookie Rosa R.D.MTelma S. Thank You For This Referral Jesse Osei M.D. IMMaggie OB US PROCEDURES documented in this encounter Visit Diagnoses Diagnosis Supervision Of Other High Risk Pregnanci es Unspecified Trimester (HCC) documented in this encounter Care Teams Facilities Specialist Relationship Specialty Start Date End Date Elsewhere, Pcp PCP - General Family Medicine 02/03/19 documented as of this encounter
--- OUTSIDE RECORDS SUMMARY | 2022-01-10 11:13 | XMS_ITS | Encounter Summary ---
:1985 Author Organization [facility] Address [address] [place] [address] Care Team Providers Name Role Phone Elsewhere, Pcp Primary Care Provider Unavailable Encounter Details Date Type Department Care Team Description 08/07/2021 Orders Only Department of Nery Murrell Supervis ion Of Other Obstetrics and L, R.N. High Risk Pregnancies Gynecology in [address] [place] [address] Unspecified Trimester [place], [place] (HCC) (Primary Dx) [address] [place] [phone] [place] [address] Social History Tobacco Use Types Packs/Day Years [...] 09/19/2021 relatives? How often do you attend yazdanism or hindu services? Never 09/19/2021 Do you belong to any clubs or organizations such as No 09/19/2021 yazdanism groups, unions, fraternal or athletic groups, or [...] place to sleep or slept in a correction (including now)? Sex Assigned at Date Recorded Female 09/19/2021 11:18 AM CDT documented as of this encounter Plan of Treatment Not on filedocumented as of this encounter Visit Diagnoses Diagnosis Supervision Of Other High Risk Pregnanci es Unspecified Trimester (HCC) - Primary documented in this encounter Care Teams Gasoline Catalyst Operator Relationship Specialty Start Date End Date Elsewhere, Pcp PCP - General Family Medicine 02/03/19 documented as of this encounter
--- OUTSIDE RECORDS SUMMARY | 2022-01-10 11:13 | XMS_ITS | Clinical Summary ---
:1985 Author Organization [facility] Address [address] [place] [address] Care Team Providers Name Role Phone Elsewhere, Pcp Primary Care Provider Unavailable Source Comments Patient records contain information from all sites at [facility]. For routine questions regarding patient records, call [phone] during business hours, M-F 8:00 AM - 5:00 PM Central Time. Record requests for emergency care only can be directed to [phone] at any time.[facility] Allergies No known active allergies Medications Medication Sig Dispensed Refills Start Date End Date Status Take 1 tablet by 0 Act davis jizngno-Vj-chgn-FA mouth daily. (VINATE ONE) 60 mg iron-1 mg per tablet cetirizine (ZyrTEC) 10 Chew 10 mg daily. 0 Active mg chewable tablet aspirin [address] Take 81 mg by 0 Active tablet mouth daily. Active Problems Patient Care Coordination Note Formatting of this note might be differe nt from the original. Pt is being seen in [place]. 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 How often do you attend shinto or yazidi services? Never 09/19/2021 Do you belong to any clubs or organizations such as No 09/19/2021 shinto groups, unions, fraternal or athletic groups, or [...] or slept in a fci (including now)? Education Answer Date Recorded What [...] CDT Respiratory Rate 22 02/03/2019 3:41 PM JAVA SCALA DEVELOPER Oxygen Saturation 99% 09/19/2021 3:20 PM CDT Inhaled Oxygen Concentration - - Weight 92.9 kg (204 lb 12.9 oz) 09/19/2021 3:18 PM CDT Height 154.9 cm (5' 1) 02/02/2019 10:13 PM JAVA SCALA DEVELOPER Body Mass Index 38.7 02/02/2019 10:13 PM JAVA SCALA DEVELOPER Plan of Treatment Health Maintenance Due Date Last Done Comments HIV Screening 1985 Hepatitis B Vaccines (1 of 1984 3 - 3-dose series) Hepatitis C Screening 1985 Lipid (Cholesterol) 1985 Screening Cervical Cancer Screening 10/16/2018 10/17/2015 Depression Screening 03/04/2021 (Annual PHQ-2) COVID-19 Vaccine (4 - 05/12/2021 03/17/2021, 06/28/2020, Booster for Pfizer series) 06/07/2020 DTaP,Tdap,and Td Vaccines 11/30/2031 11/29/2021, 12/02/2018 (3 - Td or Tdap) Influenza Vaccine Completed 12/13/2021, 11/19/2019, 12/02/2018, Additional history exists Pneumococcal vaccine (0-64 Aged Out No lo nger eligible years) based on patient 's age to complete this topic Insurance Payer Benefit Plan Subscriber ID Effective Phone Address Typ e / Group Dates [facility] CHOICE [id number] 2018-Pres [phone] [address] [address] PPO PLUS ent [address] [place] [address] Guarantor Name Account Type Relation to Date of Phone Billing Patient Address Markus Esteves Personal/Family Self 1985 [address] [facility] (Home) [place] [address] Advance Directives For more information, please contact: [phone] Latest Code Status on File Code Status Date Activated Date Inactivated Comments Full Code 02/02/2019 10:57 PM 02/03/2019 7:17 PM Question Answer Comments Full Code: Discussed Care Teams Press Washer Relationship Specialty Start Date End Date Elsewhere, Pcp PCP - General Family Medicine 02/03/19
--- OUTSIDE RECORDS SUMMARY | 2022-01-10 11:13 | XMS_ITS | Encounter Summary ---
:1985 Author Organization [facility] Address [address] [place] [address] Care Team Providers Name Role Phone Elsewhere, Pcp Primary Care Provider Unavailable Reason for Visit Appointment Request (Routine) - Closed Specialty Diagnoses / Procedures Referred By Contact Refer red To Contact Maternal and Diagnoses Maternal Care For Known Or Suspected Abnormality And Damage NOS Sherly Thompson M.D. Medicine [address] [place] [address] Referral ID Status Reason Start Date Expiration Date Visits Requ ested Visits Authorized [id number] Closed 08/07/2021 08/07/2022 1 1 Encounter Details Date Type Department Care Team Description 09/19/2021 Routine Department of Radha Goddard Obstetrics and [place] Maternal Age Affecting Gynecology in [address] [place] [address] Management [place], [place] ([facility]) (Primary Dx) [address] [place] [address] [place], [place] [phone] [address] (Work) [phone] Social History Tobacco Use Types Packs/Day Years [...] 09/19/2021 relatives? How often do you attend samaritan or presybeterian services? Never 09/19/2021 Do you belong to any clubs or organizations such as No 09/19/2021 samaritan groups, unions, fraternal or athletic groups, or [...] or slept in a mcfp (including now)? Education Answer Date Recorded What [...] Mass Index 38.7 02/02/2019 10:13 PM MEDICAL OFFICE PROFESSIONAL INSTRUCTOR documented in this encounter Consult Notes Debby Goddard M.D. - 09/19/2021 3:00 PM CDT SUBJECTIVE Markus Esteves is a 35 y.o. at 19w4d. Estimated Date of Delivery: 02/05/22 is determined by LMP consistent with 8 week ultrasound. [facility]. HISTORY OF [...] chemotherapy in 2015 - graduated from oncology [facility] 3. History of CD x 1 [...] 35 y/o @ 20w1d who presents for [facility] consultation due to above issues. Anatomy ultrasound [...] Debby Goddard M.D. MFM Fellow PGY-6 Pager [phone] documented in this encounter Plan of Treatment Not on filedocumented as of this encounter Visit Diagnoses Diagnosis Multigravida Advanced Maternal Age Affec ting Management (HCC) - Primary documented in this encounter Care Teams Admission Specialist Relationship Specialty Start Date End Date Elsewhere, Pcp PCP - General Family Medicine 02/03/19 documented as of this encounter
--- OUTSIDE RECORDS SUMMARY | 2022-01-10 11:13 | XMS_ITS | Encounter Summary ---
:1985 Author Organization [facility] Address [address] [place] [address] Care Team Providers Name Role Phone Elsewhere, Pcp Primary Care Provider Unavailable Encounter Details Date Type Department Care Team Description 09/14/2021 Orders Only Department of Obstetrics Torrey Kim R.N. and Gynecology in [address] [place] [address] [place] [address] [place] [address] [phone] Social History Tobacco Use Types Packs/Day Years [...] often do you attend roman catholic or advent services? Never 09/19/2021 Do you belong to [...] on filedocumented in this encounter Care Teams Machine Clothing Replacer Relationship Specialty Start Date End Date Elsewhere, Pcp PCP - General Family Medicine 02/03/19 documented as of this encounter
--- OUTSIDE RECORDS SUMMARY | 2022-01-10 11:13 | XMS_ITS | Clinical Summary ---
:1985 Demographics Address [address] [facility] [place] [place] [address] Home Phone Phone Preferred Language Yi Marital Status Unknown Synagogue Affiliation Unknown Race Ethnic Group Not or Author Organization [facility] [place] [address] Care Team Providers Name Role Phone West Ospina MD Primary Care Provider Allergies No known active allergies Medications Medication Sig Dispensed Refills Start Date End Date Status fluticasone (50 mcg Inhale 1 [place] 1 Bottle 2 11/19/2016 Active per actuation) [...] CDT Respiratory Rate 22 04/23/2014 10:29 AM FLIGHT STEWARD Oxygen Saturation 98% 11/19/2016 5:32 PM CDT Inhaled Oxygen Concentration - - Weight 86.9 kg (191 lb 9.6 oz) 11/19/2016 5:32 PM CDT Height 154.9 cm (5' 1) 04/23/2014 10:29 AM FLIGHT STEWARD Body Mass Index 36.2 04/23/2014 10:29 AM FLIGHT STEWARD Plan of Treatment Health Maintenance Due Date [...] Effective Dates Phone Addre ss Type Group [facility] [id number] 2018-Jie [place] [id number] [place] [address] [address]) [place] [address] Markus Esteves Personal/Family Self [address] (Home) [place] [address] Care Teams Transportation Security Officer Relationship Specialty Start Date End Date West Ospina MD PCP - General Obstetrics and Gynecology 04/28/14 200 [facility] [place] [address]
--- OUTSIDE RECORDS SUMMARY | 2022-01-10 11:14 | XMS_ITS | Encounter Summary ---
:1985 Author Organization [facility] Address [address] [place] [address] Care Team Providers Name Role Phone Elsewhere, Pcp Primary Care Provider Unavailable Encounter Details Date Type Department Care Team Description 07/05/2021 [facility] Sherly Thompson C ardiomyopathy AND CLINICS M.DTelma Peripartum [facility] Delivery (HCC) [place], [place] (Primary Dx ) [phone] Social History Tobacco Use Types Packs/Day Years [...] 09/19/2021 relatives? How often do you attend adventist or evangelical services? Never 09/19/2021 Do you belong to any clubs or organizations such as No 09/19/2021 adventist groups, unions, fraternal or athletic groups, or [...] Primary documented in this encounter Care Teams Sack Cleaner Relationship Specialty Start Date End Date Elsewhere, Pcp PCP - General Family Medicine 02/03/19 documented as of this encounter
--- OUTSIDE RECORDS SUMMARY | 2022-01-10 11:14 | XMS_ITS | Encounter Summary ---
:1985 Author Organization [facility] Address [address] [place] [address] Care Team Providers Name Role Phone Elsewhere, Pcp Primary Care Provider Unavailable Reason for Visit Auth/Cert Specialty Diagnoses / Procedures Referred By Contact Refer red To Contact Diagnoses Shortness Of Breath cariomegaly Procedures R06.02 (ICD-10-CM) - Shortness Of Breath DIR Referral ID Status Reason Start Date Expiration Date Visits Requ ested Visits Authorized [id number] 1 1 Encounter Details Date Type Department Care Team Description 02/02/2019 - Hospital Encounter [facility] Flaquito Rubio M.D., M.P.H. [address] [place] [phone] Shortness Of Breath 02/03/2019 [facility] Joey Freeman M.D. [address] [place] [address] (Primary Dx) [facility], Third Floor [address] [place] [phone] Social History Tobacco Use Types Packs/Day [...] 09/19/2021 relatives? How often do you attend hinduism or temple services? Never 09/19/2021 Do you belong to any clubs or organizations such as No 09/19/2021 hinduism groups, unions, fraternal or athletic groups, or [...] Comments Blood Pressure 134/83 02/03/2019 3:41 PM INSURANCE CODER Pulse 73 02/03/2019 3:41 PM INSURANCE CODER Temperature 36.6 ??C (97.9 ??F) 02/03/2019 3:41 PM INSURANCE CODER Respiratory Rate 22 02/03/2019 3:41 PM INSURANCE CODER Oxygen Saturation 97% 02/03/2019 3:41 PM INSURANCE CODER Inhaled Oxygen Concentration - - Weight 89.6 kg (197 lb 8.5 oz) 02/02/2019 10:13 PM INSURANCE CODER Height 154.9 cm (5' 1) 02/02/2019 10:13 PM INSURANCE CODER Body Mass Index 37.32 02/02/2019 10:13 PM INSURANCE CODER documented in this encounter Discharge Summaries Beth [...] delivery of a 38 1/7 weeks gestation who presented with shortness of breath for 1 day and viral URI symptoms for about a week. She had initially presented to an outside provider with these concerns and there was initial concernfor Peripartum Cardiomyopathy. A TTE was performed, but the read was initially unavailable, she was given 1 dose of Furosemide and she was then transferred and directly admitted to [facility] for further cares. On arrival here, [...] were provided to the patient and caregiver(s). RANCE CODER documented in this encounter Discharge Instructions Discharge InstructionsJulia Fischer - 02/03/2019 7:57 AM CST You were discharged from the [facility] Medicine 2 ([facility]) Service. Please identify this service name if you call with questions after hospitalization. RANCE CODER documented in this encounter Medications at Time [...] note that influenza and RSV were normal. RANCE CODER Eric Arthur M.D. - 02/02/2019 11:07 PM [...] her local doctor, who performed echocardiogram at [facility] that reportedly showed an EF of 50%. She was directed to the [place] [facility] where she had a CT-PE showing bilateral pleural effusion, nodular ground-glass opacities, and negative for PE. Chest x-ray showed mild cardiomegaly but was otherwise clear.She received a dose of IV furosemide before transfer to [facility]. Speaking with Mrs. Esteves on the floor, she states she was in her usual health before the onset of URI symptoms and subsequent dyspnea on exertion. She denies sick contacts and did receive her flu vaccine this year. She is originally from [place], immigrated to [place] at age 20. She was treated [...] to track down the outside echo at [facility], and consider performing one here if this proves troublesome or does not provide all the information we need. She did receive furosemide in [place] and we will monitor her clinical status for improvement. Overall, she looks well and I am r eassured that her symptoms are primarily with exertion. Finally, she is currently and this will need to be a consideration with her ultimate treatment regimen. Rest per Dr. Guan. RANCE CODER Nuvia Guan M.D. - 02/02/2019 10:02 PM CST SUBJECTIVE CHIEF COMPLAINT Ms. Markus Esteves is a 33 y.o. female who presents with shortness of breath. HISTORY OF PRESENT ILLNESS Ms. Esteves is a 33 year old woman with medical comorbidities of ovarian cancer s/p chemotherapy 2013who is day 5 from a C section delivery of a 38 1/7 weeks gestation infant now presenting with shortness of breath. She [...] file Gets together: Not on file Attends temple service: Not on file Active member of [...] - Monitor I/Os and diurese as needed RANCE CODER documented in this encounter Nursing Notes Gertrude Jung R.N. - 02/03/2019 5:06 PM CST Shift Goals: Clinical Goals for the Shift: Patient will discharge Identify possible barriers to meeting goals/advancing plan of care: none End of Shift Summary: Patient discharged home with family all questions answered. Gertrude Jung R.N. RANCE CODER documented in this encounter Miscellaneous Notes Hospital Course - Beth Reynolds M.D. - 02/03/2019 1:18 AM CST Ms. 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 She had initially presented to an outside provider with these concerns and there was initial concernfor Peripartum Cardiomyopathy. A TTE was performed, but the read was initially unavailable, she was given 1 dose of Furosemide and she was then transferred and directly admitted to [facility] for further cares. On arrival here, [...] was discharged in stable condition on 02/03/2019. RANCE CODER documented in this encounter Plan of Treatment Not on filedocumented as of this encounter Procedures Procedure Name Priority Date/Time Associated Comments Diagnosis ALBUMIN, RANDOM, U Routine 02/03/2019 5:06 Result s for PM INSURANCE CODER this procedure are in the results section. TROPONIN T, 5TH GEN, Timed 02/03/2019 12:24 Res ults for P PM INSURANCE CODER this procedure are in the results section. CBC WITHOUT Routine 02/03/2019 5:30 Results for DIFFERENTIAL, B AM INSURANCE CODER this procedu re are in the results section. BASIC METABOLIC Routine 02/03/2019 5:30 Results f or PANEL, S/P AM INSURANCE CODER this procedure are in the results section. ECG Routine 02/02/2019 11:27 Results for PM INSURANCE CODER this procedure are in the results section. NT-PRO B-TYPE Routine 02/02/2019 11:19 Results fo r NATRIURETIC PEPTIDE PM INSURANCE CODER this pro cedure (BNP), S are in the results section. CBC WITH Routine 02/02/2019 11:19 Results for DIFFERENTIAL, B PM INSURANCE CODER this procedu re are in the results section. TROPONIN T, 5TH GEN, Routine 02/02/2019 11:19 Res ults for P PM INSURANCE CODER this procedure are in the results section. BASIC METABOLIC Routine 02/02/2019 11:19 Results for PANEL, S/P PM INSURANCE CODER this procedure are in the results section. INTERPRETATION OF RAD - Routine 02/02/2019 11:16 Resul ts for OUTSIDE CT CHEST (most inpatients PM INSURANCE CODER this pr ocedure and all are in the outpatients) results section. INFLUENZA A/B AND Routine 02/02/2019 11:14 Result s for RSV, PCR PM INSURANCE CODER this procedure are in the results section. documented in this encounter Results Microalbumin, Random, Urine (02/03/2019 5:06 PM INSURANCE CODER) P athologist Signature Albumin, 14.0 mg/L 02/03/2019 CHRISTIANO Random, U 5:51 PM INSURANCE CODER Comment: ----ADDITIONAL INFORMATION---- This test has been modified from the man ufacturer's instructions. Its performance characteri stics were determined by [facility] in a manner co nsistent with CLIA requirements. This test has not bee n cleared or approved by the U.S. Food and Drug Admin istration. Creatinine 183 mg/dL 02/03/2019 5:51 PM INSURANCE CODER CHRISTIANO Albumin/Creatinine Ratio 8 <25 mg/g 02/03/2019 5:51 PM INSURANCE CODER CHRISTIANO Specimen Anatomical Collection Method Collection Time Receive d Time (Source) Location / / Volume Laterality Urine (Urine, 02/03/2019 5:06 PM 02/04/20 19 5:06 Clean Catch) INSURANCE CODER PM INSURANCE CODER Beth Reynolds M.D. LAB URINE ORDERABLES Performing Organization Address [facility] Phon e Number [facility] - [address] [place], [place] [address] [address] [place] [address] Troponin T, 5th Generation (02/03/2019 12:24 PM INSURANCE CODER) P athologist Signature Troponin T, 5th 9 <=10 ng/L 02/03/2019 [facility]ANCE COD[facility] Specimen Anatomical Collection Method Collection Time Receive d Time (Source) Location / / Volume Laterality Blood (Blood, 02/03/2019 12:24 02/03/2019 Venous) PM INSURANCE CODER 12:31 PM INSURANCE CODER Jose Spencer M.D. LAB BLOOD ADD-ON Performing Organization Address City/[facility] Phon e Number [facility] - [address] (ABNORMAL) CBC without Differential (02/03/2019 5:30 AM INSURANCE CODER) Patholo gist Method Time Signature Hemoglobin 10.4 (L) 11.6 - 02/03/2019 DTL 15.0 g/dL 6:11 AM INSURANCE CODER Hematocrit 32.6 (L) 35.5 - 02/03/2019 DTL 44.9 % 6:11 AM INSURANCE CODER Erythrocytes 3.75 (L) 3.92 - 02/03/2019 DTL 5.13 6:11 AM INSURANCE CODER x10(12)/L MCV 86.9 78.2 - 02/03/2019 DTL 97.9 fL 6:11 AM INSURANCE CODER RBC Distrib Width 15.5 12.2 - 02/03/2019 DTL 16.1 % 6:11 AM INSURANCE CODER Platelet Count 310 157 - 371 02/03/2019 DTL x10(9)/L 6:11 AM INSURANCE CODER Leukocytes 9.8 (H) 3.4 - 9.6 02/03/2019 DTL x10(9)/L 6:11 AM INSURANCE CODER Specimen Anatomical Collection Method Collection Time Receive d Time (Source) Location / / Volume Laterality Blood (Blood, 02/03/2019 5:30 AM 02/04/20 19 6:03 Venous) INSURANCE CODER AM INSURANCE CODER Nuvia Guan M.D., M.P.H. LAB BLOOD ADD-ON Performing Organization Address City/State/ZIP Code Phon e Number [facility] - [address] [place], [place] [address] [facility] [place] [address] [address] [address] (ABNORMAL) BMP (Basic Metabolic Panel) (02/03/2019 5:30 AM INSURANCE CODER) P athologist Signature Potassium, S 4.2 3.6 - 5.2 02/03/2019 DTL mmol/L 6:35 AM INSURANCE CODER Sodium, S 141 135 - 145 02/03/2019 DTL mmol/L 6:35 AM INSURANCE CODER Chloride, S 104 98 - 107 02/03/2019 DTL mmol/L 6:35 AM INSURANCE CODER Bicarbonate, S 23 22 - 29 02/03/2019 DTL mmol/L 6:35 AM INSURANCE CODER Anion Gap 14 7 - 15 02/03/2019 DTL 6:35 AM INSURANCE CODER BUN (Blood Urea 18 6 - 21 02/03/2019 DTL Nitrogen), S mg/dL 6:35 AM INSURANCE CODER Creatinine 0.86 0.59 - 02/03/2019 DTL 1.04 mg/dL 6:35 AM INSURANCE CODER eGFR-Non 88 >=60 02/03/2019 DTL Black/ mL/min/BSA 6:35 AM INSURANCE CODER Stateless Comment: ----ADDITIONAL INFORMATION---- Estimated GFR calculated using the 2009 CKD_EPI creatinine equation. eGFR-Black/ >90 >=60 mL/min/BSA 2018 6:35 AM INSURANCE CODER DTL Comment: ----ADDITIONAL INFORMATION---- Estimated GFR calculated using the 2009 CKD_EPI creatinine equation. Calcium, Total, S 8.4 (L) 8.6 - 10.0 mg/dL 02/03/2019 6:35 AM INSURANCE CODER DTL Glucose, S 84 70 - 140 mg/dL 02/03/2019 6:35 AM INSURANCE CODER D TL Specimen Anatomical Collection Method Collection Time Receive d Time (Source) Location / / Volume Laterality Blood (Blood, 02/03/2019 5:30 AM 02/04/20 19 6:03 Venous) INSURANCE CODER AM INSURANCE CODER Nuvia Guan M.D., M.P.H. LAB BLOOD ADD-ON Performing Organization Address City/[facility]/ZIP Code Phon e Number [facility] - [address] [place], [place] [address] [facility] [place] [address] [facility] 200 [facility] ECG 12 Lead (02/02/2019 11:27 PM INSURANCE CODER) P athologist Signature Ventricular Rate 76 BPM MUSE ECG/Min KS Interval 136 ms MUSE QRSD Interval 88 ms MUSE QT Interval 388 ms MUSE QTC Interval 436 ms MUSE P Trent 40 degrees MUSE R Trent 36 degrees MUSE T Wave Trent 33 degrees MUSE Specimen Anatomical Collection Method Collection Time Receive d Time (Source) Location / / Volume Laterality 02/02/2019 11:27 02/03/2019 5:37 PM INSURANCE CODER AM INSURANCE CODER Impressions MUSE - 02/03/2019 5:37 AM INSURANCE CODER Normal sinus rhythm Normal ECG No previous ECGs available Reviewed by RADHA Wells Narrative This result has an attachment that is no t available. Procedure Note Bharat Barone M.D., Ph.D. - 9 IMPRESSION: Normal sinus rhythm Normal ECG No previous ECGs available Reviewed by RADHA Wells Nuvia Guan M.D., M.P.H. ECG ORDERABLES Performing Organization Address City/[facility]/ZIP Code Phon e Number MUSE MUSE NA (ABNORMAL) NT-Pro B-Type Natriuretic Peptide (BNP) (02/02/2019 11:19 PM INSURANCE CODER) P athologist Signature NT-Pro BNP 1138 (H) <=140 pg/mL 02/03/2019 DT 12:39 AM INSURANCE CODER Comment: NT-proBNP values less than 300 pg/mL [...] Blood (Blood, 02/02/2019 11:19 02/02/2019 Venous) PM INSURANCE CODER 11:54 PM INSURANCE CODER Nuvia Guan M.D., M.P.H. LAB BLOOD ADD-ON Performing Organization Address City/State/[facility] Phon e Number [facility] - [address] [place] [address] [address] (ABNORMAL) Troponin T, 5th Generation (02/02/2019 11:19 PM INSURANCE CODER) P athologist Signature Troponin T, 5th 14 (H) <=10 ng/L 02/02/2019 [facility] gen 11:50 PM INSURANCE CODER Specimen Anatomical Collection Method Collection Time Receive d Time (Source) Location / / Volume Laterality Blood (Blood, 02/02/2019 11:19 02/02/2019 Venous) PM INSURANCE CODER 11:26 PM INSURANCE CODER Nuvia Guan M.D., M.P.H. LAB BLOOD ADD-ON Performing Organization Address City/[facility] Phon e Number [facility] - [address] [place] [address] Laboratories-[address] (ABNORMAL) CBC with Differential (02/02/2019 11:19 PM INSURANCE CODER) Patholo gist Method Time Signature Hemoglobin 11.5 (L) 11.6 - 02/03/2019 DTL 15.0 g/dL 12:01 AM INSURANCE CODER Hematocrit 36.4 35.5 - 02/03/2019 DTL 44.9 % 12:01 AM INSURANCE CODER Erythrocytes 4.19 3.92 - 02/03/2019 DTL 5.13 12:01 AM INSURANCE CODER x10(12)/L MCV 86.9 78.2 - 02/03/2019 DTL 97.9 fL 12:01 AM INSURANCE CODER RBC Distrib Width 15.3 12.2 - 02/03/2019 DTL 16.1 % 12:01 AM INSURANCE CODER Platelet Count 312 157 - 371 02/03/2019 DTL x10(9)/L 12:01 AM INSURANCE CODER Leukocytes 10.2 (H) 3.4 - 9.6 02/03/2019 DTL x10(9)/L 12:01 AM INSURANCE CODER Neutrophils 8.33 (H) 1.56 - 02/03/2019 DTL 6.45 12:01 AM INSURANCE CODER x10(9)/L Lymphocytes 1.01 0.95 - 02/03/2019 DTL 3.07 12:01 AM INSURANCE CODER x10(9)/L Monocytes 0.69 0.26 - 02/03/2019 DTL 0.81 12:01 AM INSURANCE CODER x10(9)/L Eosinophils 0.13 0.03 - 02/03/2019 DTL 0.48 12:01 AM INSURANCE CODER x10(9)/L Basophils <0.03 0.01 - 02/03/2019 DTL 0.08 12:01 AM INSURANCE CODER x10(9)/L Specimen Anatomical Collection Method Collection Time Receive d Time (Source) Location / / Volume Laterality Blood (Blood, 02/02/2019 11:19 02/02/2019 Venous) PM INSURANCE CODER 11:54 PM INSURANCE CODER Nuvia Guan M.D., M.P.H. LAB BLOOD ADD-ON Performing Organization Address City/State/ZIP Code Phon e Number [facility] - [address] [place], [place] [address] [facility] [place] [address] [facility] [address] (ABNORMAL) BMP (Basic Metabolic Panel) (02/02/2019 11:19 PM INSURANCE CODER) P athologist Signature Potassium, S 4.1 3.6 - 5.2 02/03/2019 DTL mmol/L 12:39 AM INSURANCE CODER Sodium, S 144 135 - 145 02/03/2019 DTL mmol/L 12:39 AM INSURANCE CODER Chloride, S 103 98 - 107 02/03/2019 DTL mmol/L 12:39 AM INSURANCE CODER Bicarbonate, S 22 22 - 29 02/03/2019 DTL mmol/L 12:39 AM INSURANCE CODER Anion Gap 19 (H) 7 - 15 02/03/2019 DTL 12:39 AM INSURANCE CODER BUN (Blood Urea 15 6 - 21 02/03/2019 DTL Nitrogen), S mg/dL 12:39 AM INSURANCE CODER Creatinine 0.82 0.59 - 02/03/2019 DTL 1.04 mg/dL 12:39 AM INSURANCE CODER eGFR-Non >90 >=60 02/03/2019 DTL Black/ mL/min/BSA 12:39 AM INSURANCE CODER Stateless Comment: ----ADDITIONAL INFORMATION---- Estimated GFR calculated using the 2009 CKD_EPI creatinine equation. eGFR-Black/ >90 >=60 mL/min/BSA 2018 12:39 AM INSURANCE CODER DTL Comment: ----ADDITIONAL INFORMATION---- Estimated GFR calculated using the 2009 CKD_EPI creatinine equation. Calcium, Total, S 8.7 8.6 - 10.0 mg/dL 02/03/2019 12:3 9 AM INSURANCE CODER DTL Glucose, S 95 70 - 140 mg/dL 02/03/2019 12:39 AM INSURANCE CODER DTL Specimen Anatomical Collection Method Collection Time Receive d Time (Source) Location / / Volume Laterality Blood (Blood, 02/02/2019 11:19 02/02/2019 Venous) PM INSURANCE CODER 11:54 PM INSURANCE CODER Nuvia Guan M.D., M.P.H. LAB BLOOD ADD-ON Performing Organization Address City/State/ZIP Code Phon e Number [facility] - [address] [place], [place] [address] [facility] [place] [address] [facility] [address] Interpretation of Outside CT Chest (02/02/2019 11:16 PM INSURANCE CODER) Anatomical Region Laterality Modality Chest, Thoracic RST LOS, Thoracic ARZ LOS, Thoracic N/A Computed Tomography FLA LOS Specimen (Source) Anatomical Collection Method Collection Time Re ceived Time Location / / Volume Laterality 02/02/2019 11:25 PM INSURANCE CODER Impressions 02/03/2019 6:24 AM INSURANCE CODER 1. Negative for acute pulmonary embolism. 2. Cardiomegaly with mild pulmonary shiraz a and small bilateral pleural effusions, greater on the right. 3. Indeterminate groundglass and solid n odular opacities, greater in the right lung. Findings may be infectious or infl ammatory. Narrative 02/03/2019 6:24 AM INSURANCE CODER EXAM: ??INTERPRETATION OF OUTSIDE CT CHEST 1. [...] Respiratory Syncytial Virus, PCR (02/02/2019 11:14 PM INSURANCE CODER) Component Value Ref Range Test Analysis Performed Pathologis t Method Time At Signature Specimen NASOPHARYNGEAL 02/03/2019 DTL Source SWAB 10:56 AM INSURANCE CODER Influenza A, Negative Negative 02/03/2019 DTL PCR 10:56 AM INSURANCE CODER Influenza B, Negative Negative 02/03/2019 DTL PCR 10:56 AM INSURANCE CODER Respiratory Negative Negative 02/03/2019 DTL Syncytial 10:56 AM Virus, PCR INSURANCE CODER Specimen Anatomical Collection Method Collection Time Receive d Time (Source) Location / / Volume Laterality Varies 02/02/2019 11:14 02/03/2019 7:27 (Nasopharynx) PM INSURANCE CODER AM INSURANCE CODER Nuvia Guan M.D., M.P.H. LAB MICROBIOLOGY - GENERAL ORDERABLES Performing Organization Address City/State/ZIP Code Phon e Number [facility] - [address] [place], [place] [address] [facility] [place] [address] [facility] [address] documented in this encounter Visit Diagnoses Diagnosis Dyspnea On Exertion - Primary Shortness Of Breath Resection Teratoma Status Post Personal History Shortness Of Breath documented in this encounter Admitting Diagnoses Diagnosis Shortness Of Breath documented in this encounter Administered Medications Inactive Administered Medications - up to 3 most recent administrations Medication Order MAR Action Action Date Dose Rate Site acetaminophen tablet 1,000 mg Given 02/03/2019 3:32 PM INSURANCE CODER 1,000 mg (TYLENOL) 1,000 mg, oral, Every 6 hours PRN, mild pain or score 1-3 of 10, Starting on Sat02/02/19 at 2256 Given 02/03/2019 8:10 AM INSURANCE CODER 1,000 mg docusate sodium capsule 100 mg (COLACE) 100 mg, oral, 2 times daily PRN, constip ation, Starting on Sat02/03/19 at 0755, Do NOT crush or chew. heparin (porcine) Given 02/03/2019 1:17 PM INSURANCE CODER 5,000 Units Right Lower injection 5,000 Units Abdomen 5,000 Units, subcutaneous, Every 8 hours scheduled, First dose on Sat02/03/19 at 0600 Given 02/03/2019 6:09 AM INSURANCE CODER 5,000 Units Left Upper Arm (Back) ibuprofen tablet 600 mg (ADVIL,MOTRIN) Given 02/03/2019 11:43 AM INSURANCE CODER 600 mg 600 mg, oral, Every 6 hours PRN, moderate pain or score 4-6 of 10, Starting on Sat02/03/19 at 0755, Take with food or milk if GI disturbances occur with use. documented in this encounter Active and Recently Administered Medications Times are shown in INSURANCE CODER. Scheduled Medication Order 02/01/2019 02/02/2019 02/03/2019 heparin (porcine) injection 5,000 Units 0609 (Given - Provider: So Luna RTelmaN.)1317 (Given - Provider: Vivi Guerra RLorena.) 5,000 [...] use. documented in this encounter Care Teams Mobility Specialist Relationship Specialty Start Date End Date Elsewhere, Pcp PCP - General Family Medicine 02/03/19 documented as of this encounter
--- OUTSIDE RECORDS SUMMARY | 2022-01-10 11:14 | XMS_ITS | Encounter Summary ---
:1985 Author Organization [facility] Address [address] [place] [address] Care Team Providers Name Role Phone Unavailable [...] How often do you attend caodaism or islam services? Never 09/19/2021 Do you belong to [...] place to sleep or slept in a prison (including now)? Sex Assigned at Date Recorded Female 09/19/2021 11:18 AM CDT documented as of this encounter Progress Notes Ramy Ospina M.D. - 04/23/2014 9:56 AM CST [id number] CHIEF COMPLAINT/REASON FOR VISIT Abdominal pain, nausea, [...] OSPINA MD On: 04/23/2014 11:23 AM Source: [facility] [email or web address] Document Id: [id number] EXPERT documented in this encounter Miscellaneous Notes Miscellaneous - Ramy Ospina M.D. - 04/23/2014 10:25 AM CST Ambulatory Patient Summary [facility] [address] [place] [phone] Visit Information Name: NICK BARAJAS [facility] Number: [id number] Current Date: 04/23/2014 10:25:14 [...] appointment detail needed. Your Goals/Additional instructions: Source: [facility] POWERCHART Document Id: [id number] EXPERT Miscellaneous - Ramy Ospina M.D. - 04/23/2014 10:25 AM CST Ambulatory Discharge Medication List [address] [phone] Visit Information Name: NICK BARAJAS [facility] Number: [id number] Visit Date: 04/23/2014 10:25:13 Attending Provider: RAMY OSPINA MD Primary Care Provider: PCP, UNASSIGNED - FB BARAJASJOSEVenancio has been given the following list of [...] MD Signed On:23-APR-2014 10:25:12 Additional Information: Source: [facility] POWERCHART Document Id: [id number] EXPERT documented in this encounter Plan of Treatment Not on filedocumented as of this encounter Visit Diagnoses Not on filedocumented in this encounter
--- OUTSIDE RECORDS SUMMARY | 2022-01-10 11:14 | XMS_ITS | Encounter Summary ---
:1985 Author Organization [facility] Address [address] [place] [address] Care Team Providers Name Role Phone Unavailable [...] 09/19/2021 relatives? How often do you attend latter-day or episcopalian services? Never 09/19/2021 Do you belong to any clubs or organizations such as No 09/19/2021 latter-day groups, unions, fraternal or athletic groups, or [...]
--- OUTSIDE RECORDS SUMMARY | 2022-01-10 11:14 | XMS_ITS | Encounter Summary ---
:1985 Author Organization [facility] Address [address] [place] [address] Care Team Providers Name Role Phone Unavailable [...] 09/19/2021 relatives? How often do you attend mormon or orthodox services? Never 09/19/2021 Do you belong to any clubs or organizations such as No 09/19/2021 mormon groups, unions, fraternal or athletic groups, or [...] Comments Blood Pressure 100/62 04/23/2014 2:23 PM PRINCIPAL PROCESS ENGINEER Pulse 76 04/23/2014 2:23 PM PRINCIPAL PROCESS ENGINEER Temperature - - Respiratory Rate - - Oxygen Saturation - - Inhaled Oxygen Concentration - - Weight 67.2 kg (148 lb 2.4 oz) 04/23/2014 2:23 PM PRINCIPAL PROCESS ENGINEER Height - - Body Mass Index - - documented in this encounter Progress Notes Ramy Ospina M.D. - 04/23/2014 2:18 PM CST [id number] CHIEF COMPLAINT/REASON FOR VISIT Ovarian cyst, emergency [...] symptoms have resolved. 12. I have contacted [facility] and scheduled patient for laparoscopy with possible laparotomy with possible ovarian cystectomy versus oophorectomy, as well as excision of mass on 05/06/2014. 13. Pain precautions reviewed with the patient. 14. I would like the patient to see Montessori Lead Teacher for assistance in applying for medical insurance. 15. I spent 30 minutes elih-se-sywc time with the patient, with over 50% of that time spent in counseling. Ramy Ospina M.D./oma Electronically Signed By: RAMY OSPINA MD On: 04/26/2014 08:16 AM Source: [facility] MHSDOLBEYNONRADSYS Document Id: [id number] CIPAL PROCESS ENGINEER documented in this encounter Miscellaneous Notes Miscellaneous - Ramy Ospina M.D. - 04/23/2014 2:58 PM CST Ambulatory Patient Summary [address] [id number] Visit Information Name: NICK BARAJAS [facility] Number: [id number] Current Date: 04/23/2014 14:58:01 Physicians Attending Provider: RAMY OSPINA MD Primary Care Provider: PCP, BRIA - NICK PERSAUD has been given the [...] Date Time Location Provider 05/03/2014 09:30 [facility] ACTUARY Ramy Ospina MD Attention: Contact your local Clinic if further appointment detail needed. Your Goals/Additional instructions: Source: [facility] POWERCHART Document Id: [id number] CIPAL PROCESS ENGINEER Miscellaneous - Ramy Ospina M.D. - 04/23/2014 2:58 PM CST Ambulatory Discharge Medication List [address] [id number] Visit Information Name: NICK BARAJAS [facility] Number: [id number] Visit Date: 04/23/2014 14:58:01 Attending Provider: RAMY OSPINA MD Primary Care Provider: PCP, BRIA - NICK PERSAUD has been given the [...] MD Signed On:23-APR-2014 14:57:59 Additional Information: Source: [facility] POWERCHART Document Id: [id number] CIPAL PROCESS ENGINEER Miscellaneous - Isacc Wisdom, L.P.N. - 04/23/2014 2:23 PM CST Adult First Leveler Intake/History Adult First Leveler Intake/History Entered On: 04/23/2014 14:25 PRINCIPAL PROCESS ENGINEER Performed On: 04/23/2014 14:23 PRINCIPAL PROCESS ENGINEER by ISACC WISDOM LPN Intake Chief Complaint [...] kg ISACC WISDOM LPN - 04/23/2014 14:23 PRINCIPAL PROCESS ENGINEER General Info Information Given By : Patient Languages : Estonian Is Patient Female and 13-50 no hysterectomy : Yes Status : Patient denies Are you ? : No ISACC WISDOM LPN - 04/23/2014 14:23 PRINCIPAL PROCESS ENGINEER Subjective Pain Symptoms : No ISACC WISDOM LPN - 04/23/2014 14:23 PRINCIPAL PROCESS ENGINEER Dependent Habits Tobacco Use/Currently Using : No Exposure to Tobacco Smoke : Other: Never Smoking Status : Never smoker ISACC WISDOM LPN - 04/23/2014 14:23 PRINCIPAL PROCESS ENGINEER ID Screen Drug Resistant Organism : No Travel Within Last 21 Days : No ISACC WISDOM LPN - 04/23/2014 14:23 PRINCIPAL PROCESS ENGINEER Source: [facility] Historic Futures Document Id: [id number] PRINCIPAL PROCESS ENGINEER!28 CIPAL PROCESS ENGINEER documented in this encounter Plan of Treatment Not on filedocumented as of this encounter Visit Diagnoses Not on filedocumented in this encounter
--- OUTSIDE RECORDS SUMMARY | 2022-01-10 11:14 | XMS_ITS | Encounter Summary ---
:1985 Author Organization [facility] Address [address] [place] [address] Care Team Providers Name Role Phone Unavailable [...] 09/19/2021 relatives? How often do you attend jehovah's witness or advent services? Never 09/19/2021 Do you belong to any clubs or organizations such as No 09/19/2021 jehovah's witness groups, unions, fraternal or athletic groups, or [...] Comments Blood Pressure 104/74 04/14/2014 2:57 PM PLASTER HELPER Pulse 74 04/14/2014 2:57 PM PLASTER HELPER Temperature - - Respiratory Rate - - Oxygen Saturation - - Inhaled Oxygen Concentration - - Weight 67.5 kg (148 lb 13 oz) 04/14/2014 2:57 PM PLASTER HELPER Height - - Body Mass Index - - documented in this encounter Progress Notes Ramy Ospina M.D. - 04/14/2014 2:53 PM CST [id number] CHIEF COMPLAINT/REASON FOR VISIT Ovarian cyst. HISTORY OF PRESENT ILLNESS This patient presents for FOOD SELECTOR consult from Dr. Rivera of [facility]. This is her first visit to [facility]. She is a 28-year-old G0, P0, female with LMP of 04/05/2014. The patient presents for FOOD SELECTOR consult from Dr. Rivera. She was seen [...] much improved. The patient now presents for FOOD SELECTOR consult. She reports that she has had [...] for assistance, as well as to social studies teacher to help apply for medical insurance. 8. [...] would like the patient to see social studies teacher, too for assistance, as mentioned above. 14. I spent 30 minutes zzky-bq-mnhv time with patient with over 50% of that time spent in counseling. Ramy Ospina M.D./oma Electronically Signed By: RAMY OSPINA MD On: 04/15/2014 10:41 AM Source: [facility] MHSDOLBEYNONRADSYS Document Id: [id number] TER HELPER documented in this encounter Miscellaneous Notes Miscellaneous - Ramy Ospina M.D. - 04/14/2014 5:38 PM CST Ambulatory Discharge Medication List [address] [id number] Visit Information Name: NICK BARAJAS [facility] Number: [id number] Visit Date: 04/14/2014 17:38:33 Attending [...] MD Signed On:14-APR-2014 17:38:32 Additional Information: Source: [facility] POWERCHART Document Id: [id number] TER HELPER Miscellaneous - Ramy Ospina M.D. - 04/14/2014 5:38 PM CST Ambulatory Patient Summary [address] [id number] Visit Information Name: NICK BARAJAS [facility] Number: [id number] Current Date: 04/14/2014 17:38:34 Physicians [...] appointment detail needed. Your Goals/Additional instructions: Source: [facility] Blekko Document Id: [id number] TER HELPER Miscellaneous - Isacc Wisdom L.PTelmaN. - 04/14/2014 2:57 PM CST Adult Clutch Rebuilder Intake/History Adult Clutch Rebuilder Intake/History Entered On: 04/14/2014 15:00 PLASTER HELPER Performed On: 04/14/2014 14:57 PLASTER HELPER by ISACC WISDOM LPN Intake Chief Complaint [...] kg ISACC WISDOM LPN - 04/14/2014 14:57 PLASTER HELPER General Info Information Given By : Patient Languages : Guinean Is Patient Female and 13-50 no hysterectomy : Yes Status : Patient denies Are you ? : No ISACC WISDOM LPN - 04/14/2014 14:57 PLASTER HELPER Subjective Pain Symptoms : No ISACC WISDOM LPN - 04/14/2014 14:57 PLASTER HELPER Dependent Habits Tobacco Use/Currently Using : No Exposure to Tobacco Smoke : Other: Never Smoking Status : Never smoker ISACC WISDOM LPN - 04/14/2014 14:57 PLASTER HELPER ID Screen Drug Resistant Organism : No Travel Within Last 21 Days : No ISACC WISDOM LPN - 04/14/2014 14:57 PLASTER HELPER Source: [facility] Spring MetricsCHART Document Id: [id number] PLASTER HELPER!27 TER HELPER documented in this encounter Plan of Treatment Not on filedocumented as of this encounter Visit Diagnoses Not on filedocumented in this encounter
--- OUTSIDE RECORDS SUMMARY | 2022-01-10 11:14 | XMS_ITS | Encounter Summary ---
:1985 Author Organization [facility] Address [address] [place] [address] Care Team Providers Name Role Phone Unavailable [...] How often do you attend cheondoism or mormonism services? Never 09/19/2021 Do you [...] place to sleep or slept in a fdc (including now)? Sex Assigned at Date Recorded Female 09/19/2021 11:18 AM CDT documented as of this encounter Plan of Treatment Not on filedocumented as of this encounter Visit Diagnoses Not on filedocumented in this encounter
--- OUTSIDE RECORDS SUMMARY | 2022-01-10 11:14 | XMS_ITS | Encounter Summary ---
:1985 Author Organization [facility] Address [address] [place] [address] Care Team Providers Name Role Phone Unavailable [...] 09/19/2021 relatives? How often do you attend religion or orthodox services? Never 09/19/2021 Do you belong to any clubs or organizations such as No 09/19/2021 religion groups, unions, fraternal or athletic groups, or [...] place to sleep or slept in a long-term (including now)? Sex Assigned at Date Recorded [...] Chorionic Gonadotropin), Quantitative, (09/01/2014 11:05 AM CDT) [facility] gist Method Time Signature HCG, <0.5 <5.0 [facility] Quantitative, Negative; LABORATORIES - , S 5.0-25.0 [facility] Indeterminat CAMPUS e; >25.0 Positive IU/L Specimen Anatomical Collection Method Collection Time Receive d Time (Source) Location / / Volume Laterality 09/01/2014 11:05 09/01/2014 AM CDT 11:05 AM CDT Chapito Thomson M.D. LAB BLOOD ADD-ON Performing Organization Address City/State/ZIP Code Phon e Number [facility] LABORATORIES - [address] [place], [place] [address] [facility] Inhibin A and B, Tumor Marker (09/01/2014 11:05 AM CDT) athologist Signature Inhibin A, 6.3 <97.5 [facility] Tumor Marker, (Premenopa LABORATORIES - S usal); [facility] <2.1 CAMPUS (Postmenop ausal) PG/ML Comment: ? ADDITIONAL INFORMATIO N ? The testing method is an immunoenzymatic assay ? manufactured by [employer]. and performed ? on the UniCel DxI [...] ? Inhibin B, S 17 SeeComment PG/ML [facility] Comment: ? REFERENCE VALUE------ ? <139 (Premenopausal, Follicular) ? <92 (Premenopausal, Luteal) ? <10 (Postmenopausal) ? ADDITIONAL INFORMATIO N ? The testing method is a manual immunoenz ymatic assay manufactured by [employer] ??Values obtained with diff erent assay [...] City/State/ZIP Code Phon e Number [facility] LABORATORIES - [address] [place], [place] [address] [facility] (ABNORMAL) AFP (Alpha-Fetoprotein), Tumor Marker (09/01/2014 11:05 AM CDT) [facility] gist Method Time Signature Alpha-Fetopro 407 (H) SeeComment [facility] tein, Tumor NG/ML LABORATORIES - Marker, S [facility] Comment: ? REFERENCE VALUE------ ? [...] City/State/ZIP Code Phon e Number [facility] LABORATORIES - [address] [place], [place] [address] [facility] LD (Lactate Dehydrogenase) (09/01/2014 10:46 AM CDT) [facility] gist Method Time Signature Lactate 181 122 - 222 [facility] Dehydrogenase U/L LABORATORIES - (LD), S [facility] Specimen Anatomical Collection Method Collection Time Receive d Time (Source) Location / / Volume Laterality 09/01/2014 10:46 09/01/2014 AM CDT 10:46 AM CDT Chapito Thomson M.D. LAB BLOOD NON ADD-ON Performing Organization Address City/State/ZIP Code Phon e Number [facility] - [address] [place], [place] [address] [facility] Hx general Pathology Report (09/01/2014 9:00 AM CDT) Specimen Anatomical Collection Method Collection Time Receive d Time (Source) Location / / Volume Laterality 09/01/2014 9:00 AM 201 5 9:00 CDT AM CDT Narrative [facility] - [facility] - 09/01/2014 9:00 AM CDT ??09/01/2014 Surgical Pathology ?([id number]) ? Requested By: Ramon Rodriguez M.D. ? ?[id number] ? SLIDE DISPOSITION: ? DIAGNOSIS: ?? A. [...] ?? Participated in interpretation: ??Shirin Jolley M.D. [phone] and Stu Mariee M.D. [phone] ? Seen in consultation with Dr. Rodolfo [...] 09/07/2014 12:44 Interpreted by: Julio Dennis M.D. [id number] Report electronically signed by Julio Dennis M.D. [...] with scant calcifications. ??No papillary excrescence identified. ??Auto Repair Technician sections a re submitted. ??Grossed by /[facility]. ?? B. Received fresh labeled left ovarian mass is a 65.9 gram, 8.8 x 6.8 x 2.4 cm holt-pink biloculated cyst. ??The specimen is deflated and displays a smooth surface. ??Openin g reveals one cyst containing sanguinous fluid and contains the holt-g reen debris, bezoar, fat and skin. ??No papillary excrescences are g rossly identified. ?? Auto Repair Technician sections are submitted. ??Grossed [facility]. ?? C. Received fresh labeled left ovarian mass #2 is a 6.2 gram, 4.9 x 3.2 x 1.5 cm deflated unilocular cyst . ??Opening reveals holt-sierra grumous material and a bezoar. ??No pap illary excrescences are identified. ??Auto Repair Technician sections a re submitted. ??Grossed by [facility]. ? BLOCK SUMMARY: Part A: ??Right ovarian [...] ? Procedure Note 05/25/2017 09/01/2014 Surgical Pathology ([id number]) Requested By: Ramon Rodriguez M.D. [id number] SLIDE DISPOSITION: DIAGNOSIS: A. Ovary, right mass, [...] dimension. Participated in interpretation: Klaudia Jolley M.D. [phone] and Stu Mariee M.D. [phone] Seen in consultation with Dr. Rodolfo jackson. [...] Cancer Protocol. 09/07/2014 12:44 Interpreted by: Julio eDnnis M.D. [id number] Report electronically signed by Julio [...] scant calcifications. No p apillary excrescence identified. Auto Repair Technician sections are submitted. Grossed by /[facility]. B. Received fresh labeled left ovarian mass is a 65.9 gram, 8.8 x 6.8 x 2.4 cm holt-pink biloculated cyst. The specimen is deflated and displays a smooth surface. Opening reveals one cyst containing sanguinous fluid and contains the holt-g reen debris, bezoar, fat and skin. No papillary excrescences are carole ssly identified. Auto Repair Technician sections are submitted. Grossed [facility]. C. Received fresh labeled left ovarian mass #2 is a 6.2 gram, 4.9 x 3.2 x 1.5 cm deflated unilocular cyst . Opening reveals holt-sierra grumous material and a bezoar. No papil fay excrescences are identified. Auto Repair Technician sections are submitted. Grossed by [facility]. BLOCK SUMMARY: Part A: Right ovarian mass [...] City/State/ZIP Code Phon e Number [facility] LABORATORIES - [address] [place], [place] [address] [facility] documented in this encounter Visit Diagnoses Not on filedocumented in this encounter
--- OUTSIDE RECORDS SUMMARY | 2022-01-10 11:14 | XMS_ITS | Encounter Summary ---
:1985 Author Organization [facility] Address [address] [place] [address] Care Team Providers Name Role Phone Unavailable [...] 09/19/2021 relatives? How often do you attend confucianism or taoist services? Never 09/19/2021 Do you belong to any clubs or organizations such as No 09/19/2021 confucianism groups, unions, fraternal or athletic groups, or [...] to sleep or slept in a senior care (including now)? Sex Assigned at Date Recorded Female 09/19/2021 11:18 AM CDT documented as of this encounter Last Filed Vital Signs Vital Sign Reading Time Taken Comments Blood Pressure 112/78 05/03/2014 9:26 AM BOTTOM TURNING LATHE TENDER Pulse 72 05/03/2014 9:26 AM BOTTOM TURNING LATHE TENDER Temperature - - Respiratory Rate - - Oxygen Saturation - - Inhaled Oxygen Concentration - - Weight 66.7 kg (147 lb 0.8 oz) 05/03/2014 9:26 AM BOTTOM TURNING LATHE TENDER Height - - Body Mass Index - - documented in this encounter Progress Notes Ramy Patterson M.D. - 05/03/2014 9:19 AM CST [id number] CHIEF COMPLAINT/REASON FOR VISIT Pelvic mass. HISTORY [...] and her are requesting a consult to [facility] to see a specialty clinic for evaluation and management. They would like to have surgery at [facility]. I feel this is very reasonable given her situation and the elevated CA-125 value. I discussed the possibility of laparoscopy with possible laparotomy. Instead of having this done at our [facility] the patient would like to go to [facility] which I feel it is very reasonable. [...] PATTERSON MD On: 05/03/2014 02:34 PM Source: [facility] MHSDOLBEYNONRADSYS Document Id: [id number] OM TURNING LATHE TENDER documented in this encounter Miscellaneous Notes Telephone [...] patient. She is requesting another consult to [place]. Her prior consult was closed due to insurance reasons and now she has insurance and wants to be seen in [place]. Consult placed. Addendum by RAMY PATTERSON MD [...] like to do? From: GREG WOOTEN ( [place] [employer] Consultant) To: Obstetrics/Gynecology Nurse; Sent: 05/11/2014 10:19:20 CDT Subject: *Phone Message/dr patterson Caller is: ( x ) Patient ( ) Mother ( ) Father ( ) Spouse ( ) Daughter ( ) Son ( ) Pharmacy ( ) Other: Physician: Patient MRN #: Reason for Call: S needs another referral sent to [facility] can call [phone] Message: Advice/Action: Source used: ( ) Verbalizes [...] back cell phone number ( ) Source: [facility] Mobule Document Id: [id number] Miscellaneous - Ramy Patterson M.D. - 05/03/2014 9:58 AM CST Ambulatory Patient Summary [address] [id number] Visit Information Name: NICK BARAJAS [facility] Number: [id number] Current Date: 05/03/2014 09:58:59 Physicians Attending Provider: RAMY PATTERSON MD Primary Care Provider: PCP, UNASSIGNED - NICK BARAJAS has been given the following [...] appointment detail needed. Your Goals/Additional instructions: Source: [employer] Document Id: [id number] Ramy Harris M.D. - 05/03/2014 9:58 AM CST Ambulatory Discharge Medication List [address] [id number] Visit Information Name: NICK BARAJAS [facility] Number: [id number] Visit Date: 05/03/2014 09:58:58 Attending [...] MD Signed On:03-MAY-2014 09:58:56 Additional Information: Source: [employer] Document Id: [id number] [place] - Caroline Wisdom L.P.N. - 05/03/2014 9:26 AM CST Adult Flight Surveyor Intake/History Adult Flight Surveyor Intake/History Entered On: 05/03/2014 9:27 BOTTOM TURNING LATHE TENDER Performed On: 05/03/2014 9:26 BOTTOM TURNING LATHE TENDER by CAROLINE WISDOM LPN Intake Chief Complaint [...] kg CAROLINE WISDOM LPN - 05/03/2014 9:26 BOTTOM TURNING LATHE TENDER General Info Information Given By : Patient Languages : Austrian Is Patient Female and 13-50 no hysterectomy : Yes Status : Patient denies Are you ? : No CAROLINE WISDOM LPN - 05/03/2014 9:26 BOTTOM TURNING LATHE TENDER Subjective Pain Symptoms : No CAROLINE WISDOM LPN - 05/03/2014 9:26 BOTTOM TURNING LATHE TENDER Dependent Habits Tobacco Use/Currently Using : No Exposure to Tobacco Smoke : Other: Never Smoking Status : Never smoker CAROLINE WISDOM LPN - 05/03/2014 9:26 BOTTOM TURNING LATHE TENDER ID Screen Drug Resistant Organism : No Travel Within Last 21 Days : No Contact with someone with Ebola : No CAROLINE WSIDOM LPN - 05/03/2014 9:26 BOTTOM TURNING LATHE TENDER Source: [facility] POWERCHART Document Id: [id number] BOTTOM TURNING LATHE TENDER!29 OM TURNING LATHE TENDER documented in this encounter Plan of Treatment Not on filedocumented as of this encounter Visit Diagnoses Not on filedocumented in this encounter
--- OUTSIDE RECORDS SUMMARY | 2022-01-10 11:14 | XMS_ITS | Encounter Summary ---
:1985 Author Organization [facility] Address [address] [place] [address] Care Team Providers Name Role Phone Unavailable Primary Care Provider Unavailable Encounter Details Date Type Department Care Team Description 02/02/2019 Ancillary Procedure Department of Radiology Amara Arthur in [facility] aileen Cormier [address] [facility] [address] [place] [id number] (Wo rk) Social History Tobacco Use Types [...] How often do you attend shinto or holiness services? Never 09/19/2021 Do you belong to [...] for OUTSIDE CT CHEST (most inpatients PM SHANK FAKER this pr ocedure and all are in the outpatients) results section. documented in this encounter Results Interpretation of Outside CT Chest (02/02/2019 11:16 PM SHANK FAKER) Anatomical Region Laterality Modality Chest, Thoracic RST LOS, Thoracic ARZ LOS, Thoracic N/A Computed Tomography FLA LOS Specimen (Source) Anatomical Collection Method Collection Time Re ceived Time Location / / Volume Laterality 02/02/2019 11:25 PM SHANK FAKER Impressions 02/03/2019 6:24 AM SHANK FAKER 1. Negative for acute pulmonary embolism. 2. Cardiomegaly with mild pulmonary shiraz a and small bilateral pleural effusions, greater on the right. 3. Indeterminate groundglass and solid n odular opacities, greater in the right lung. Findings may be infectious or infl ammatory. Narrative 02/03/2019 6:24 AM SHANK FAKER EXAM: ??INTERPRETATION OF OUTSIDE CT CHEST 1. [...]
[2022-01-11 11:43] LABS: Strep B DNA Probe NEGATIVE (Negative)
[2022-01-13 03:06] LABS: Strep B Pen/Amox Allergy No
== END 2022-01-10 10:50 | disposition home or self-care (01) ==
LOC: NFLDREF 10:49
PROVIDERS: PCP Family Medicine; Visit Provider Obstetrics & Gynecology
DX: Z34.83 Encounter for supervision of other normal pregnancy, third trimester (principal); Z3A.36 36 weeks gestation of pregnancy
CPT/HCPCS: 76816; 87081; 87653

== ENCOUNTER 2022-01-28 09:11 | Inpatient (IN) | payer OTHER, SELFPAY ==
[2022-01-28] VITALS (34 sets, daily range): BP systolic 105–128; BP diastolic 57–81; PULSE 74–106; RESP 14–18; TEMP 36.6–37.1; O2SAT 96–100; BMI 40.8
--- OUTSIDE RECORDS SUMMARY | 2022-01-28 07:31 | XMS_ITS | Encounter Summary ---
:1985 Author Organization [facility] Address [address] [place] [address] Care Team Providers Name Role Phone Unavailable [...] How often do you attend sabianist or roman catholic services? Never 09/19/2021 Do you belong to [...] place to sleep or slept in a intermediate (including now)? Sex Assigned at Date Recorded Female 09/19/2021 11:18 AM CDT documented as of this encounter Last Filed Vital Signs Vital Sign Reading Time Taken Comments Blood Pressure 104/74 04/14/2014 2:57 PM CASSANDRA ARCHITECT Pulse 74 04/14/2014 2:57 PM CASSANDRA ARCHITECT Temperature - - Respiratory Rate - - Oxygen Saturation - - Inhaled Oxygen Concentration - - Weight 67.5 kg (148 lb 13 oz) 04/14/2014 2:57 PM CASSANDRA ARCHITECT Height - - Body Mass Index - - documented in this encounter Progress Notes Ramy Ospina M.D. - 04/14/2014 2:53 PM CST [id number] CHIEF COMPLAINT/REASON FOR VISIT Ovarian cyst. HISTORY OF PRESENT ILLNESS This patient presents for POLICY SPECIALIST consult from Dr. [facility]Rvera of [facility]. This is her first visit to [facility]. She is a 28-year-old G0, P0, female with LMP of 04/05/2014. The patient presents for POLICY SPECIALIST consult from Dr. Rivera. She was seen [...] much improved. The patient now presents for POLICY SPECIALIST consult. She reports that she has had [...] office for assistance, as well as to director social service to help apply for medical insurance. 8. [...] I would like the patient to see director social service, too for assistance, as mentioned above. 14. I spent 30 minutes [id number] time with patient with over 50% of that time spent in counseling. Ramy Ospina M.D./oma Electronically Signed By: RAMY OSPINA MD On: 04/15/2014 10:41 AM Source: [facility] MHSDOLBEYNONRADSYS Document Id: [id number] ANDRA ARCHITECT documented in this encounter Miscellaneous Notes Miscellaneous - Ramy Ospina M.D. - 04/14/2014 5:38 PM CST Ambulatory Discharge Medication List [address] [id number] Visit Information Name: NICK BARAJAS [facility] Number: [id number] Visit Date: 04/14/2014 17:38:33 Attending [...] MD Signed On:14-APR-2014 17:38:32 Additional Information: Source: [facility] POWERCHART Document Id: [id number] ANDRA ARCHITECT Miscellaneous - Ramy Ospina M.D. - 04/14/2014 5:38 PM CST Ambulatory Patient Summary [address] [id number] Visit Information Name: NICK BARAJAS [facility] Number: [id number] Current Date: 04/14/2014 17:38:34 Physicians Attending Provider: RAMY OSPINA MD Primary Care Provider: PCP, UNASSIGNED - YURIDIA CASTROJOSE URENAVenancio has been given the following list of [...] Your Goals/Additional instructions: Source: [facility] MindEdge Document Id: [id number] ANDRA ARCHITECT Miscellaneous - Isacc Wisdom L.P.N. - 04/14/2014 2:57 PM CST Adult Clinical Resource Nurse Intake/History Adult Clinical Resource Nurse Intake/History Entered On: 04/14/2014 15:00 CASSANDRA ARCHITECT Performed On: 04/14/2014 14:57 CASSANDRA ARCHITECT by ISACC WISDOM LPN Intake Chief Complaint [...] kg ISACC WISDOM LPN - 04/14/2014 14:57 CASSANDRA ARCHITECT General Info Information Given By : Patient Languages : Occitan Is Patient Female and 13-50 no hysterectomy : Yes Status : Patient denies Are you ? : No ISACC WISDOM LPN - 04/14/2014 14:57 CASSANDRA ARCHITECT Subjective Pain Symptoms : No ISACC WISDOM LPN - 04/14/2014 14:57 CASSANDRA ARCHITECT Dependent Habits Tobacco Use/Currently Using : No Exposure to Tobacco Smoke : Other: Never Smoking Status : Never smoker ISACC WISDOM LPN - 04/14/2014 14:57 CASSANDRA ARCHITECT ID Screen Drug Resistant Organism : No Travel Within Last 21 Days : No ISACC WISDOM LPN - 04/14/2014 14:57 CASSANDRA ARCHITECT Source: [facility] [employer] Document Id: [id number] CASSANDRA ARCHITECT!27 ANDRA ARCHITECT documented in this encounter Plan of Treatment Not on filedocumented as of this encounter Visit Diagnoses Not on filedocumented in this encounter
--- OUTSIDE RECORDS SUMMARY | 2022-01-28 07:31 | XMS_ITS | Encounter Summary ---
:1985 Author Organization [facility] Address [address] [place] [id number] Care Team Providers Name Role Phone Elsewhere, Pcp Primary Care Provider Unavailable Reason for Visit Appointment Request (Routine) - Closed Specialty Diagnoses / Procedures Referred By Contact Refer red To Contact Maternal and Diagnoses Maternal Care For Known Or Suspected Abnormality And Damage NOS Sherly Thompson M.D. Medicine [address] [place] [address] Referral ID Status Reason Start Date Expiration Date Visits Requ ested Visits Authorized [id number] Closed 08/07/2021 08/07/2022 1 1 Encounter Details Date Type Department Care Team Description 09/19/2021 Routine Department of Radha Goddard Obstetrics and [place] Maternal Age Affecting Gynecology in [address] [place] [address] Management [place], [place] ([facility]) (Primary Dx) [address] [place] [id number] [place], [place] [phone] (Work) [phone] Social History Tobacco Use Types Packs/Day Years [...] How often do you attend mormon or gnosticism services? Never 09/19/2021 Do you [...] slept in a nursing home (including now)? Education Answer Date Recorded What [...] Body Mass Index 38.7 02/02/2019 10:13 PM SORT WORKER documented in this encounter Consult Notes Debby Goddard M.D. - 09/19/2021 3:00 PM CDT SUBJECTIVE Markus Esteves is a 35 y.o. at 19w4d. Estimated Date of Delivery: 02/05/22 is determined by LMP consistent with 8 week ultrasound. She is here today for consultation from [facility] to issues as listed below. HISTORY OF [...] tumors s/p resection and BEP chemotherapy in 2014 - graduated from oncology [employer] [facility] 3. History of CD x 1 [...] 35 y/o @ 20w1d who presents for [facility] consultation due to above issues. Anatomy ultrasound [...] Debby Goddard M.D. MFM Fellow PGY-6 Pager [phone] documented in this encounter Plan of Treatment Not on filedocumented as of this encounter Visit Diagnoses Diagnosis Multigravida Advanced Maternal Age Affec ting Management (HCC) - Primary documented in this encounter Care Teams Rn Homecare Relationship Specialty Start Date End Date Elsewhere, Pcp PCP - General Family Medicine 02/03/19 documented as of this encounter
--- OUTSIDE RECORDS SUMMARY | 2022-01-28 07:31 | XMS_ITS | Encounter Summary ---
:1985 Author Organization [facility] Address [address] [place] [address] Care Team Providers Name Role Phone Unavailable Primary Care Provider Unavailable Encounter Details Date Type Department Care Team Description 02/02/2019 Ancillary Procedure Department of Radiology Amara Arthur in [facility] aileen Cormier [address] [facility] [address] [place] [phone] (Wo rk) Social History Tobacco Use Types [...] 09/19/2021 relatives? How often do you attend mormonism or moravian services? Never 09/19/2021 Do you belong to any clubs or organizations such as No 09/19/2021 mormonism groups, unions, fraternal or athletic groups, or [...] place to sleep or slept in a alf (including now)? Sex Assigned at Date Recorded Female 09/19/2021 11:18 AM CDT documented as of this encounter Plan of Treatment Not on filedocumented as of this encounter Procedures Procedure Name Priority Date/Time Associated Comments Diagnosis INTERPRETATION OF RAD - Routine 02/02/2019 11:16 Resul ts for OUTSIDE CT CHEST (most inpatients PM UI DEVELOPER DESIGNER this pr ocedure and all are in the outpatients) results section. documented in this encounter Results Interpretation of Outside CT Chest (02/02/2019 11:16 PM UI DEVELOPER DESIGNER) Anatomical Region Laterality Modality Chest, Thoracic RST LOS, Thoracic ARZ LOS, Thoracic N/A Computed Tomography FLA LOS Specimen (Source) Anatomical Collection Method Collection Time Re ceived Time Location / / Volume Laterality 02/02/2019 11:25 PM UI DEVELOPER DESIGNER Impressions 02/03/2019 6:24 AM UI DEVELOPER DESIGNER 1. Negative for acute pulmonary embolism. 2. Cardiomegaly with mild pulmonary shiraz a and small bilateral pleural effusions, greater on the right. 3. Indeterminate groundglass and solid n odular opacities, greater in the right lung. Findings may be infectious or infl ammatory. Narrative 02/03/2019 6:24 AM UI DEVELOPER DESIGNER EXAM: ??INTERPRETATION OF OUTSIDE CT CHEST 1. [...]
--- OUTSIDE RECORDS SUMMARY | 2022-01-28 07:31 | XMS_ITS | Clinical Summary ---
:1985 Demographics Address [address] [facility] [place] [address] Home Phone Phone Preferred Language Syriac Marital Status Unknown Shinto Affiliation Unknown Race Ethnic Group Not or Author Organization [facility] [place] [address] Care Team Providers Name Role Phone West Ospina MD Primary Care Provider Allergies No known active allergies Medications Medication Sig Dispensed Refills Start Date End Date Status fluticasone (50 mcg Inhale 1 [place] 1 Bottle 2 11/19/2016 Active per actuation) [...] CDT Respiratory Rate 22 04/23/2014 10:29 AM LEGAL RESEARCH ANALYST Oxygen Saturation 98% 11/19/2016 5:32 PM CDT Inhaled Oxygen Concentration - - Weight 86.9 kg (191 lb 9.6 oz) 11/19/2016 5:32 PM CDT Height 154.9 cm (5' 1) 04/23/2014 10:29 AM LEGAL RESEARCH ANALYST Body Mass Index 36.2 04/23/2014 10:29 AM LEGAL RESEARCH ANALYST Plan of Treatment Health Maintenance Due Date [...] Effective Dates Phone Addre ss Type Group [facility] [id number] 2018-Jie [place] [id number] [place] [address] [address]) [place] [address] Markus Esteves Personal/Family Self [address] (Home) [place] [address] Care Teams Archery Equipment Repairer Relationship Specialty Start Date End Date West Ospina MD PCP - General Obstetrics and Gynecology 04/28/14 [address] [facility] [place] [address]
--- OUTSIDE RECORDS SUMMARY | 2022-01-28 07:31 | XMS_ITS | Encounter Summary ---
:1985 Author Organization [facility] Address [address] [place] [address] Care Team Providers Name Role Phone Elsewhere, Pcp Primary Care Provider Unavailable Encounter Details Date Type Department Care Team Description 09/19/2021 Hospital Encounter Department of Sherly Thompson Super vision Of Other Obstetrics and M.D. High Risk Gynecology in [address] [facility] Pregnancies [place], [place], [place] Unspecified [place] [address] Trimester (HCC) [address] [phone] [place], [place] (Work) [phone] Social History Tobacco Use Types Packs/Day Years [...] How often do you attend voodoo or confucianist services? Never 09/19/2021 Do you belong to [...] place to sleep or slept in a group home (including now)? Education Answer Date Recorded [...] chewable tablet Take 1 tablet by 0 tgvirgh-It-xace-FA (VINATE mouth daily. ONE) 60 mg iron-1 [...] LEVEL SINGLETO N AND TRANSVAGINAL Exam Site: [facility] OB #2 Plurality: 1 OBHx: [G:(2)] [...] Cookie Rosa R.D.M.S. on 09/19/2021 3:09:13 PM. Fur Nailer: ??Cookie Rosa R.D. M.S. Thank You For This Referral Procedure Note Rodolfo Woodruff M.B.BTelmaSTelma, Casa - 09/19 NICK BARAJAS OB Exam, 09/19/2021 EXAM INFORMATION Patient Name: NICK BARAJAS : 1985 Age: 35 yrs Sex: Female Ref Phys: JESSE OSEI Exam Date: 09/19/2021 Procedure: US OB ADVANCED LEVEL SINGLETO N AND TRANSVAGINAL Exam Site: [facility] OB #2 Plurality: 1 OBHx: [G:(2)] [...] Cookie Rosa R.D.M.S. on 09/19/2021 3:09:13 PM. Fur Nailer: Cookie Rosa R.D.M. S. Thank You For This Referral Jesse Osei M.D. IMG OB US PROCEDURES documented in this encounter Visit Diagnoses Diagnosis Supervision Of Other High Risk Pregnanci es Unspecified Trimester (HCC) documented in this encounter Care Teams Crepe Sole Wire Brusher Relationship Specialty Start Date End Date Elsewhere, Pcp PCP - General Family Medicine 02/03/19 documented as of this encounter
--- OUTSIDE RECORDS SUMMARY | 2022-01-28 07:31 | XMS_ITS | Encounter Summary ---
:1985 Author Organization [facility] Address [address] [place] [address] Care Team Providers Name Role Phone Unavailable [...] 09/19/2021 relatives? How often do you attend sikh or restoration services? Never 09/19/2021 Do you belong to any clubs or organizations such as No 09/19/2021 sikh groups, unions, fraternal or athletic groups, or [...] Ospina M.D. - 04/23/2014 9:56 AM CST [id number] CHIEF COMPLAINT/REASON FOR VISIT Abdominal pain, nausea, [...] OSPINA MD On: 04/23/2014 11:23 AM Source: [facility] MHSDOLBEYNONRADSYS Document Id: [id number] D PLANT OPERATOR documented in this encounter Miscellaneous Notes Miscellaneous - Ramy Ospina M.D. - 04/23/2014 10:25 AM CST Ambulatory Patient Summary [address] [id number] Visit Information Name: KARL NICK [facility] Number: [id number] Current Date: 04/23/2014 10:25:14 [...] appointment detail needed. Your Goals/Additional instructions: Source: [facility] POWERCHART Document Id: [id number] D PLANT OPERATOR Miscellaneous - Ramy Ospina M.D. - 04/23/2014 10:25 AM CST Ambulatory Discharge Medication List [address] [id number] Visit Information Name: NICK BARAJAS [facility] Number: [id number] Visit Date: 04/23/2014 10:25:13 [...] MD Signed On:23-APR-2014 10:25:12 Additional Information: Source: [facility] POWERCHART Document Id: [id number] D PLANT OPERATOR documented in this encounter Plan of Treatment Not on filedocumented as of this encounter Visit Diagnoses Not on filedocumented in this encounter
--- OUTSIDE RECORDS SUMMARY | 2022-01-28 07:31 | XMS_ITS | Encounter Summary ---
:1985 Author Organization [facility] Address [address] [place] [address] Care Team Providers Name Role Phone Elsewhere, Pcp Primary Care Provider Unavailable Reason for Visit Auth/Cert Specialty Diagnoses / Procedures Referred By Contact Refer red To Contact Diagnoses Shortness Of Breath cariomegaly Procedures R06.02 (ICD-10-CM) - Shortness Of Breath DIR Referral ID Status Reason Start Date Expiration Date Visits Requ ested Visits Authorized [id number] 1 1 Encounter Details Date Type Department Care Team Description 02/02/2019 - Hospital Encounter [facility] Flaquito Rubio M.D., M.P.H. [address] [place] [phone] Shortness Of Breath 02/03/2019 [facility] Joey Freeman M.D. [address] [place] [phone] (Primary Dx) [facility], Third Floor [address] [place] [phone] Social History Tobacco Use Types Packs/Day Years [...] 09/19/2021 relatives? How often do you attend moravian or sikh services? Never 09/19/2021 Do you belong to any clubs or organizations such as No 09/19/2021 moravian groups, unions, fraternal or athletic groups, or [...] Comments Blood Pressure 134/83 02/03/2019 3:41 PM LATEX FOAM WORKER Pulse 73 02/03/2019 3:41 PM LATEX FOAM WORKER Temperature 36.6 ??C (97.9 ??F) 02/03/2019 3:41 PM LATEX FOAM WORKER Respiratory Rate 22 02/03/2019 3:41 PM LATEX FOAM WORKER Oxygen Saturation 97% 02/03/2019 3:41 PM LATEX FOAM WORKER Inhaled Oxygen Concentration - - Weight 89.6 kg (197 lb 8.5 oz) 02/02/2019 10:13 PM LATEX FOAM WORKER Height 154.9 cm (5' 1) 02/02/2019 10:13 PM LATEX FOAM WORKER Body Mass Index 37.32 02/02/2019 10:13 PM LATEX FOAM WORKER documented in this encounter Discharge Summaries Beth [...] was then transferred and directly admitted to [facility] for further cares. On arrival here, [...] were provided to the patient and caregiver(s). X FOAM WORKER documented in this encounter Discharge Instructions Discharge InstructionsJulia Fischer - 02/03/2019 7:57 AM CST You were discharged from the [facility] Medicine 2 ([facility]) Service. Please identify this service name if you call with questions after hospitalization. X FOAM WORKER documented in this encounter Medications at Time [...] note that influenza and RSV were normal. X FOAM WORKER Eric Arthur M.D. - 02/02/2019 11:07 PM [...] her local doctor, who performed echocardiogram at [facility] that reportedly showed an EF of 50%. She was directed to the [place] [facility] where she had a CT-PE showing bilateral pleural effusion, nodular ground-glass opacities, and negative for PE. Chest x-ray showed mild cardiomegaly but was otherwise clear.She received a dose of IV furosemide before transfer to [facility]. Speaking with Mrs. Esteves on the floor, she states she was in her usual health before the onset of URI symptoms and subsequent dyspnea on exertion. She denies sick contacts and did receive her flu vaccine this year. She is originally from [place], [place], immigrated to [place] at age 20. She was treated [...] to track down the outside echo at [facility], and consider performing one here if this proves troublesome or does not provide all the information we need. She did receive furosemide in [place] and we will monitor her clinical status for improvement. Overall, she looks well and I am r eassured that her symptoms are primarily with exertion. Finally, she is currently and this will need to be a consideration with her ultimate treatment regimen. Rest per Dr. Guan. X FOAM WORKER Nuvia Guan M.D. - 02/02/2019 10:02 PM [...] file Gets together: Not on file Attends sikh service: Not on file Active member of [...] infant now presenting with shortness of breath. #1 [...] - Monitor I/Os and diurese as needed X FOAM WORKER documented in this encounter Nursing Notes Gertrude Jung R.N. - 02/03/2019 5:06 PM CST Shift Goals: Clinical Goals for the Shift: Patient will discharge Identify possible barriers to meeting goals/advancing plan of care: none End of Shift Summary: Patient discharged home with family all questions answered. Gertrude Jung R.N. X FOAM WORKER documented in this encounter Miscellaneous Notes Hospital [...] was then transferred and directly admitted to [facility] for further cares. On arrival here, [...] was discharged in stable condition on 02/03/2019. X FOAM WORKER documented in this encounter Plan of Treatment Not on filedocumented as of this encounter Procedures Procedure Name Priority Date/Time Associated Comments Diagnosis ALBUMIN, RANDOM, U Routine 02/03/2019 5:06 Result s for PM LATEX FOAM WORKER this procedure are in the results section. TROPONIN T, 5TH GEN, Timed 02/03/2019 12:24 Res ults for P PM LATEX FOAM WORKER this procedure are in the results section. CBC WITHOUT Routine 02/03/2019 5:30 Results for DIFFERENTIAL, B AM LATEX FOAM WORKER this procedu re are in the results section. BASIC METABOLIC Routine 02/03/2019 5:30 Results f or PANEL, S/P AM LATEX FOAM WORKER this procedure are in the results section. ECG Routine 02/02/2019 11:27 Results for PM LATEX FOAM WORKER this procedure are in the results section. NT-PRO B-TYPE Routine 02/02/2019 11:19 Results fo r NATRIURETIC PEPTIDE PM LATEX FOAM WORKER this pro cedure (BNP), S are in the results section. CBC WITH Routine 02/02/2019 11:19 Results for DIFFERENTIAL, B PM LATEX FOAM WORKER this procedu re are in the results section. TROPONIN T, 5TH GEN, Routine 02/02/2019 11:19 Res ults for P PM LATEX FOAM WORKER this procedure are in the results section. BASIC METABOLIC Routine 02/02/2019 11:19 Results for PANEL, S/P PM LATEX FOAM WORKER this procedure are in the results section. INTERPRETATION OF RAD - Routine 02/02/2019 11:16 Resul ts for OUTSIDE CT CHEST (most inpatients PM LATEX FOAM WORKER this pr ocedure and all are in the outpatients) results section. INFLUENZA A/B AND Routine 02/02/2019 11:14 Result s for RSV, PCR PM LATEX FOAM WORKER this procedure are in the results section. documented in this encounter Results Microalbumin, Random, Urine (02/03/2019 5:06 PM LATEX FOAM WORKER) P athologist Signature Albumin, 14.0 mg/L 02/03/2019 CHRISTIANO Random, U 5:51 PM LATEX FOAM WORKER Comment: ----ADDITIONAL INFORMATION---- This test has been modified from the man ufactangelr's instructions. Its performance characteri stics were determined by [facility] in a manner co nsistent with CLIA requirements. This test has not bee n cleared or approved by the U.S. Food and Drug Admin istration. Creatinine 183 mg/dL 02/03/2019 5:51 PM LATEX FOAM WORKER CHRISTIANO Albumin/Creatinine Ratio 8 <25 mg/g 02/03/2019 5:51 PM LATEX FOAM WORKER CHRISTIANO Specimen Anatomical Collection Method Collection Time Receive d Time (Source) Location / / Volume Laterality Urine (Urine, 02/03/2019 5:06 PM 02/04/20 19 5:06 Clean Catch) LATEX FOAM WORKER PM LATEX FOAM WORKER Beth Reynolds M.D. LAB URINE ORDERABLES Performing Organization Address City/[facility] Phon e Number [facility] - [address] [id number] [address] [place] [address] Laboratories[address] Troponin T, 5th Generation (02/03/2019 12:24 PM LATEX FOAM WORKER) P athologist Signature Troponin T, 5th 9 <=10 ng/L 02/03/2019 STMA gen 12:56 PM LATEX FOAM WORKER Specimen Anatomical Collection Method Collection Time Receive d Time (Source) Location / / Volume Laterality Blood (Blood, 02/03/2019 12:24 02/03/2019 Venous) PM LATEX FOAM WORKER 12:31 PM LATEX FOAM WORKER Jose Spencer M.D. LAB BLOOD ADD-ON Performing Organization Address City/[facility] Phon e Number [facility] - [address] (ABNORMAL) CBC without Differential (02/03/2019 5:30 AM LATEX FOAM WORKER) Patholo gist Method Time Signature Hemoglobin 10.4 (L) 11.6 - 02/03/2019 DTL 15.0 g/dL 6:11 AM LATEX FOAM WORKER Hematocrit 32.6 (L) 35.5 - 02/03/2019 DTL 44.9 % 6:11 AM LATEX FOAM WORKER Erythrocytes 3.75 (L) 3.92 - 02/03/2019 DTL 5.13 6:11 AM LATEX FOAM WORKER x10(12)/L MCV 86.9 78.2 - 02/03/2019 DTL 97.9 fL 6:11 AM LATEX FOAM WORKER RBC Distrib Width 15.5 12.2 - 02/03/2019 DTL 16.1 % 6:11 AM LATEX FOAM WORKER Platelet Count 310 157 - 371 02/03/2019 DTL x10(9)/L 6:11 AM LATEX FOAM WORKER Leukocytes 9.8 (H) 3.4 - 9.6 02/03/2019 DTL x10(9)/L 6:11 AM LATEX FOAM WORKER Specimen Anatomical Collection Method Collection Time Receive d Time (Source) Location / / Volume Laterality Blood (Blood, 02/03/2019 5:30 AM 02/04/20 19 6:03 Venous) LATEX FOAM WORKER AM LATEX FOAM WORKER Nuvia Guan M.D., M.P.H. LAB BLOOD ADD-ON Performing Organization Address City/State/ZIP Code Phon e Number [facility] - [address] [place], [place] [address] [facility] [place] [address] Laboratories-[facility] [address] (ABNORMAL) BMP (Basic Metabolic Panel) (02/03/2019 5:30 AM LATEX FOAM WORKER) P athologist Signature Potassium, S 4.2 3.6 - 5.2 02/03/2019 DTL mmol/L 6:35 AM LATEX FOAM WORKER Sodium, S 141 135 - 145 02/03/2019 DTL mmol/L 6:35 AM LATEX FOAM WORKER Chloride, S 104 98 - 107 02/03/2019 DTL mmol/L 6:35 AM LATEX FOAM WORKER Bicarbonate, S 23 22 - 29 02/03/2019 DTL mmol/L 6:35 AM LATEX FOAM WORKER Anion Gap 14 7 - 15 02/03/2019 DTL 6:35 AM LATEX FOAM WORKER BUN (Blood Urea 18 6 - 21 02/03/2019 DTL Nitrogen), S mg/dL 6:35 AM LATEX FOAM WORKER Creatinine 0.86 0.59 - 02/03/2019 DTL 1.04 mg/dL 6:35 AM LATEX FOAM WORKER eGFR-Non 88 >=60 02/03/2019 DTL Black/ mL/min/BSA 6:35 AM LATEX FOAM WORKER [place] Comment: ----ADDITIONAL INFORMATION---- Estimated GFR calculated using the 2009 CKD_EPI creatinine equation. eGFR-Black/ >90 >=60 mL/min/BSA 2018 6:35 AM LATEX FOAM WORKER DTL Comment: ----ADDITIONAL INFORMATION---- Estimated GFR calculated using the 2009 CKD_EPI creatinine equation. Calcium, Total, S 8.4 (L) 8.6 - 10.0 mg/dL 02/03/2019 6:35 AM LATEX FOAM WORKER DTL Glucose, S 84 70 - 140 mg/dL 02/03/2019 6:35 AM LATEX FOAM WORKER D TL Specimen Anatomical Collection Method Collection Time Receive d Time (Source) Location / / Volume Laterality Blood (Blood, 02/03/2019 5:30 AM 02/04/20 19 6:03 Venous) LATEX FOAM WORKER AM LATEX FOAM WORKER Nuvia Guan M.D., M.P.H. LAB BLOOD ADD-ON Performing Organization Address City/State/ZIP Code Phon e Number [facility] - [address] [place], [place] [address] [facility] [place] [address] Laboratories-[facility] [address] ECG 12 Lead (02/02/2019 11:27 PM LATEX FOAM WORKER) P athologist Signature Ventricular Rate 76 BPM MUSE ECG/Min VT Interval 136 ms MUSE QRSD Interval 88 ms MUSE QT Interval 388 ms MUSE QTC Interval 436 ms MUSE P Cooper 40 degrees MUSE R Cooper 36 degrees MUSE T Wave Cooper 33 degrees MUSE Specimen Anatomical Collection Method Collection Time Receive d Time (Source) Location / / Volume Laterality 02/02/2019 11:27 02/03/2019 5:37 PM LATEX FOAM WORKER AM LATEX FOAM WORKER Impressions MUSE - 02/03/2019 5:37 AM LATEX FOAM WORKER Normal sinus rhythm Normal ECG No previous ECGs available Reviewed by RADHA Wells Narrative This result has an attachment that is no t available. Procedure Note Bharat Barone M.D., Ph.D. - 9 IMPRESSION: Normal sinus rhythm Normal ECG No previous ECGs available Reviewed by RADHA Wells Nuvia Guan M.D., M.P.H. ECG ORDERABLES Performing Organization Address City/[facility]/ZIP Code Phon e Number MUSE MUSE NA (ABNORMAL) NT-Pro B-Type Natriuretic Peptide (BNP) (02/02/2019 11:19 PM LATEX FOAM WORKER) athologist Signature NT-Pro BNP 1138 (H) <=140 pg/mL 02/03/2019 DTL 12:39 AM LATEX FOAM WORKER Comment: NT-proBNP values less than 300 pg/mL [...] Blood (Blood, 02/02/2019 11:19 02/02/2019 Venous) PM LATEX FOAM WORKER 11:54 PM LATEX FOAM WORKER Nuvia Guan M.D., M.P.H. LAB BLOOD ADD-ON Performing Organization Address City/State/[facility] Phon e Number [facility] - [address] [place] [address] Laboratories[address] (ABNORMAL) Troponin T, 5th Generation (02/02/2019 11:19 PM LATEX FOAM WORKER) P athologist Signature Troponin T, 5th 14 (H) <=10 ng/L [facility] LATEX FOAM WORKER Specimen Anatomical Collection Method Collection Time Receive d Time (Source) Location / / Volume Laterality Blood (Blood, 02/02/2019 11:19 02/02/2019 Venous) PM LATEX FOAM WORKER 11:26 PM LATEX FOAM WORKER Nuvia Guan M.D., M.P.H. LAB BLOOD ADD-ON Performing Organization Address City/[facility] Phon e Number [facility] - [address] [place], [place] [address] [place], [place] [address] [place] [address] (ABNORMAL) CBC with Differential (02/02/2019 11:19 PM LATEX FOAM WORKER) Patholo gist Method Time Signature Hemoglobin 11.5 (L) 11.6 - 02/03/2019 DTL 15.0 g/dL 12:01 AM LATEX FOAM WORKER Hematocrit 36.4 35.5 - 02/03/2019 DTL 44.9 % 12:01 AM LATEX FOAM WORKER Erythrocytes 4.19 3.92 - 02/03/2019 DTL 5.13 12:01 AM LATEX FOAM WORKER x10(12)/L MCV 86.9 78.2 - 02/03/2019 DTL 97.9 fL 12:01 AM LATEX FOAM WORKER RBC Distrib Width 15.3 12.2 - 02/03/2019 DTL 16.1 % 12:01 AM LATEX FOAM WORKER Platelet Count 312 157 - 371 02/03/2019 DTL x10(9)/L 12:01 AM LATEX FOAM WORKER Leukocytes 10.2 (H) 3.4 - 9.6 02/03/2019 DTL x10(9)/L 12:01 AM LATEX FOAM WORKER Neutrophils 8.33 (H) 1.56 - 02/03/2019 DTL 6.45 12:01 AM LATEX FOAM WORKER x10(9)/L Lymphocytes 1.01 0.95 - 02/03/2019 DTL 3.07 12:01 AM LATEX FOAM WORKER x10(9)/L Monocytes 0.69 0.26 - 02/03/2019 DTL 0.81 12:01 AM LATEX FOAM WORKER x10(9)/L Eosinophils 0.13 0.03 - 02/03/2019 DTL 0.48 12:01 AM LATEX FOAM WORKER x10(9)/L Basophils <0.03 0.01 - 02/03/2019 DTL 0.08 12:01 AM LATEX FOAM WORKER x10(9)/L Specimen Anatomical Collection Method Collection Time Receive d Time (Source) Location / / Volume Laterality Blood (Blood, 02/02/2019 11:19 02/02/2019 Venous) PM LATEX FOAM WORKER 11:54 PM LATEX FOAM WORKER Nuvia Guan M.D., M.P.H. LAB BLOOD ADD-ON Performing Organization Address City/State/ZIP Code Phon e Number [facility] - [address] [place], [place] [address] [facility] [place] [address] Laboratories-[facility] [address] (ABNORMAL) BMP (Basic Metabolic Panel) (02/02/2019 11:19 PM LATEX FOAM WORKER) P athologist Signature Potassium, S 4.1 3.6 - 5.2 02/03/2019 DTL mmol/L 12:39 AM LATEX FOAM WORKER Sodium, S 144 135 - 145 02/03/2019 DTL mmol/L 12:39 AM LATEX FOAM WORKER Chloride, S 103 98 - 107 02/03/2019 DTL mmol/L 12:39 AM LATEX FOAM WORKER Bicarbonate, S 22 22 - 29 02/03/2019 DTL mmol/L 12:39 AM LATEX FOAM WORKER Anion Gap 19 (H) 7 - 15 02/03/2019 DTL 12:39 AM LATEX FOAM WORKER BUN (Blood Urea 15 6 - 21 02/03/2019 DTL Nitrogen), S mg/dL 12:39 AM LATEX FOAM WORKER Creatinine 0.82 0.59 - 02/03/2019 DTL 1.04 mg/dL 12:39 AM LATEX FOAM WORKER eGFR-Non >90 >=60 02/03/2019 DTL Black/ mL/min/BSA 12:39 AM LATEX FOAM WORKER [place] Comment: ----ADDITIONAL INFORMATION---- Estimated GFR calculated using the 2009 CKD_EPI creatinine equation. eGFR-Black/ >90 >=60 mL/min/BSA 2018 12:39 AM LATEX FOAM WORKER DTL Comment: ----ADDITIONAL INFORMATION---- Estimated GFR calculated using the 2009 CKD_EPI creatinine equation. Calcium, Total, S 8.7 8.6 - 10.0 mg/dL 02/03/2019 12:3 9 AM LATEX FOAM WORKER DTL Glucose, S 95 70 - 140 mg/dL 02/03/2019 12:39 AM LATEX FOAM WORKER DTL Specimen Anatomical Collection Method Collection Time Receive d Time (Source) Location / / Volume Laterality Blood (Blood, 02/02/2019 11:19 02/02/2019 Venous) PM LATEX FOAM WORKER 11:54 PM LATEX FOAM WORKER Nuvia Guan M.D., M.P.H. LAB BLOOD ADD-ON Performing Organization Address City/State/ZIP Code Phon e Number [facility] - [address] [place], [place] [address] [facility] [place] [address] Laboratories-[facility] [address] Interpretation of Outside CT Chest (02/02/2019 11:16 PM LATEX FOAM WORKER) Anatomical Region Laterality Modality Chest, Thoracic RST LOS, Thoracic ARZ LOS, Thoracic N/A Computed Tomography FLA LOS Specimen (Source) Anatomical Collection Method Collection Time Re ceived Time Location / / Volume Laterality 02/02/2019 11:25 PM LATEX FOAM WORKER Impressions 02/03/2019 6:24 AM LATEX FOAM WORKER 1. Negative for acute pulmonary embolism. 2. Cardiomegaly with mild pulmonary shiraz a and small bilateral pleural effusions, greater on the right. 3. Indeterminate groundglass and solid n odular opacities, greater in the right lung. Findings may be infectious or infl ammatory. Narrative 02/03/2019 6:24 AM LATEX FOAM WORKER EXAM: ??INTERPRETATION OF OUTSIDE CT CHEST 1. [...] Respiratory Syncytial Virus, PCR (02/02/2019 11:14 PM LATEX FOAM WORKER) Component Value Ref Range Test Analysis Performed Pathologis t Method Time At Signature Specimen NASOPHARYNGEAL 02/03/2019 DTL Source SWAB 10:56 AM LATEX FOAM WORKER Influenza A, Negative Negative 02/03/2019 DTL PCR 10:56 AM LATEX FOAM WORKER Influenza B, Negative Negative 02/03/2019 DTL PCR 10:56 AM LATEX FOAM WORKER Respiratory Negative Negative 02/03/2019 DTL Syncytial 10:56 AM Virus, PCR LATEX FOAM WORKER Specimen Anatomical Collection Method Collection Time Receive d Time (Source) Location / / Volume Laterality Varies 02/02/2019 11:14 02/03/2019 7:27 (Nasopharynx) PM LATEX FOAM WORKER AM LATEX FOAM WORKER Nuvia Guan M.D., M.P.H. LAB MICROBIOLOGY - GENERAL ORDERABLES Performing Organization Address City/State/ZIP Code Phon e Number [facility] - [address] [place], [place] [address] [facility] [place] [address] [facility] [address] documented in [...] tablet 1,000 mg Given 02/03/2019 3:32 PM LATEX FOAM WORKER 1,000 mg (TYLENOL) 1,000 mg, oral, Every 6 hours PRN, mild pain or score 1-3 of 10, Starting on Sat02/02/19 at 2256 Given 02/03/2019 8:10 AM LATEX FOAM WORKER 1,000 mg docusate sodium capsule 100 mg (COLACE) 100 mg, oral, 2 times daily PRN, constip ation, Starting on Sat02/03/19 at 0755, Do NOT crush or chew. heparin (porcine) Given 02/03/2019 1:17 PM LATEX FOAM WORKER 5,000 Units Right Lower injection 5,000 Units Abdomen 5,000 Units, subcutaneous, Every 8 hours scheduled, First dose on Sat02/03/19 at 0600 Given 02/03/2019 6:09 AM LATEX FOAM WORKER 5,000 Units Left Upper Arm (Back) ibuprofen tablet 600 mg (ADVIL,MOTRIN) Given 02/03/2019 11:43 AM LATEX FOAM WORKER 600 mg 600 mg, oral, Every 6 hours PRN, moderate pain or score 4-6 of 10, Starting on Sat02/03/19 at 0755, Take with food or milk if GI disturbances occur with use. documented in this encounter Active and Recently Administered Medications Times are shown in LATEX FOAM WORKER. Scheduled Medication Order 02/01/2019 02/02/2019 02/03/2019 heparin [...] (ADVIL,MOTRIN) 1143 (Given - Provider: Vivi Guerra RTelmaN.) 600 mg, oral, Every 6 hours PRN, moderat e pain or score 4-6 of 10, Starting on Sat02/03/19 at 0755, Take with food or milk if GI disturbances occur with use. documented in this encounter Care Teams Coal Mill Operator Relationship Specialty Start Date End Date Elsewhere, Pcp PCP - General Family Medicine 02/03/19 documented as of this encounter
--- OUTSIDE RECORDS SUMMARY | 2022-01-28 07:31 | XMS_ITS | Encounter Summary ---
:1985 Author Organization [facility] Address [address] [place] [address] Care Team Providers Name Role Phone Unavailable [...] 09/19/2021 relatives? How often do you attend religious or moravian services? Never 09/19/2021 Do you belong to any clubs or organizations such as No 09/19/2021 religious groups, unions, fraternal or athletic groups, or [...] place to sleep or slept in a mcc (including now)? Sex Assigned at Date Recorded Female 09/19/2021 11:18 AM CDT documented as of this encounter Plan of Treatment Not on filedocumented as of this encounter Visit Diagnoses Not on filedocumented in this encounter
--- OUTSIDE RECORDS SUMMARY | 2022-01-28 07:31 | XMS_ITS | Encounter Summary ---
:1985 Author Organization [facility] Address [address] [place] [address] Care Team Providers Name Role Phone Elsewhere, Pcp Primary Care Provider Unavailable Encounter Details Date Type Department Care Team Description 07/05/2021 [facility] Sherly Thompson C ardiomyopathy AND CLINICS M.DTelma Peripartum [facility] Delivery (HCC) [place], [place] (Primary Dx ) [phone] Social History Tobacco Use Types Packs/Day Years [...] 09/19/2021 relatives? How often do you attend congregational or anglican services? Never 09/19/2021 Do you belong to any clubs or organizations such as No 09/19/2021 congregational groups, unions, fraternal or athletic groups, or [...] Primary documented in this encounter Care Teams Sludge Filtration Attendant Relationship Specialty Start Date End Date Elsewhere, Pcp PCP - General Family Medicine 02/03/19 documented as of this encounter
--- OUTSIDE RECORDS SUMMARY | 2022-01-28 07:31 | XMS_ITS | Encounter Summary ---
:1985 Author Organization [facility] Address [address] [place] [address] Care Team Providers Name Role Phone Unavailable [...] 09/19/2021 relatives? How often do you attend rastafarian or orthodoxy services? Never 09/19/2021 Do you belong to any clubs or organizations such as No 09/19/2021 rastafarian groups, unions, fraternal or athletic groups, or [...] Comments Blood Pressure 112/78 05/03/2014 9:26 AM KNOT SAW OPERATOR Pulse 72 05/03/2014 9:26 AM KNOT SAW OPERATOR Temperature - - Respiratory Rate - - Oxygen Saturation - - Inhaled Oxygen Concentration - - Weight 66.7 kg (147 lb 0.8 oz) 05/03/2014 9:26 AM KNOT SAW OPERATOR Height - - Body Mass Index - - documented in this encounter Progress Notes Ramy Patterson M.D. - 05/03/2014 9:19 AM CST [id number] CHIEF COMPLAINT/REASON FOR VISIT Pelvic mass. HISTORY [...] and her are requesting a consult to [facility] to see a specialty clinic for evaluation and management. They would like to have surgery at [facility]. I feel this is very reasonable given her situation and the elevated CA-125 value. I discussed the possibility of laparoscopy with possible laparotomy. Instead of having this done at our [facility] the patient would like to go to [facility] which I feel it is very [...] MD On: 05/03/2014 02:34 PM Source: [facility] MHSDOLBEYNONRADSYS Document Id: [id number] SAW OPERATOR documented in this encounter Miscellaneous Notes Telephone [...] patient. She is requesting another consult to [place]. Her prior consult was closed due to insurance reasons and now she has insurance and wants to be seen in [place]. Consult placed. Addendum by RAMY PATTERSON MD [...] like to do? From: GREG WOOTEN ( Spring Mechanical Car Checker) To: Obstetrics/Gynecology Nurse; Sent: 05/11/2014 10:19:20 CDT Subject: *Phone Message/dr patterson Caller is: ( x ) Patient ( ) Mother ( ) Father ( ) Spouse ( ) Daughter ( ) Son ( ) Pharmacy ( ) Other: Physician: Patient MRN #: Reason for Call: S needs another referral sent to Meera Yanez can call [phone] Message: Advice/Action: Source used: ( ) Verbalizes [...] back cell phone number ( ) [facility] Document Id: [id number] Miscellaneous - Ramy Patterson M.D. - 05/03/2014 9:58 AM CST Ambulatory Patient Summary [address] [id number] Visit Information Name: NICK BARAJAS [facility] Number: [id number] Current Date: 05/03/2014 09:58:59 Physicians [...] appointment detail needed. Your Goals/Additional instructions: Source: [employer] Document Id: [id number] Ramy Harris M.D. - 05/03/2014 9:58 AM CST Ambulatory Discharge Medication List [address] [id number] Visit Information Name: NICK BARAJAS [facility] Number: [id number] Visit Date: 05/03/2014 09:58:58 Attending Provider: RAMY PATTERSON MD Primary Care Provider: PCP, UNASSIGNED - FB KARL JOSEVenancio has been given the following list of [...] MD Signed On:03-MAY-2014 09:58:56 Additional Information: Source: [employer] Document Id: [id number] Pelletier - Caroline Wisdom L.P.N. - 05/03/2014 9:26 AM CST Adult Spanish Lecturer Intake/History Adult Spanish Lecturer Intake/History Entered On: 05/03/2014 9:27 KNOT SAW OPERATOR Performed On: 05/03/2014 9:26 KNOT SAW OPERATOR by CAROLINE WISDOM LPN Intake Chief Complaint [...] kg CAROLINE WISDOM LPN - 05/03/2014 9:26 KNOT SAW OPERATOR General Info Information Given By : Patient Languages : Mongolian Is Patient Female and 13-50 no hysterectomy : Yes Status : Patient denies Are you ? : No CAROLINE WISDOM LPN - 05/03/2014 9:26 KNOT SAW OPERATOR Subjective Pain Symptoms : No CAROLINE WISDOM LPN - 05/03/2014 9:26 KNOT SAW OPERATOR Dependent Habits Tobacco Use/Currently Using : No Exposure to Tobacco Smoke : Other: Never Smoking Status : Never smoker CAROLINE WISDOM LPN - 05/03/2014 9:26 KNOT SAW OPERATOR ID Screen Drug Resistant Organism : No Travel Within Last 21 Days : No Contact with someone with Ebola : No CAROLINE WISDOM LPN - 05/03/2014 9:26 KNOT SAW OPERATOR Source: [facility] POWERCHART Document Id: [id number] KNOT SAW OPERATOR!29 SAW OPERATOR documented in this encounter Plan of Treatment Not on filedocumented as of this encounter Visit Diagnoses Not on filedocumented in this encounter
--- OUTSIDE RECORDS SUMMARY | 2022-01-28 07:31 | XMS_ITS | Encounter Summary ---
:1985 Author Organization [facility] Address [address] [place] [address] Care Team Providers Name Role Phone Elsewhere, Pcp Primary Care Provider Unavailable Encounter Details Date Type Department Care Team Description 09/14/2021 Orders Only Department of Obstetrics Torrey Kim, [place] and Gynecology in [address] [place], [place] [address] [place] [address] [place] [address] [phone] Social History Tobacco Use Types Packs/Day Years [...] 09/19/2021 relatives? How often do you attend hoahaoism or jain services? Never 09/19/2021 Do you belong to any clubs or organizations such as No 09/19/2021 hoahaoism groups, unions, fraternal or athletic groups, or [...] minutes do you engage in exercise at is 30 min 09/19/2021 level? Stress Answer [...] on filedocumented in this encounter Care Teams Communications Controller Relationship Specialty Start Date End Date Elsewhere, Pcp PCP - General Family Medicine 02/03/19 documented as of this encounter
--- OUTSIDE RECORDS SUMMARY | 2022-01-28 07:31 | XMS_ITS | Encounter Summary ---
:1985 Author Organization [facility] Address [address] [place] [address] Care Team Providers Name Role Phone Unavailable [...] 09/19/2021 relatives? How often do you attend scientology or oriental orthodox services? Never 09/19/2021 Do you belong to any clubs or organizations such as No 09/19/2021 scientology groups, unions, fraternal or athletic groups, or [...] Comments Blood Pressure 100/62 04/23/2014 2:23 PM UNIVERSITY REGISTRAR Pulse 76 04/23/2014 2:23 PM UNIVERSITY REGISTRAR Temperature - - Respiratory Rate - - Oxygen Saturation - - Inhaled Oxygen Concentration - - Weight 67.2 kg (148 lb 2.4 oz) 04/23/2014 2:23 PM UNIVERSITY REGISTRAR Height - - Body Mass Index - - documented in this encounter Progress Notes Ramy Ospina M.D. - 04/23/2014 2:18 PM CST [id number] CHIEF COMPLAINT/REASON FOR VISIT Ovarian cyst, emergency [...] symptoms have resolved. 12. I have contacted [facility] and scheduled patient for laparoscopy with possible laparotomy with possible ovarian cystectomy versus oophorectomy, as well as excision of mass on 05/06/2014. 13. Pain precautions reviewed with the patient. 14. I would like the patient to see Wafer Fabrication Technician for assistance in applying for medical insurance. 15. I spent 30 minutes sufi-ah-ujxi time with the patient, with over 50% of that time spent in counseling. Ramy Ospina M.D./oma Electronically Signed By: RAMY OSPINA MD On: 04/26/2014 08:16 AM Source: [facility] MHSDOLBEYNONRADSYS Document Id: [id number] ERSITY REGISTRAR documented in this encounter Miscellaneous Notes Miscellaneous - Ramy Ospina M.D. - 04/23/2014 2:58 PM CST Ambulatory Patient Summary [address] [id number] Visit Information Name: NICK BARAJAS [facility] Number: [id number] Current Date: 04/23/2014 14:58:01 Physicians Attending Provider: RAMY OSPINA MD Primary Care Provider: PCP, BRONWYNSSIGNED - FB NICK BARAJAS has been given [...] Date Time Location Provider 05/03/2014 09:30 [facility] VP INFORMATION TECHNOLOGY Ramy Ospina MD Attention: Contact your local Clinic if further appointment detail needed. Your Goals/Additional instructions: Source: [facility] POWERCHART Document Id: [id number] ERSITY REGISTRAR Miscellaneous - Ramy Ospina M.D. - 04/23/2014 2:58 PM CST Ambulatory Discharge Medication List [address] [id number] Visit Information Name: NICK BARAJAS [facility] Number: [id number] Visit Date: 04/23/2014 14:58:01 [...] MD Signed On:23-APR-2014 14:57:59 Additional Information: Source: [facility] POWERCHART Document Id: [id number] ERSITY REGISTRAR Miscellaneous - Isacc Wisdom, L.P.N. - 04/23/2014 2:23 PM CST Adult Line Therapist Intake/History Adult Line Therapist Intake/History Entered On: 04/23/2014 14:25 UNIVERSITY REGISTRAR Performed On: 04/23/2014 14:23 UNIVERSITY REGISTRAR by ISACC WISDOM LPN Intake Chief Complaint [...] kg ISACC WISDOM LPN - 04/23/2014 14:23 UNIVERSITY REGISTRAR General Info Information Given By : Patient Languages : Thai Is Patient Female and 13-50 no hysterectomy : Yes Status : Patient denies Are you ? : No ISACC WISDOM LPN - 04/23/2014 14:23 UNIVERSITY REGISTRAR Subjective Pain Symptoms : No ISACC WISDOM LPN - 04/23/2014 14:23 UNIVERSITY REGISTRAR Dependent Habits Tobacco Use/Currently Using : No Exposure to Tobacco Smoke : Other: Never Smoking Status : Never smoker ISACC WISDOM LPN - 04/23/2014 14:23 UNIVERSITY REGISTRAR ID Screen Drug Resistant Organism : No Travel Within Last 21 Days : No ISACC WISDOM LPN - 04/23/2014 14:23 UNIVERSITY REGISTRAR [facility] Document Id: [id number] UNIVERSITY REGISTRAR!28 ERSITY REGISTRAR documented in this encounter Plan of Treatment Not on filedocumented as of this encounter Visit Diagnoses Not on filedocumented in this encounter
--- OUTSIDE RECORDS SUMMARY | 2022-01-28 07:31 | XMS_ITS | Encounter Summary ---
:1985 Author Organization [facility] Address [address] [place] [address] Care Team Providers Name Role Phone Elsewhere, Pcp Primary Care Provider Unavailable Encounter Details Date Type Department Care Team Description 08/07/2021 Orders Only Department of Nery Murrell Supervis ion Of Other Obstetrics and L, R.N. High Risk Pregnancies Gynecology in [address] [place] [address] Unspecified Trimester [place], [place] (HCC) (Primary Dx) [address] [place] [id number] [place] [address] Social History Tobacco Use Types Packs/Day Years [...] 09/19/2021 relatives? How often do you attend sabianism or gnosticist services? Never 09/19/2021 Do you belong to any clubs or organizations such as No 09/19/2021 sabianism groups, unions, fraternal or athletic groups, or [...] Primary documented in this encounter Care Teams Residential Solar Sales Consultant Relationship Specialty Start Date End Date Elsewhere, Pcp PCP - General Family Medicine 02/03/19 documented as of this encounter
--- OUTSIDE RECORDS SUMMARY | 2022-01-28 07:31 | XMS_ITS | Clinical Summary ---
:1985 Author Organization [facility] Address [address] [place] [address] Care Team Providers Name Role Phone Elsewhere, Pcp Primary Care Provider Unavailable Source Comments Patient records contain information from all sites at [facility]. For routine questions regarding patient records, call [phone] during business hours, M-F 8:00 AM - 5:00 PM Central Time. Record requests for emergency care only can be directed to [phone] at any time.[facility] Allergies No known active allergies Medications Medication Sig Dispensed Refills Start Date End Date Status Take 1 tablet by 0 Act davis gvywdxf-Hv-fubb-FA mouth daily. (VINATE ONE) 60 mg iron-1 mg per tablet cetirizine (ZyrTEC) 10 Chew 10 mg daily. 0 Active mg chewable tablet aspirin [address] Take 81 mg by 0 Active tablet mouth daily. Active Problems Patient Care Coordination Note Formatting of this note might be differe nt from the original. Pt is being seen in [place]. She may return to [place] for care Problem Noted Date Resection Teratoma [...] 09/19/2021 relatives? How often do you attend bahai or druze services? Never 09/19/2021 Do you belong to any clubs or organizations such as No 09/19/2021 bahai groups, unions, fraternal or athletic groups, or [...] Respiratory Rate 22 02/03/2019 3:41 PM CORPORATE LEGAL INTERN Oxygen Saturation 99% 09/19/2021 3:20 PM CDT Inhaled Oxygen Concentration - - Weight 92.9 kg (204 lb 12.9 oz) 09/19/2021 3:18 PM CDT Height 154.9 cm (5' 1) 02/02/2019 10:13 PM CORPORATE LEGAL INTERN Body Mass Index 38.7 02/02/2019 10:13 PM CORPORATE LEGAL INTERN Plan of Treatment Health Maintenance Due Date [...] Phone Address Typ e / Group Dates [facility] CHOICE [id number] 2018-Pres [phone] [address] [address] PPO PLUS ent [address] [place] [id number] Guarantor Name Account Type Relation to Date of Phone Billing Patient Address Markus Esteves Personal/Family Self 1985 [address] [facility] (Home) [place] [address] Advance Directives For more information, please contact: [phone] Latest Code Status on File Code Status Date Activated Date Inactivated Comments Full Code 02/02/2019 10:57 PM 02/03/2019 7:17 PM Question Answer Comments Full Code: Discussed Care Teams Real Estate Listing Consultant Relationship Specialty Start Date End Date Elsewhere, Pcp PCP - General Family Medicine 02/03/19
--- OUTSIDE RECORDS SUMMARY | 2022-01-28 07:31 | XMS_ITS | Encounter Summary ---
:1985 Author Organization [facility] Address [address] [place] [address] Care Team Providers Name Role Phone Unavailable [...] 09/19/2021 relatives? How often do you attend zoroastrian or jewish services? Never 09/19/2021 Do you belong to any clubs or organizations such as No 09/19/2021 zoroastrian groups, unions, fraternal or athletic groups, or [...] Chorionic Gonadotropin), Quantitative, (09/01/2014 11:05 AM CDT) [facility] gist Method Time Signature HCG, <0.5 <5.0 [facility] Quantitative, Negative; LABORATORIES - , S 5.0-25.0 [facility] Indeterminat [facility] e; >25.0 Positive IU/L Specimen Anatomical Collection Method Collection Time Receive d Time (Source) Location / / Volume Laterality 09/01/2014 11:05 09/01/2014 AM CDT 11:05 AM CDT Chapito G Thomson M.D. LAB BLOOD ADD-ON Performing Organization Address City/State/ZIP Code Phon e Number [facility] LABORATORIES - [address] [place], [place] [address] [facility] Inhibin A and B, Tumor Marker (09/01/2014 11:05 AM CDT) athologist Signature Inhibin A, 6.3 <97.5 [facility] Tumor Marker, ([place] LABORATORIES - S usal); [facility] <2.1 [place] (Postmenop ausal) PG/ML Comment: ? ADDITIONAL INFORMATIO N ? The testing method is an immunoenzymatic assay ? manufactured by [employer]. and performed ? on the UniCel DxI [...] ? Inhibin B, S 17 SeeComment PG/ML [facility] Comment: ? REFERENCE VALUE------ ? <139 (Premenopausal, Follicular) ? <92 (Premenopausal, Luteal) ? <10 (Postmenopausal) ? ADDITIONAL INFORMATIO N ? The testing method is a manual immunoenz ymatic assay manufactured by [employer] ? [employer] ??Values obtained with diff erent assay [...] Organization Address City/State/ZIP Code Phon e Number [facility]ATORIES - [address] [place], [place] [address] [facility] (ABNORMAL) AFP (Alpha-Fetoprotein), Tumor Marker (09/01/2014 11:05 AM CDT) [facility] gist Method Time Signature Alpha-Fetopro 407 (H) SeeComment [facility] tein, Tumor NG/ML LABORATORIES - Marker, S [facility] Comment: ? REFERENCE VALUE------ ? <6.0 ? Reference values are for non- ? subjects only; ? production of AFP ? elevates values in ? women. ? ADDITIONAL INFORMATIO N ? The testing method is an immunoenzymatic assay ? manufactured by [employer] and performed ? on the UniCel [...] Organization Address City/State/ZIP Code Phon e Number [facility] - [address] [place], [place] [address] [facility] LD (Lactate Dehydrogenase) (09/01/2014 10:46 AM CDT) Patholo gist Method Time Signature Lactate 181 122 - 222 [facility] Dehydrogenase U/L LABORATORIES - (LD), S [facility] Specimen Anatomical Collection Method Collection Time Receive d Time (Source) Location / / Volume Laterality 09/01/2014 10:46 09/01/2014 AM CDT 10:46 AM CDT Chapito Thomson M.D. LAB BLOOD NON ADD-ON Performing Organization Address City/State/ZIP Code Phon e Number [facility] - [address] [place], [place] [address] [facility] Hx general Pathology Report (09/01/2014 9:00 AM CDT) Specimen Anatomical Collection Method Collection Time Receive d Time (Source) Location / / Volume Laterality 09/01/2014 9:00 AM 09/01/201 5 9:00 CDT AM CDT Narrative [facility] - 09/01/2014 9:00 AM CDT ??09/01/2014 Surgical Pathology ?([id number]) ? Requested By: Ramon Rodriguez M.D. ? ?[id number] ? SLIDE DISPOSITION: ? DIAGNOSIS: ?? A. [...] ?? Participated in interpretation: ??Shirin Jolley M.D. [phone] and Stu Mariee M.D. [phone] ? Seen in consultation with Dr. Rodolfo [...] 09/07/2014 12:44 Interpreted by: Julio Dennis M.D. [id number] Report electronically signed by Julio Dennis M.D. [...] with scant calcifications. ??No papillary excrescence identified. ??Electroneurodiagnostic Technician sections a re submitted. ??Grossed by /[facility]. ?? B. Received fresh labeled left ovarian mass is a 65.9 gram, 8.8 x 6.8 x 2.4 cm holt-pink biloculated cyst. ??The specimen is deflated and displays a smooth surface. ??Openin g reveals one cyst containing sanguinous fluid and contains the holt-g reen debris, bezoar, fat and skin. ??No papillary excrescences are g rossly identified. ?? Electroneurodiagnostic Technician sections are submitted. ??Grossed [facility]. ?? C. Received fresh labeled left ovarian mass #2 is a 6.2 gram, 4.9 x 3.2 x 1.5 cm deflated unilocular cyst . ??Opening reveals holt-sierra grumous material and a bezoar. ??No pap illary excrescences are identified. ??Electroneurodiagnostic Technician sections a re submitted. ??Grossed by [facility]. ? BLOCK SUMMARY: Part A: ??Right ovarian [...] ? Procedure Note 05/25/2017 09/01/2014 Surgical Pathology ([id number]) Requested By: Ramon Rodriguez M.D. [phone] SLIDE DISPOSITION: DIAGNOSIS: A. Ovary, right mass, [...] dimension. Participated in interpretation: Klaudia Jolley M.D. [phone] and Stu Mariee M.D. [phone] Seen in consultation with Dr. Rodolfo jackson. [...] scant calcifications. No p apillary excrescence identified. Electroneurodiagnostic Technician sections are submitted. Grossed by /[facility]. B. Received fresh labeled left ovarian mass is a 65.9 gram, 8.8 x 6.8 x 2.4 cm holt-pink biloculated cyst. The specimen is deflated and displays a smooth surface. Opening reveals one cyst containing sanguinous fluid and contains the holt-g reen debris, bezoar, fat and skin. No papillary excrescences are carole ssly identified. Electroneurodiagnostic Technician sections are submitted. Grossed SS/[facility]. C. Received fresh labeled left ovarian mass #2 is a 6.2 gram, 4.9 x 3.2 x 1.5 cm deflated unilocular cyst . Opening reveals holt-sierra grumous material and a bezoar. No papil fay excrescences are identified. Electroneurodiagnostic Technician sections are submitted. Grossed by [facility]. BLOCK SUMMARY: Part A: Right ovarian mass [...] Organization Address City/State/ZIP Code Phon e Number [facility] - [address] [place] [address] [facility] documented in this encounter Visit Diagnoses Not on filedocumented in this encounter
--- OUTSIDE RECORDS SUMMARY | 2022-01-28 07:31 | XMS_ITS | Encounter Summary ---
:1985 Author Organization [facility] Address [address] [place] [address] Care Team Providers Name Role Phone Unavailable [...] 09/19/2021 relatives? How often do you attend synagogue or nondenominational services? Never 09/19/2021 Do you belong to any clubs or organizations such as No 09/19/2021 synagogue groups, unions, fraternal or athletic groups, or [...] place to sleep or slept in a skilled nursing (including now)? Sex Assigned at Date Recorded Female 09/19/2021 11:18 AM CDT documented as of this encounter Plan of Treatment Not on filedocumented as of this encounter Visit Diagnoses Not on filedocumented in this encounter
--- NOTE | 2022-01-28 09:10 | P.LDBA_ITS ---
Subjective History of Present Illness Time Seen by Provider: 09:10 Date Seen: 01/28/22 Narrative: Patient presented to Labor and Delivery for evaluation of vaginal bleeding. She 1st noticed some bleeding when she got up to go to the bathroom around 7:00 a.m. this morning. She denied abdominal pain, contractions, or leakage of fluid at the time. She is now experiencing some intermittent mild contractions. Her fetus is active. She is a 36 year old at 38 6/7 weeks gestation. Her full history and physical was dictated by Dr. Escobar on 01/19/2022. Please see this for details. Of note, she is scheduled for a repeat low transverse section with bilateral tubal ligation for 02/01/2022. She has not yet had breakfast. She did have a little bit of juice in triage this morning. OB PROBLEM LIST: Blood type: O positive 1. Gestational diabetes dx 10/04/21. Diet controlled. Hb A1c 5.7% at onset of = prediabetes. No history of GDM. Referred to nursing home admissions director in 1st trimester. Will revisit for training on glucometer at 24 weeks. US 28 weeks: Breech, SDP 6.1, EFW 96%, BPD >97%, HC 94%, AC>97%, FL 22%. Repeat US at 32 weeks: EFW 2676 g or 5# 14 oz (>97%), BPD 97%, HC 89%, AC >97%, FL 44%. SDP 6.4 cm. Vertex. US 12/13 22: Cephalic, SDP 6.4, EFW 2676 g = 97%, BPD 97%. HC 89%. AC>97%. FL 44%. 01/10/22:EFW 3545 g or 7 lb 13 oz (97%), BENITO 16 cm, vertex presentation.? 2 . Varicella non-immune. Vaccinate . 3. dyspnea last . Transferred to [place] for SOB on PPD 5 in 2019. Treated with Lasix for volume overload. Elevated pro BNP, troponin, and ground glass opacities on CT, normal LVEF = 60-65%. She was not diagnosed with cardiomyopathy. Hospitalized overnight. During hospitalization repeat CT scan was mentioned as appropriate follow up but not performed here. CXR ordered 07/28/21: normal. 4. Multiple uterine fibroids. On dating US 06/27/21: posterior 3.5 X 3.2 X 4.2 cm. Left anterior lower uterine segment 2.5 X 2.0 X 2.0. Posterior lower uterine segment 2.3 cm in greatest dimension. Largest fibroid 4.3 cm left lateral on US at [place] 09/20/21 Serial US for growth beginning 28 weeks (See #1) 5. Previous for arrest of descent . Likelihood of success 33.2%. Prefers repeat . Scheduled 02/01/[address] Thompson = 39 3/7 weeks 6. 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 S/p bilateral ovarian cystectomy. Monitored with AFP for 2 years. No further testing indicated after that. 7. Advanced maternal age. Declines genetic testing. Level 2 US 09/19/21 at [place]: normal. Vaccinations: Flu 06/29/21 Received COVID + booster Varicella OB - H&P: Exam Physical Exam: Vital signs: Temp Pulse Resp BP Pulse Ox 98 F 94 16 116/57 L 97 01/28/22 07:56 01/28/22 07:53 01/28/22 07:56 01/28/22 07:53 01/28/22 08:05 Constitutional: Constitutional: no acute distress Routine HEENT Exam: Head: Present normocephalic Eye: Present normal appearance Routine Neck Exam: Neck: Present full ROM Routine Respiratory Exam: Respiratory: Present CTA bilaterally Routine Cardiovascular Exam: Cardiovascular: RRR Detailed Labor and Delivery Exam: Patient Gravid: yes Dilation (cm): 8 Effacement (%): 80 Cervix position: mid Consistency: soft Contraction frequency (min): 5 Contraction duration (sec): 90 Contraction intensity: Mild Fetus (Single): Station: -1 Monitor Accelerations: Present Monitor Decelerations: None Penitentiary Variability: Moderate (6-25) Routine Extremities Exam: Extremities: Absent pedal edema or tenderness Routine Back/Spine/Pelvis Exam: Back/Spine: full ROM Routine Neurological Exam: Present alert, oriented X3 and moving all extremities Routine Psychiatric Exam: Present normal affect OB - Problem Based A/P Additional Plan (1) Gestational diabetes: Status: Acute (2) Spon labr w plan C/S-del: Status: Acute Plan 1. The patient is in active labor. She has a planned delivery with bilateral tubal ligation scheduled for 02/01/2022. The delivery will be done today instead. She will remain NPO until surgery. IV access will be established and routine preop labs obtained. The operating room staff and Anesthesia were notified. Informed consent for the procedure was obtained. Delivery/Labor/Induction Plan Plan: Section
[2022-01-28] MEDS: LACTATED RINGERS 1000 ML 1,000 ML IV (09:23)
[2022-01-28 09:29] LABS: Hemoglobin* 12.9 gm/dL (12.0-16.0)
[2022-01-28 10:06] LABS: Basophils Absolute Auto 0.01 K/uL (0.00-0.30); Basophils Percent Auto 0.1 % (0.0-3.0); Eosinophils Absolute Auto 0.17 K/uL (0.00-0.50); Hematocrit 38.2 % (33.0-51.0); Hemoglobin* 12.9 gm/dL (12.0-16.0); Immature Granulocytes Abs Auto 0.05 K/uL (0.00-0.30); Immature Granulocytes Pct Auto 0.6 %; Lymphocytes Percent Auto 10.4 % (20-44); Mean Corpuscular HGB Conc 34 gm/dL (32-36); Mean Corpuscular Hemoglobin 30 pg (26-34); Mean Corpuscular Volume 88 fL (80-100); Monocytes Percent Auto 10.1 % (0.0-11.0); Neutrophils Percent Auto 76.8 % (42.0-72.0); Platelet Count* 162 K/uL (140-440); RDW Coefficient of Variation % 13.8 % (11.5-15.5); Red Blood Count 4.36 m/uL (4.00-5.20); White Blood Count* 8.63 K/uL (4.50-11.00)
[2022-01-28] MEDS: LACTATED RINGERS 1000 ML 1,000 ML 100 ML IV ×2 (10:06→10:47)
[2022-01-28 10:07] LABS: SARS PCR* Negative SARS-CoV-2 (Negative)
[2022-01-28] MEDS: CEFAZOLIN 2 GM INJ IVP (10:16)
[2022-01-28 11:12] LABS: Slide Review Reflex No
[2022-01-28] MEDS: KETOROLAC 15 MG/ML inj IVP (11:35)
--- NOTE | 2022-01-28 11:48 | PM.OBPRCCS ---
Procedure Pre-op/Post-op diagnoses: Pre-Op/Post-Op Diagnoses Operation Date: 01/28/22 10:15 <No data on this case meets the specified criteria> Procedure Done: Global Procedure Details: Procedures Operation Date: 01/28/22 10:15 Actual Procedure Side Surgeon p Section Leesa Calderon MD Estimated blood loss (mL): 1,951 Disposition: floor Anesthesia type: TAP block Complications: None. Narrative: DATE: 01/28/2022 PREOPERATIVE DIAGNOSES: 1. Intrauterine at 38 6/7 weeks' gestation. 2. History of prior low transverse section x1, desiring repeat. 3. Undesired fertility. 4. Active labor. 5. Gestational diabetes. 6. 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 POSTOPERATIVE DIAGNOSES: 1. Intrauterine at 38 6/7 weeks' gestation. 2. History of prior low transverse section x1, desiring repeat. 3. Undesired fertility. 4. Active labor. 5. Gestational diabetes. 6. 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 NAME OF PROCEDURE: Repeat low transverse section. Lysis of adhesions. Bilateral salpingectomies. SURGEON: Kvng. ANESTHESIA: Spinal. COMPLICATIONS: None. ESTIMATED BLOOD LOSS: 1951 mL (though large amount of amniotic fluid in the canister as well, QBL approximately 800 mL in weighed sponges). DRAINS: Antonio to gravity. FINDINGS: Live-born male infant, cephalic presentation, Apgars 8 and 9 at 1 and 5 minutes respectively. weight 10 lb 0 oz. Normal appearing uterus, tubes, and ovaries. Uterine myomas. Dense adhesions between fascia, rectus muscles, omentum, anterior peritoneum, left ovary and anterior uterine serosa. PROCEDURE: After obtaining informed consent, the patient was taken to the operating room where spinal anesthesia was obtained and found to be adequate. She was prepared and draped in the normal sterile fashion in the dorsal supine position with a leftward tilt. A Pfannenstiel skin incision was made with a scalpel in an elliptical fashion along the line of the patient's previous Pfannenstiel scar. The old scar was grasped with Allis clamps and excised with the scalpel. The incision was carried down to the underlying layer of fascia with the Bovie. The fascia was incised in the midline and the incision extended laterally. The superior and inferior aspects of the fascial incision were grasped with Brea clamps, elevated and the underlying rectus muscles dissected off sharply and with electrocautery. This dissection took an increased amount of time given the dense adhesions. The rectus muscles were then in the midline. The underlying peritoneum had been entered with the lysis of adhesions, and the peritoneal incision was extended superiorly and inferiorly with good visualization of the bladder. The Grey O retractor was then placed into the incision. The lower uterine segment was then incised in a transverse fashion with the scalpel. Upon entry into the uterus, copious clear amniotic fluid was noted. The uterine incision was extended laterally with blunt finger fractionation. The infant's head was delivered atraumatically, followed by the remainder of the infant's body. The nose and mouth were suctioned with the bulb suction. The cord was doubly clamped and cut after 60 second delay, and the infant was handed off the field to Maira Watson NP for evaluation. The placenta was delivered spontaneously with umbilical cord traction and fundal massage. The uterus was cleared of all clots and debris. There was some brief uterine atony. The uterine incision was reapproximated in a running locking fashion with a 0 chromic suture. A 2nd layer of the same suture was used to imbricate in horizontal fashion. The uterus was not exteriorized. Instead, the uterus was retracted to the left, and then to the right in order to access the tubes. Both fallopian tubes were identified to their fimbrial ends. There was a pathologic adhesion connecting the left ovary to the uterine serosa in the anterior midline. This adhesion was doubly clamped near the uterine serosa, transected, and suture ligated with 0 Vicryl. The left fallopian tube was then elevated with 2 Fei clamps, and dissected from its cardinal ligament and ovarian attachments and the left uterine cornua using the hand-held LigaSure device. The tube was passed off the field. Excellent hemostasis was visualized. Attention was then turned to the right fallopian tube, which was elevated, dissected from its cardinal ligament and ovarian attachments as well as the right uterine cornua, and passed off the field. Excellent hemostasis was visualized. The gutters were irrigated and suctioned. All instruments and retractors were removed. The anterior peritoneum was reapproximated in a running fashion with a 3-0 Vicryl suture. The subfascial tissues were carefully inspected and hemostasis assured. The fascia was reapproximated in a running fashion with a looped 0 Maxon suture. The subcutaneous tissues were copiously irrigated. Hemostasis was assured. The skin was closed in a subcuticular fashion with 4-0 Vicryl. Exofin and dressing were applied. The patient tolerated the procedure well. Sponge, lap, needle, and instrument counts were reported as correct x2. The patient was taken to the recovery room, awake, and in stable condition. She did receive 2 grams of IV Ancef preoperatively and tranexamic acid 1 g IV intraoperatively for brisk bleeding due to uterine atony, as well as IV Pitocin.
--- NOTE | 2022-01-28 12:07 | W.ANESCHARGE ---
Anesthesia Charges Start Date/Time Anesthesia Start Date: 01/28/22 Anesthesia Start Time: 10:06 Stop Date/Time Anesthesia Stop Date: 01/28/22 Anesthesia Stop Time: 11:59 Summary Emergency: Yes
--- NOTE | 2022-01-28 12:08 | P.NB_ITS ---
Nerve Block Nerve Block Time Seen by Provider: 11:50 Date Seen: 01/28/22 Type of block requested by surgeon for post-operative analgesia: TAP Side: bilateral Time out performed: Yes Verification of patient name: Yes Verification of date of : Yes Site marking: site marked Name of person performing procedure: moisés Continuous monitoring Was continuous monitoring of O2 sat, B/P, cardiac monitor technician, recorded every 15 minutes?: Yes Procedure Checklist: sterile prep, needles and gloves Ultrasound guided. Images saved: Yes Medications given in 5ml increments after negative aspiration: Marcaine %: 0.25 mL: 30 Needle gauge: 20 and Exparel mL: 10 Needle gauge: 20 Patient tolerated procedure well: Yes Block Charges Block Charge (with Pro Fee): TAP Bilateral Use of Ultrasound Machine for Block: Yes- US Guidance/pain block
[2022-01-28] MEDS: KETOROLAC 30 MG/ML inj IVP ×2 (17:30→23:47)
[2022-01-29] VITALS (16 sets, daily range): BP systolic 98–113; BP diastolic 46–72; PULSE 88–96; RESP 16; TEMP 36.2–36.6; O2SAT 96–99
[2022-01-29] MEDS: KETOROLAC 30 MG/ML inj IVP ×3 (05:54→18:02)
[2022-01-29] MEDS: SODIUM CHLORIDE 0.9 % (FLUSH) 10 ML SYRINGE IVF (05:55)
[2022-01-29 07:44] LABS: Hemoglobin* 9.4 gm/dL (12.0-16.0)
--- NOTE | 2022-01-29 08:30 | PM.OBPNCS1 ---
OB - PN: A/P Assessment and Plan (1) S/P section: Problem details: with bilateral salpingectomies Status: Acute (2) Lactating mother: Status: Acute (3) Gestational diabetes: Status: Acute (4) Acute anemia: Status: Acute Plan 36 yo G2 now P2 Post- with bilateral salpingectomies Day 1 Lactating mother Acute Anemia Routine post- cares support Iron supplementation Plan day: 1 Plan: routine postop care OB - PN: Subj Subjective Time Seen by Provider: 08:15 Date Seen: 01/29/22 Interval history: The patient is a 36 year old G 2 P 2 at 38w 6d weeks gestation that was admitted to the Center on 01/28/22 for vaginal bleeding. Pt was scheduled for a repeat low transverse section with bilateral tubal ligation for 02/01/2022. She had an uncomplicated repeat delivery and bilateral salpingectomies 01/28/22. She delivered a viable male . She is breast feeding and is concerned baby may have a tongue-tie. Her first child had a tongue-tie that was released and went on to breastfeed with out concern, pt plans to discuss with surface mount technology operator and today. the patient has done well. She has been up to the bathroom and is voiding with out concern. Hgb this morning is 9.4, pt denies any dizziness, shortness of breath or nausea. Patient comments: no complaints, pain well controlled and flatus present [place] status: and doing well [place] feeding status: exclusively OB - PN: Obj Exam Physical Exam: Vital signs: Temp Pulse Resp BP Pulse Ox O2 Del Method 97.4 F L 88 16 100/63 98 01/29/22 05:15 01/29/22 05:15 01/29/22 06:50 01/29/22 05:15 01/29/22 05:15 01/29/22 05:15 Constitutional: Constitutional: no acute distress Routine HEENT Exam: Head: Present normocephalic Eye: Present normal appearance Routine Neck Exam: Neck: Present full ROM Routine Respiratory Exam: Respiratory: Present CTA bilaterally Routine Cardiovascular Exam: Cardiovascular: Present RRR Routine Abdominal Exam: Abdominal: Present normal bowel sounds, soft and tenderness Fundus: Present firm Routine Extremities Exam: Extremities: Present full ROM; Absent pedal edema Routine Back/Spine/Pelvis Exam: Back/Spine: Present full ROM Routine Skin Exam: Skin: Present dry, normal color and warm; Absent rash Routine Neurological Exam: Neurological: Present alert and oriented X3 Detailed Neurological Exam: Coma Scale: Eye Opening: Spontaneous (4) Verbal Response: Orientated (5) Routine Psychiatric Exam: Psychiatric: Present normal affect, normal thought process, cooperative, good insight and good judgment Wound Management: Method: adhesive Examination: Present dressed, clean, dry and intact; Absent bloody drainage or serosanguinous drainage Urinary Catheter Management: Antonio: Cath placed during this visit: yes Urethral indwelling: No Insertion date: 01/28/22 Insertion time: 10:28 OB - PN: Obj Data Labs Labs: Laboratory Results - last 24 hr 01/28/22 01/28/22 01/28/22 09:20 09:20 09:20 WBC RBC Hgb 12.9 Hct MCV MCH MCHC RDW Coeff of Holden Plt Count Neut % (Auto) Lymph % (Auto) [place] % (Auto) Eos % (Auto) Baso % (Auto) Neut # (Auto) Lymph # (Auto) [place] # (Auto) Eos # (Auto) Baso # (Auto) Abs Immat Gran (auto) Imm/Tot Granulo (auto) SARS-CoV-2 (PCR) Negative SARS-CoV-2 Blood Type O Positive Antibody Screen NEGATIVE 01/28/22 01/29/22 09:58 07:11 WBC 8.63 RBC 4.36 Hgb 12.9 9.4 L Hct 38.2 MCV 88 MCH 30 MCHC 34 RDW Coeff of Holden 13.8 Plt Count 162 Neut % (Auto) 76.8 H Lymph % (Auto) 10.4 L [place] % (Auto) 10.1 Eos % (Auto) 2.0 Baso % (Auto) 0.1 Neut # (Auto) 6.60 Lymph # (Auto) 0.90 [place] # (Auto) 0.90 Eos # (Auto) 0.17 Baso # (Auto) 0.01 Abs Immat Gran (auto) 0.05 Imm/Tot Granulo (auto) 0.6 SARS-CoV-2 (PCR) Blood Type Antibody Screen
[2022-01-29] MEDS: DOCUSATE SODIUM 100 MG CAPSULE PO (09:26)
[2022-01-29] MEDS: ACETAMINOPHEN 500 MG TABLET 1000 MG PO (20:42)
[2022-01-30 01:21] VITALS: BP 98/60; PULSE 93; RESP 16; TEMP 36.8; O2SAT 98
[2022-01-30] MEDS: IBUPROFEN 600 MG TABLET PO ×2 (03:21→10:28)
[2022-01-30 05:56] VITALS: BP 124/77; PULSE 83; RESP 16; TEMP 36.4; O2SAT 99
[2022-01-30] MEDS: ACETAMINOPHEN 500 MG TABLET 1000 MG PO (07:38)
--- NOTE | 2022-01-30 07:38 | P.DS_ITS ---
DS: Providers Provider Date Seen: 01/30/22 Date of admission: 01/28/22 09:11 Primary care physician: Williams Carlisle MD Admitting Clinician: Leesa Calderon MD Attending Physician on discharge: Jemima Dailey CNM Date of Discharge: 01/30/22 DS: Diagnosis Discharge Diagnosis (1) Acute anemia: Status: Acute (2) Lactating mother: Status: Acute (3) S/P section: Status: Acute Problem details: with bilateral salpingectomies (4) Status post bilateral salpingectomy: Status: Acute (5) Routine follow-up: Status: Acute Exam Const: Vital Signs, click to edit/add: Vital Signs - 24 hr 01/29/22 09:22 01/29/22 08:30 01/29/22 09:30 Temperature 97.5 F L Pulse Rate [Pulse Oximeter] 88 Respiratory Rate 16 16 16 Blood Pressure [Ri ght Arm] 112/72 Pulse Oximetry 99 Oxygen Delivery Me thod Room Air 01/29/22 10:30 01/29/22 18:07 01/29/22 19:35 Temperature 97.5 F L 97.2 F L Pulse Rate [Pulse Oximeter] 95 96 Respiratory Rate 16 16 16 Blood Pressure [Ri ght Arm] 104/70 98/46 L Pulse Oximetry 97 97 Oxygen Delivery Me thod Room Air Room Air 01/30/22 01:21 01/30/22 05:56 Temperature 98.2 F 97.6 F Pulse Rate [Pulse Oximeter] 93 83 Respiratory Rate 16 16 Blood Pressure [Ri ght Arm] 98/60 124/77 Pulse Oximetry 98 99 Oxygen Delivery Me thod Room Air Room Air Documenting provider has reviewed patient's vital signs: yes Common normals: no apparent distress, oriented x3, healthy appearing and alert HENMT: Common normals: normocephalic Head and scalp: normocephalic Eye: Common normals: PERRL Pupil: PERRL Neck & C-Spine: Common normals: full ROM and supple Chest: Common normals: inspection of chest normal Resp: Common normals: normal respiratory effort and clear to auscultation bilaterally Auscultation: clear to auscultation bilaterally Cardio: Common normals: regular rate and regular rhythm Rate: regular rate Rhythm: regular rhythm GI: Common normals: soft to palpation Palpation: soft : OB/external & speculum: Yes perineal/vaginal laceration Uterus: U/U Lochia: small Back & Pelvis: Common normals: thoracic and lumbar spine normal to inspection Extremity: Common normals: normal to inspection and full ROM Neuro: Common normals: oriented x3 Sensorium/orientation: alert Speech: speech normal Psych: Common normals: mental status grossly normal, thought process normal, speech normal and activity/motor behavior normal Speech: normal speech Thought process: normal thought process Skin: Common normals: no rashes or lesions noted General skin exam: no rashes or lesions noted DS: Data Data Completed and Pending Labs on day of discharge: Labs from last 24 hours 01/29/22 07:11 Hgb 9.4 L OB - DS: Summary Hospital Course Hospital Course: The patient is a 36 year old G [] P [] at [] weeks gestation that was admitted to the [facility] on 01/28/22 for []. She had an [uncomplicated/complicated] [vaginal/] delivery. She delivered a viable [male/female] . She is [breast/bottle] feeding. the patient has done well. Peripartum Data Procedures: Procedures Operation Date: 01/28/22 10:15 Actual Procedure Side Surgeon p Section with bilateral salpingectomy Leesa Calderon MD Infant Gender: Male Time Spent with Patient Time attestation: Total time spent providing and/or coordinating discharge services: Discharge Plan Discharge Disposition: Home, Self-Care Date of Admission: 01/28/22 09:11 Primary Care Provider: Williams Carlisle Condition: Stable Anticipated Discharge Date/Time: 01/30/22 09:00 Discharge Medications: New docusate sodium 100 mg Capsule 100 mg PO DAILY Qty: 30 0RF ibuprofen 600 mg Tablet 600 mg PO Q6H PRN (Reason: Pain) Qty: 30 0RF oxycodone 5 mg Tablet 5 mg PO Q6H PRN (Reason: Pain) Qty: 20 0RF acetaminophen 500 mg Tablet 1,000 mg PO Q6H PRN (Reason: Pain) Qty: 0 0RF Continued prenat.vits,triston,[id number] Tablet 1 tab PO QDAY magnesium citrate 100 mg capsule 200 mg PO QDAY Discontinued aspirin 81 mg tablet,delayed release (DR/EC) 81 mg PO DAILY (DME) Test Strips Misc See Rx Instructions .MEDSUPPLY Qty: 100 3RF Rx Instructions: Test blood sugar 4 times daily. (DME) Blood Glucose Meter Misc See Rx Instructions .MEDSUPPLY Qty: 1 0RF Rx Instructions: One meter (DME) lancets Misc See Rx Instructions .MEDSUPPLY Qty: 100 3RF Rx Instructions: Test blood sugar 4 times daily. Discharge Orders: Discharge Order (Routine); Ordered 01/30/22 Ordered By: Jemima Dailey Patient Education: OB /Breast Feeding Additional Instructions: Discharge instructions were reviewed with the patient including signs and symptoms of infection and home going medications Lifting Restrictions: 20 pounds for 6 weeks No not submerge incision under water X 2 weeks? Nothing vaginally for 6 weeks: no tampons or intercourse Do not drive while taking narcotic pain medication(s) Off Work or School for 8 weeks 2-week visit: incision check, discuss feeding concerns, review control options and screen for anxiety/depression. 6-week visit for an annual exam with 2 hour glucose challenge test. consultation services are available to all mothers and babies for the first year after delivery.? To make an appointment, please call [phone]. Activity Level: Activity as Tolerated Discharge Diet: Regular Follow Up Appointments: Williams Carlisle MD [Primary Care Provider] - (2 week and 6 week . 2 hour glucose test at 6 weeks .) Forms: [employer] Info Instructions
[2022-01-30 07:40] VITALS: BP 112/75; PULSE 83; RESP 16; TEMP 36.6; O2SAT 99
[2022-01-30] MEDS: DOCUSATE SODIUM 100 MG CAPSULE PO (09:15)
[2022-01-30] MEDS: FERROUS SULFATE 325 MG TABLET PO (09:15)
[2022-01-30] MEDS: OXYCODONE 5 MG TABLET PO (10:28)
== END 2022-01-30 11:05 | disposition home or self-care (01) | DRG 784 ==
LOC: OB OUT 09:13 → OB 09:13
PROVIDERS: Admitting Provider Obstetrics & Gynecology; PCP Family Medicine; Visit Provider Obstetrics & Gynecology
PROC: 10D00Z1 Extraction of Products of Conception, Low, Open Approach (ICD-10-PCS; CPT 59514; principal; 2022-01-28 10:00)
DX: O75.82 Onset (spontaneous) of labor after 37 completed weeks of gestation but before 39 completed weeks gestation, with delivery by (planned) cesarean section (principal); D62 Acute posthemorrhagic anemia; O24.420 Gestational diabetes mellitus in childbirth, diet controlled; Z37.0 Single live birth; Z30.2 Encounter for sterilization; O34.13 Maternal care for benign tumor of corpus uteri, third trimester; D25.9 Leiomyoma of uterus, unspecified; O90.81 Anemia of the puerperium; Z3A.38 38 weeks gestation of pregnancy
CPT/HCPCS: 01961; 36415; 64488; 76942; 82962; 85018; 85025; 86850; 86900; 86901; 87635; 88302; 99140; A9270; C9290; J0690; J1100; J1200; J1885; J2274; J2370; J2405; J2590; J3490; J7120

== ENCOUNTER 2022-03-14 09:28 | Outpatient (CLI) | payer OTHER, SELFPAY ==
[2022-03-14 09:40] LABS: Glucose Fasting Check 90 mg/dl (60-115)
[2022-03-14 13:47] LABS: Glucose Fasting 90 mg/dl (70-95)
[2022-03-14 13:49] LABS: Glucose 2 Hour 71 mg/dl (70-95)
== END 2022-03-14 09:29 | disposition home or self-care (01) ==
PROVIDERS: PCP Family Medicine; Visit Provider Registered Nurse
DX: O24.419 Gestational diabetes mellitus in pregnancy, unspecified control (principal)
CPT/HCPCS: 82947; 82950

== ENCOUNTER 2024-07-28 12:48 | Outpatient (CLI) | payer BC, SELFPAY ==
--- NOTE | 2024-07-28 13:00 | MR_ITS ---
EXAM: MRI of the RIGHT KNEE, without contrast CLINICAL INFORMATION: Female, 38 years old, with right knee pain INDICATION: Evaluate for meniscus tear PRIOR SURGERY: None reported. PLAIN FILMS: Radiographs 07/15/2024. COMPARISONS: No prior MRIs available. TECHNICAL INFORMATION: Using a 1.5T MR scanner and a localizing surface coil: sagittals: PD, PDFS coronals: PD, T2FS axials: PD, PDFS SEDATION: None CONTRAST: None FINDINGS: Knee joint: Effusion: Moderate sized right knee effusion. Popliteal cyst: Moderate sized popliteal cyst. Fluid along the medial head of the gastrocnemius is consistent with partial rupture and leaking fluid. Loose bodies: Linear appearing synovitis or debris is noted within the suprapatellar pouch. Subcutaneous and extra-articular soft tissues: Moderate prepatellar subcutaneous soft tissue edema and skin thickening. Ligaments: ACL: There is high-grade complete or near-complete tearing of the ACL near the femoral attachment within the intercondylar notch (axial series 3 images 14-16, and coronal series 8 images 18-20). PCL: Intact PCL, without acute or chronic injury. MCL: There is abnormal appearance of the MCL proximal superficial fibers with high-grade complete or near-complete tearing. The meniscofemoral fibers also appear abnormal with high-grade 3 sprain injury. The distal superficial MCL is intact. LCL: Intact LCL, without injury. Posterolateral corner: No posterolateral corner soft tissue injury. Popliteus, biceps femoris, iliotibial band, popliteofibular ligament and lateral gastrocnemius are intact. Posteromedial corner: No posteromedial corner soft tissue injury. Semimembranosus, pes anserine tendons and posterior oblique ligament are without injury, tendinopathy or bursitis. Extensor mechanism: Patellar tendon: Intact, without tendinopathy. Quadriceps tendon: Intact, without tendinopathy. Retinacula: Medial and lateral retinacula are intact. Fat pads: Unremarkable infrapatellar Hoffa's, quadriceps and prefemoral fat pads. Medial compartment: Medial meniscus: Short segment shallow vertically oriented undersurface tearing of the medial meniscus along the posterior horn approximately 3 mm sagittal series 6 image 20). Medial femoral condyle: No chondromalacia or osteochondral abnormality. Medial tibial plateau: No chondromalacia or osteochondral abnormality. Lateral compartment: Lateral meniscus: No articular surface, meniscosynovial junction or root tear. No displacement, extrusion or parameniscal cyst. Lateral femoral condyle: No chondromalacia or osteochondral abnormality. Lateral tibial plateau: There is chondral heterogeneity and irregularity along the posterior lateral tibial plateau in the region of impaction fracturing. No displaced osteochondral fragment is appreciated. Patellofemoral joint: Patella: No chondromalacia or osteochondral abnormality. Trochlea: No chondromalacia or osteochondral abnormality. Proximal tibiofibular joint: Unremarkable, without evidence of ligament sprain injury, joint effusion or adjacent marrow edema. Bones: There is osseous contusion with subchondral microtrabecular fracturing and mild posterior cortical impaction posterior lateral tibial plateau, measuring approximately 2.6 x 0.9 cm. IMPRESSION: 1. High-grade full-thickness or near full-thickness sprain/tear of the proximal ACL near the femoral attachment. Correlate with instability on physical exam. 2. High-grade complete or near-complete sprain/tear of the proximal superficial and deep meniscofemoral fibers of the MCL. 3. Osseous contusion with subchondral microtrabecular fracturing in the posterior lateral tibial plateau measuring 2.6 x 0.9 cm. 4. Short segment vertically oriented undersurface tearing of the posterior horn medial meniscus measuring 3 mm in length. 5. Chondral heterogeneity along the posterior lateral tibial plateau in the region of impaction fracturing, without displaced osteochondral fragment. 6. Moderate size knee joint effusion. Moderate size cyst with evidence of rupture and leaking fluid. KME Electronically signed on 07/28/2024 6:15:00 PM by Radha Linares M.D.
== END 2024-07-28 12:49 | disposition home or self-care (01) ==
LOC: MRI 12:49
PROVIDERS: PCP Family Medicine; Visit Provider Orthopaedic Surgery Sports Medicine
DX: M25.561 Pain in right knee (principal); S83.511A Sprain of anterior cruciate ligament of right knee, initial encounter; S83.411A Sprain of medial collateral ligament of right knee, initial encounter; M25.461 Effusion, right knee; S83.241A Other tear of medial meniscus, current injury, right knee, initial encounter; S83.206A Unspecified tear of unspecified meniscus, current injury, right knee, initial encounter
CPT/HCPCS: 73721

== ENCOUNTER 2024-08-24 06:09 | Day surgery (SDC) | payer BC, SELFPAY ==
[2024-08-24] VITALS (15 sets, daily range): BP systolic 99–132; BP diastolic 66–90; PULSE 58–72; RESP 12–22; TEMP 36.3–36.8; O2SAT 97–100; BMI 36.6
[2024-08-24] MEDS: LACTATED RINGERS 1000 ML 1,000 ML 100 ML IV ×2 (06:20→10:30)
--- NOTE | 2024-08-24 07:09 | W.PM.H&PU ---
History & Physical Update History & Physical Update H&P Reviewed and patient assessed: No changes noted
[2024-08-24] MEDS: MIDAZOLAM HCL 1 MG/ML inj IVP (07:15)
[2024-08-24] MEDS: fentaNYL 100 MCG/2 ML inj IVP (07:15)
[2024-08-24] MEDS: SODIUM CHLORIDE 0.9 % (FLUSH) 10 ML SYRINGE IVF (07:18)
--- NOTE | 2024-08-24 07:22 | SUR.PREOP ---
TIME?OUT:?0714 PT/RN/MDA?VERIFICATION?OF?SURGICAL?SITE,?PROCEDURE,?AND?CONSENT OBTAINED?PRIOR?TO?INVASIVE?PROCEDURE.
[2024-08-24 07:32] LABS: Ur HCG Qualitative* Negative (Negative)
[2024-08-24] MEDS: CEFAZOLIN 1 GM inj IVP (07:49)
[2024-08-24] MEDS: Heparin 30,000 units/30 ml 30000 UNIT TOPICAL (08:26)
--- NOTE | 2024-08-24 08:30 | SUR.OPER ---
PATIENT QUESTIONS ANSWERED SATISFACTORILY PREOPERATIVELY.? PATIENT BROUGHT TO OR #2 PER CART.? Patient positioned supine on OR #2 bed.? The perioperative?team supported arms bilaterally on arm boards.? Final approval of positioning by surgeon.? CONTINUOUS IRRIGATION OF THE RIGHT KNEE DURING THE PROCEDURE WITH NACL.
--- NOTE | 2024-08-24 10:39 | P.NB_ITS ---
Nerve Block Nerve Block Time Seen by Provider: 07:20 Date Seen: 08/24/24 Type of block requested by surgeon for post-operative analgesia: popliteal Side: right Time out performed: Yes Verification of patient name: Yes Verification of date of : Yes Site marking: site marked Name of person performing procedure: Handy Continuous monitoring Was continuous monitoring of O2 sat, B/P, environmental monitoring specialist, recorded every 15 minutes?: Yes Procedure Checklist: sterile prep, needles and gloves Ultrasound guided. Images saved: Yes Medications given in 5ml increments after negative aspiration: Marcaine %: 0.25 mL: 13 Needle gauge: 20 and Exparel mL: 7 Patient tolerated procedure well: Yes Additional comments: Needle noted adjacent to nerve Block Charges Block Charge (with Pro Fee): Sciatic Nerve Use of Ultrasound Machine for Block: Yes- US Guidance/pain block
--- NOTE | 2024-08-24 10:40 | W.PM.NB ---
Nerve Block Nerve Block Time Seen by Provider: 07:20 Date Seen: 08/24/24 Type of block requested by surgeon for post-operative analgesia: adductor canal Side: right Time out performed: Yes Verification of patient name: Yes Verification of date of : Yes Site marking: site marked Name of person performing procedure: Handy Continuous monitoring Was continuous monitoring of O2 sat, B/P, electronic device monitor, recorded every 15 minutes?: Yes Procedure Checklist: sterile prep, needles and gloves Ultrasound guided. Images saved: Yes Medications given in 5ml increments after negative aspiration: Marcaine %: 0.25 mL: 7 Needle gauge: 20 and Exparel mL: 3 Patient tolerated procedure well: Yes Block Charges Block Charge (with Pro Fee): Femoral Nerve Use of Ultrasound Machine for Block: Yes- US Guidance/pain block
--- NOTE | 2024-08-24 10:41 | P.ANES_ITS ---
Anesthesia Charges Start Date/Time Anesthesia Start Date: 08/24/24 Anesthesia Start Time: 07:37 Stop Date/Time Anesthesia Stop Date: 08/24/24 Anesthesia Stop Time: 11:13 Coding CPT Codes CPT Codes: ANESTH KNEE JOINT SURGERY - 59549 ([id number]) P2 - PATIENT W/MILD SYST DISEASE, QK - GRINDING WHEEL OPERATOR 2-4 CNCRNT ANES PROC, QX - CELL ROOM SUPERVISOR SVC W/ MD MED DIRECTION
--- NOTE | 2024-08-24 10:41 | W.ANESCHARGE ---
Anesthesia Charges Start Date/Time Anesthesia Start Date: 08/24/24 Anesthesia Start Time: 07:37 Stop Date/Time Anesthesia Stop Date: 08/24/24 Anesthesia Stop Time: 11:13 Coding CPT Codes CPT Codes: ANESTH KNEE JOINT SURGERY - 77902 ([id number]) P2 - PATIENT W/MILD SYST DISEASE, QK - DROP WIRE ALIGNER 2-4 CNCRNT ANES PROC, QX - CHICKEN FANCIER SVC W/ MD MED DIRECTION
--- NOTE | 2024-08-24 11:13 | P.ANES_ITS ---
Anesthesia Charges Start Date/Time Anesthesia Start Date: 08/24/24 Anesthesia Start Time: 07:37 Stop Date/Time Anesthesia Stop Date: 08/24/24 Anesthesia Stop Time: 11:13 Coding CPT Codes CPT Codes: ANESTH KNEE JOINT SURGERY - 79618 ([id number]) P2 - PATIENT W/MILD SYST DISEASE, QK - MARINE STEAM FITTER 2-4 CNCRNT ANES PROC, QX - PICK UP OPERATOR SVC W/ MD MED DIRECTION
--- NOTE | 2024-08-24 11:13 | W.ANESCHARGE ---
Anesthesia Charges Start Date/Time Anesthesia Start Date: 08/24/24 Anesthesia Start Time: 07:37 Stop Date/Time Anesthesia Stop Date: 08/24/24 Anesthesia Stop Time: 11:13 Coding CPT Codes CPT Codes: ANESTH KNEE JOINT SURGERY - 37328 ([id number]) P2 - PATIENT W/MILD SYST DISEASE, QK - DIVERSIFIED CROPS FARMER 2-4 CNCRNT ANES PROC, QX - MACHINIST HELPER MARINE SVC W/ MD MED DIRECTION
--- NOTE | 2024-08-24 11:37 | SUR.PHASEI ---
Patient awake and appropriate during PACU. She denies pain or nausea, warm blankets given. She took some ice chips and active ice applied.
--- NOTE | 2024-08-24 11:38 | SUR.PHASEI ---
Patient meets discharge criteria from PACU.
--- NOTE | 2024-08-24 11:49 | P.ORPRC_ITS ---
Procedure Note Date of procedure: 08/24/24 Procedure: PREOPERATIVE DIAGNOSIS: 1. Right knee ACL tear/sprain (grade 3) 2. Right knee MCL tear/sprain (grade 3) 3. Right knee medial meniscus tear, posterior horn undersurface POSTOPERATIVE DIAGNOSIS: 1. Right knee ACL tear/sprain (grade 3) 2. Right knee MCL tear/sprain (grade 3) 3. Right knee medial meniscus tear, posterior horn undersurface PROCEDURE: 1. Right knee arthroscopically assisted ACL reconstruction with graftlink allograft 2. Right knee MCL open repair (extra-articular ligament repair) 3. Right knee medial meniscus all-inside repair 4. Bone graft/bone marrow concentrate harvest from proximal tibia via separate incision (60ml aspirated) [id number] 5. Intraoperative fluoroscopy up to 1 hour. C-arm fluoroscopy operated by Genaro Bahena M.D. for intraoperative femoral button flip evaluation. Fluoroscopy time was 9 seconds SURGEON: Genaro Bahena M.D. POURING CRANE OPERATOR: Berto Astorga PA-C; Zo Bauman PA-C. Of note, an assistant to the president was critical for this case to aid in patient positioning, knee manipulation, instrument exchange, and closure. ANESTHESIA: Spinal plus regional block EBL: 50 mL TOURNIQUET: 2 hours at 300 torr IMPLANTS: Arthrex femoral tight rope button and tibial fixation via 4.75 mm peek swivelock suture anchor. MCL repair undertaken with the following: Femoral side knee FiberTak pre-loaded with internal brace Tibial side with 4.75 mm peek SwiveLock suture anchor Meniscus repair with 2 separate 12 degree fiber stitch knotless anchors COMPLICATIONS: None evident INDICATIONS: The patient is a pleasant 38-year-old female. They have experienced a right knee injury resulting in knee instability. MRI was obtained and confirmed complete ACL disruption, consistent with the physical exam. MRI also suggested high-grade MCL sprain from the femoral attachment and posterior horn medial meniscus tear. Given the findings, as well as the patient's desire to remain physically active with cutting/pivoting type activities, surgery was recommended. FINDINGS: Exam under anesthesia revealed positive Lennie's grade 2 B. Thud- clunk pivot shift. Stable posterior drawer. Grade 3 opening with valgus stress at 30? and grade 2 at 0?. Stable to varus stress. Negative dial test at 30 and 90?. 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 Otherwise, intact articular cartilage medial compartment. Torn medial meniscus of the posterior horn that was near complete primarily began the undersurface with a relatively unstable flap. There was a secondary tear more around the periphery of the posterior horn. This was felt worthy to be repaired. Lateral meniscus was intact. Intact articular cartilage lateral compartment. Intact articular cartilage patellofemoral compartment. No loose bodies evident. ACL was torn and had a positive empty wall sign. Some fibers were attempting to be re stuck/healed to the femoral wall, but of great laxity. PCL was intact. DESCRIPTION OF PROCEDURE: After a thorough discussion of risks, benefits, and alternatives, the patient was brought to the operating room and placed upon the operating table. Induction of anesthesia was undertaken as previously noted. 2 g IV Ancef was administered within 1 hr of incision preoperatively. Appropriate time-out was performed identifying proper patient, site, and procedure. The [facility] lower extremity was prepped and draped in the appropriate sterile fashion using ChloraPrep. Prior to tourniquet inflation, a small incision was made just lateral to tibial tubercle with a 15 blade scalpel. The Arthrex Lan bone marrow aspiration trocar was then inserted and directed posterior and slightly proximal. 60 mL bone marrow aspiration was completed in a heparinized syringe. The volume was drawn to total 60ml of fluid for centrifugation. This was then spun in a centrifuge and bone marrow concentrate later utilized. This concentrate was mixed with Allosync Pure DBM and the autograft bone captured in the graft net device from tunnel drilling. This mixture was eventually placed into the sockets that were created for the ACL graft, as described below. After the bone marrow aspiration, the limb was exsanguinated and tourniquet inflated. Anterolateral and anteromedial portals were established with an 11 blade, and a diagnostic arthroscopy was performed. This identified the findings as noted above. Following the diagnostic arthroscopy, the medial meniscus repair was undertaken. All inside repair. The meniscal rasp was inserted and allowed some freshening of the meniscal tear. A fiber Stitch device was initially repaired on the undersurface in a longitudinal mattress fashion. A 2nd device was then utilized on the superior surface. There was a small flap that was still present on the under surface and this was debrided minimally with a torpedo shaver. The meniscus was reprobed and found to be stable. We then turned our attention to the ACL reconstruction. The graft had been thawing on the back table inside the package in warm saline. Once this was properly thawed, it was prepared with the passing sutures and the femoral tight rope button. It was then placed on tension, and sized. It was approximately a 9 mm diameter graft. While the graft was being prepared, simultaneously, the remaining ACL stump was debrided with a combination of shaver and basket forceps. After evaluating the current fibers of the existing ACL stump, we drilled the tunnels in an independent manner for anatomic tunnel positioning. A 9 mm flip cutter was utilized for the femoral tunnel and for the tibial tunnel. After preparing the graft and drilling tunnels, the graft was passed without difficulty and the femoral button was directly visualized to exit the femoral tunnel and the button was flipped. C-arm fluoroscopic imaging confirmed proper flipping of the femoral button and was apposed against the femoral cortex. The knee was then cycled 35+ times with tension on the graft while holding the internal brace sutures to ensure that the button state apposed against the femoral cortex. The tibial for both the graft sutures in the internal brace w ith a 4.75 mm peek SwiveLock suture anchor. Excellent tension on the graft was achieved. A Lennie test was performed again, and found to be stable grade 1A. The graft was reprobed on the inside of the knee and again found to be taut and stable. Final tensioning was performed on the femoral side. We then turned our attention to the MCL repair. A longitudinal incision was made overlying the medial femoral epicondyle and just distal. A secondary longitudinal incision was made near the tibial insertion site approximately 6 cm distal from the joint line. Blunt dissection through the subcutaneous fat with Metzenbaum scissors allowed us to identify the sartorial fascia. This was divided longitudinally in both of these incision sites. The MCL was identified on the more proximal medial epicondylar region and was divided longitudinally and elevated from its scar. A knee FiberTak anchor was then drilled, placed, and the internal brace sutures passed deep to the sartorial fascia on top of the MCL. This was eventually secured approximately 6 cm distal from the joint line just anterior to the posterior edge of the medial proximal tibia. The internal brace was secured with a peek SwiveLock suture anchor after drilling, tapping, and placing it with the knee in approximately 30? of flexion and a slight varus load and neutral rotation. The more proximal part of the MCL was repaired prior to internal brace securing, however and performed with Krackow sutures on either leaflet of the MCL. These were brought more proximal to the knee FiberTak. This was then oversewed with # 0 Vicryl with excellent reapproximation. The sartorial fascia was reclosed with # 0 Vicryl. The remaining incision sites were closed with 2-0 StrataFix and 4-0 Stratafix for subcutaneous and subcuticular closure, respectively. Dressings were applied, tourniquet deflated, and the T scope hinged knee brace was applied. The patient was awoken from anesthesia and transferred to the PACU in stable condition. PLAN: 1. Toe-touch weightbear operative extremity times 5-6 weeks for meniscus repair protection. Crutch / walker ambulation assistance PRN. 2. Ice, acetominophen and/or ibuprofen, and oxycodone for pain as needed. 3. Knee range of motion and quad sets/straight leg raise regularly 4. Follow up with PA visit in 1-2 weeks for a wound check.
== END 2024-08-24 13:48 | disposition home or self-care (01) ==
LOC: OR 06:10
PROVIDERS: PCP Family Medicine; Visit Provider Orthopaedic Surgery Sports Medicine
PROC: (CPT 27428; principal; 2024-08-24 07:30)
DX: S83.241A Other tear of medial meniscus, current injury, right knee, initial encounter (principal); S83.411A Sprain of medial collateral ligament of right knee, initial encounter; S83.511A Sprain of anterior cruciate ligament of right knee, initial encounter; G89.18 Other acute postprocedural pain
CPT/HCPCS: 29888; 29882; 27405; 20902; 01400; 64445; 64447; 73560; 76000; 76942; 81025; C1713; J0665; J0666; J0690; J1100; J1644; J2250; J2405; J2704; J3010; J7120; L1833; Q4125